=== PATIENT | female | born 1965 | race Caucasian/White ===

== ENCOUNTER 2020-03-04 07:40 | Outpatient (CLI) | payer OTHER, SELFPAY ==
--- NOTE | ~2020-03-04 | CT_ITS ---
EXAMINATION: CT abdomen pelvis wo/w con DATE: 03/04/2020 08:53 INDICATION: Microscopic hematuria TECHNIQUE: Computed tomography (CT) of the abdomen and pelvis was performed without and subsequently with 130 cc Omnipaque 350 intravenous contrast. Automated exposure control and iterative reconstructi on technique were employed. Exam dose: 1195.57 mGy-cm total exam DLP. COMPARISON: 06/04/2016 CT abdomen pelvis FINDINGS: The lung bases are clear. Normal heart size. No pericardial or pleural effusion. Bilateral breast implants are present. The liver, gallbladder, spleen, pancreas, and adrenal glands and kidneys are unremarkable. There is a 5 mm upper pole right renal cyst. No filling defect of the kidney collecting systems, ureters or uri nary bladder. Normal caliber of the abdominal aorta with mild atherosclerotic calcification. No intraperitoneal or retroperitoneal or pelvic mass lesion or adenopathy or ascites. Normal appendix. There is diverticulosis of the sigmoid colon; no CT evidence of diverticulitis. No bowel obstruction or intraperitoneal free air. The uterus, adnexal areas and urinary bladder are unremarkable. Small fat-containing umbilical hernia. Degenerative disc disease at L5-S1. Included skeletal structures are otherwise unremarkable. IMPRESSION: 5 mm upper pole right renal cyst No cause for microscopic hematuria is identified Mild sigmoid colon diverticulosis Degenerative disc disease at L5-S1 Reviewed, dictated and finalized at Location A. Reviewed, dictated and finalized at location A.
--- NOTE | ~2020-03-04 | XR_ITS ---
XR abdomen/kub 1V DATE: 03/04/2020 08:16 INDICATION: Microscopic hematuria TECHNIQUE: AP projection, 2 views COMPARISON: 03/04/2020 CT abdomen pelvis without and subsequently with IV contrast material FINDINGS: There is a prominent of fecal material within the colon. No bowel obstruction is detected. The psoas shadows are intact. No visceromegaly is detected. Included skeletal structures are unremarkable. IMPRESSION: Nonspecific abdomen Reviewed, dictated and finalized at Location A. Reviewed, dictated and finalized at location A. IMPRESSION: Nonspecific abdomen
== END 2020-03-04 07:41 | disposition home or self-care (01) ==
PROVIDERS: PCP Internal Medicine; Visit Provider Urology
DX: R31.29 Other microscopic hematuria (principal); N28.1 Cyst of kidney, acquired; K57.90 Diverticulosis of intestine, part unspecified, without perforation or abscess without bleeding; M51.37 Other intervertebral disc degeneration, lumbosacral region
CPT/HCPCS: 74018; 74178; Q9967

== ENCOUNTER 2021-08-19 08:47 | Emergency (ER) | payer OTHER, SELFPAY ==
--- NOTE | ~2021-08-19 | CT_ITS ---
EXAMINATION: CT brain wo con INDICATION: Headache COMPARISON: None TECHNIQUE: Standard unenhanced head CT. The dose-length product (DLP) was 605.33 mGy-cm. The mA was a djusted according to patient size. Iterative reconstruction technique was employed. FINDINGS: There is no intracranial hemorrhage, acute infarction, or abnormal mass lesion. The ventric les are normal. There is no abnormal mass effect or midline shift. The styles-white matter differentiat ion is normal. The basal cisterns are patent. The orbits are normal. The paranasal sinuses, mastoids and calvarium are normal. IMPRESSION: 1. No acute intracranial abnormality. Reviewed, dictated and finalized at location A.
--- NOTE | ~2021-08-19 | CT_ITS ---
EXAMINATION: CT cervical spine wo con EXAM DATE: 08/19/2021 09:51 INDICATION: Fell down 8 steps 4 days ago. TECHNIQUE: Spiral CT of the cervical spine was performed without contrast. Axial images were reviewe d. Coronal and sagittal reformatted images cervical spine were also reviewed. The dose-length produc t (DLP) for this examination was 322.55 mGy-cm. The exposure was tailored according to patient size (auto mA exposure control), and iterative reconstruction (ASIR) was used as additional dose reduction technique. There is no prior study for comparison. FINDINGS: There is mild reversal of the normal cervical lordosis which may be positional or spasm. Th ere is no evidence of acute cervical fracture. The odontoid process is intact. Pre-dens space is no rmal. Prevertebral soft tissue is normal. There are no soft tissue abnormalities identified. There is no disc space widening or traumatic vertebral body subluxation suspected. There is moderate disc disease at C5-6, mild to moderate at C6-7. Fused right C2-3 facet joints. Mild to moderate cervical arthropathy. A detailed level by level evaluation of spondylosis can be added as addendum if requeste d. IMPRESSION: 1. No acute cervical fracture. 2. Reversal normal cervical lordosis. 3. Mild to moderate cervical spondylosis. Reviewed, dictated and finalized at location B.
[2021-08-19 09:02] VITALS: BP 146/85; PULSE 85; RESP 18; TEMP 36.4; O2SAT 99
--- NOTE | 2021-08-19 10:50 | ED.GENADULT ---
HPI - General Adult General Chief complaint: Head Injury Stated complaint: FELL 8 STEPS 08/15 HEAD INJ Time Seen by Provider: 08/19/21 09:11 Source: patient Mode of arrival: ambulatory Limitations: no limitations History of Present Illness HPI narrative: Patient presents for evaluation of head injury that occurred 4 days ago after she fell down 8 steps in her home. Patient reports that EMS was called and she was evaluated but refused transport. Patient reports that she believes she may have lost consciousness for a few moments but if so it was brief because she was then able to get up and let her son a.m. Patient reports impact to the coil in the right side of her head. She reports that she has had some headache and nausea that concerned her so she called her primary care who referred her to the emergency room for CT and evaluation. Patient reports she has not had issues with her vision, speech, unilateral weakness, drainage from her orifices. Patient reports pain and stiffness to her neck. Patient also has a bruise to her right buttock but denies any back pain or pain to her sacrum or coccyx. Related Data Home Medications Medication Instructions Recorded Confirmed cholecalciferol (vitamin D3) 100 mcg PO DAILY 08/19/21 [Vitamin D3] escitalopram oxalate mg 08/19/21 estradiol mcg VAGINAL 08/19/21 Allergies Allergy/AdvReac Type Severity Reaction Status Date / Time No Known Allergies Allergy Unknown Verified 08/19/21 09:05 Review of Systems Review of Systems: CONSTITUTIONAL: Denies fever, chills, or sweats. EYES: Denies visual changes, redness, or discharge. ENT: Denies rhinorrhea, congestion, sore throat, or otalgia. CARDIOVASCULAR: Denies chest pain, palpitations, or edema. RESPIRATORY: Denies cough or dyspnea. GASTROINTESTINAL: Reports nausea denies abdominal pain, vomiting, or diarrhea. GENITOURINARY: Denies dysuria or hematuria. SKIN: Reports contusion denies rash or itching. MUSCULOSKELETAL: Reports neck pain denies back pain, joint pain, or myalgia. NEUROLOGIC: Reports headache denies numbness, dizziness, or weakness. PSYCHIATRIC: Denies anxiety or depression. [facility] Family History Family History (Updated 01/09/12 @ 09:39 by DOCTOR UNKNOWN) Other Family history of malignant neoplasm of cervix Family history of malignant neoplasm of male breast Social History Social History Smoking status: Never smoker Alcohol intake: never Exam Narrative: GENERAL: Well-appearing, well-nourished, and in no acute distress. HEAD: Normocephalic, atraumatic. No hematomas or skull deviations palpated. Face symmetrical. EYES: PERRLA and EOMI. ENT: Nares clear, no rhinorrhea or epistaxis. Mucous membranes moist. Oropharynx without tonsillar hypertrophy exudate or other lesions. Bilateral TMs pearly styles nonbulging. No hemotympanum. NECK: Supple. No adenopathy or masses. Range of motion intact. Spasming of paracervical muscles noted. CHEST: Clear to auscultation. No respiratory distress. No wheezes rales or rhonchi HEART: Regular rate and rhythm. No murmur heard. Normal peripheral pulses. ABDOMEN: Soft, nontender, nondistended, normal active bowel sounds. BACK: No vertebral point tenderness. No loss of range of motion. EXTREMITIES: Normal range of motion. No edema. SKIN: Contusion to right buttock. Warm, dry, no rash. NEURO: No focal deficits. Alert and oriented x3. No unilateral weakness. PSYCH: Normal mood and affect. Course Vital Signs Vital signs: Vital Signs Temperature 97.6 F 08/19/21 09:02 Pulse Rate 85 08/19/21 09:02 Respiratory Rate 18 08/19/21 09:02 Blood Pressure 146/85 H 08/19/21 09:02 Pulse Oximetry 99 08/19/21 09:02 Temperature 97.6 F 08/19/21 09:02 Pulse Rate 85 08/19/21 09:02 Respiratory Rate 18 08/19/21 09:02 Blood Pressure 146/85 H 08/19/21 09:02 Pulse Oximetry 99 08/19/21 09:02 Medical Decision Making MICHAEL Narrative Medical decision joy
[2021-08-19] MEDS: IBUPROFEN 600 MG TABLET PO (11:00)
[2021-08-19] MEDS: ONDANSETRON HCL ODT 4 MG TABLET PO (11:00)
== END 2021-08-19 11:49 | disposition home or self-care (01) ==
PROVIDERS: Emergency Provider Emergency Medicine; PCP Internal Medicine
DX: S06.0X9A Concussion with loss of consciousness of unspecified duration, initial encounter (principal); M47.812 Spondylosis without myelopathy or radiculopathy, cervical region; W10.9XXA Fall (on) (from) unspecified stairs and steps, initial encounter
CPT/HCPCS: 70450; 72125; 99284; A9270

== ENCOUNTER → 2022-07-14 16:03 | Outpatient (CLI) | payer OTHER, SELFPAY ==
--- NOTE | ~2022-07-14 | DEXA_ITS ---
Bone Density Report Name: JACY SCOTT Age: 56 Sex: Female Ethnicity: White Date of : 1965 Indication: postmenopausal; screening for osteoporosis; parental hip fracture; Referring Provider: DAKSHA, EARL Jean Study: Bone densitometry was performed. Exam Date: July 14, 2022 Accession number: [id number] Bone Density: Region BMD T-score Z-score Classification AP Spine (L1-L4) 0.839 -1.9 -0.7 Osteopenia Femoral Neck (Left) 0.704 -1.3 -0.2 Osteopenia Total Hip (Left) 0.864 -0.6 0.1 Normal Femoral Neck (Right) 0.638 -1.9 -0.8 Osteopenia Total Hip (Right) 0.817 -1.0 -0.2 Normal Total Hip Mean 0.841 -0.8 -0.1 Normal World Health Organization criteria for BMD impression classify patients as: Normal (T-score at or above -1.0), Osteopenia (T-score between -1.0 and -2.5), or Osteoporosis (T-score at or below -2.5). 10-year Fracture Risk(1): Major Osteoporotic Fracture 16% Hip Fracture 0.9% Reported Risk Factors: [place] (), Neck BMD=0.638, BMI=25.6, parental fracture (1) FRAX(R) Version 3.08. Fracture probability calculated for an untreated patient. Fracture probability may be lower if the patient has received treatment. Clinical Information Provided by Patient: Parent has had a hip fracture Has used the following medications: Vitamin D Patient maximum height was 65.5 Menopause Age: 41 No regular weight bearing exercise Drinks caffeinated beverages Onset of menses at age 13 Number of children 1 Impression: The patient has low bone mass, based on the Total Spine T-score. The patient has an estimated ten-year risk of hip fracture of 0.9% and an estimated ten-year risk of major fracture of 16%, based on the WHO FRAX algorithm. The patient has risk factors, including: parental hip fracture. Discussion: BONE DENSITY IS LOW AT ONE OR MORE SKELETAL SITES. This patient's lowest T-score is low at one or more skeletal sites. It meets the World Health Organization's (WHO) criteria for ?low bone mass? (T-score between -1.0 and -2.5). The patient's 10-year risk of fracture as calculated by FRAX is less than the threshold where pharmacological therapy is recommended by the National Osteoporosis Foundation (NOF). However, all treatment decisions require clinical judgment and consideration of individual patient factors, including patient preferences, comorbidities, previous drug use, risk factors not captured in the FRAX model (e.g., frailty, falls, vitamin D deficiency, increased bone turnover, interval significant decline in bone density) and possible under or overestimation of fracture risk by FRAX. The patient should follow a healthful lifestyle (good nutrition with adequate calcium and vitamin D, and appropriate weight-bearing exercise). Follow-Up: Consider repeating this study in 2 to 3 years
== END ==
PROVIDERS: PCP Internal Medicine; Visit Provider Internal Medicine Medical Oncology
DX: C50.012 Malignant neoplasm of nipple and areola, left female breast (principal); Z17.0 Estrogen receptor positive status [ER+]; Z78.0 Asymptomatic menopausal state; M85.88 Other specified disorders of bone density and structure, other site; M85.852 Other specified disorders of bone density and structure, left thigh; M85.851 Other specified disorders of bone density and structure, right thigh
CPT/HCPCS: 77080

== ENCOUNTER 2024-12-13 08:40 | Outpatient (CLI) | payer OTHER, SELFPAY ==
--- NOTE | ~2024-12-13 | DEXA_ITS ---
Bone Density Report Name: JACY SCOTT Age: 59 Sex: Female Ethnicity: White Date of : 1965 Indication: osteopenia; monitoring treatment; parental hip fracture; cancer; Referring Provider: YAN, BENITO Study: Bone densitometry was performed. Exam Date: December 13, 2024 Accession number: [id number] Bone Density: Region BMD T-score Z-score Classification AP Spine(L1-L4) 0.871 -1.6 -0.2 Osteopenia Femoral Neck (Left) 0.678 -1.5 -0.3 Osteopenia Total Hip (Left) 0.834 -0.9 0.0 Normal Femoral Neck (Right) 0.653 -1.8 -0.5 Osteopenia Total Hip (Right) 0.851 -0.7 0.2 Normal Total Hip Mean 0.842 -0.8 0.1 Normal World Health Organization criteria for BMD impression classify patients as: Normal (T-score at or above -1.0), Osteopenia (T-score between -1.0 and -2.5), or Osteoporosis (T-score at or below -2.5). 10-year Fracture Risk: FRAX not reported because: Treated for osteoporosis Previous Exams: Region Exam Age BMD T-score BMD Change BMD Change Date g/cm2 vs Baseline vs Previous AP Spine (L1-L4) 12/13/2024 59 0.871 -1.6 -0.062 (-6.6%) 0.021 (2.4%)# 09/14/2018 53 0.851 -1.8 -0.082 (-8.8%) -0.082 (-8.8%) 03/18/2015 49 0.933 -1.0 Total Hip(Left) 12/13/2024 59 0.834 -0.9 -0.072 (-8.0%) -0.052 (-5.8%) 09/14/2018 53 0.886 -0.5 -0.021 (-2.3%) -0.021 (-2.3%) 03/18/2015 49 0.907 -0.3 Total Hip(Right) 12/13/2024 59 0.851 -0.7 -0.025 (-2.8%) 0.011 (1.3%)# 09/14/2018 53 0.840 -0.8 -0.036 (-4.1%) -0.036 (-4.1%) 03/18/2015 49 0.875 -0.5 *Denotes significance at 95% confidence level, LSC for AP Spine = 0.022 g/cm2, LSC for Total Hip = 0.027 g/cm2 # Denotes dissimilar scan types or analysis methods Clinical Information Provided by Patient: Parent has had a hip fracture Is being treated for osteoporosis Has used the following medications: Fosamax (i.e. alendronate), Prolia (i.e. denosumab) Has the following medical conditions: Cancer Patient maximum height was 65 Menopause Age: 45 Drinks caffeinated beverages Onset of menses at age 12 Number of children 1 Impression: The patient has low bone mass, based on the Right Femoral Neck T-score. The patient has risk factors, including: parental hip fracture. No significant bone loss was observed. Discussion: PATIENT UNDER TREATMENT WITH NO SIGNIFICANT BMD LOSS SINCE LAST EXAM. In an untreated patient, BMD typically declines with age. A lack of decline or gain is usually a sign that treatment is efficacious and fracture risk is reduced. It is important to ask patients whether they are taking their medications and to encourage continued and appropriate compliance with their osteoporosis therapies to reduce fracture risk. It is also important to review their risk factors and encourage appropriate calcium and vitamin D intakes, exercise, fall prevention and other lifestyle measures. Follow-Up: Consider a repeat BMD and Vertebral Fracture Assessment (VFA) exam in 2 years or sooner if medically necessary, to reassess this patient's status. Reported by: AUDREY on 12/13/2024 9:12:00 AM. Reviewed, dictated and finalized at location [facility]
--- OUTSIDE RECORDS SUMMARY | 2024-12-13 09:11 | XMS_ITS | Encounter Summary ---
Author Organization [facility] Address [address] [place] [address] Care Team Providers Care Pipe Testing Technician Name Role Phone Bret Fraser MD Primary Care Provider [phone] Encounter Details Date Type Department Care Team (Latest Contact Info) Description 02/20/2003 Outpatient Historical [facility] PATIENT IN A BED Naida Wall MD [address] [place] [address] Palmer Argueta MD [address] [place] [address] PREG COMPL NEC-ANTEPART (Primary Dx) Social History Tobacco Use Types Packs/Day Years Used Date Smoking Tobacco: Never Assessed Comments Unknown Sex and Gender Information Value Date Recorded Sex Assigned at Not on file Legal Sex 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 Gender Identity Not on file Sexual Orientation Not on file documented as of this encounter Plan of Treatment Upcoming Encounters Date Type Department Care Team (Late st Contact Info) Description 06/04/2025 1:30 PM CDT Office Visit [facility] ONCOLOGY AND HEMATOLOGY-[facility] [address] [place] [address] Monica Albert MD [address] [place] [address] documented as of this encounter Visit Diagnoses Diagnosis Other specified complication, antepartum(646.83)- Primary Other specified complication, antepartum documented in this encounter Care Teams Pipe Testing Technician Relationship Specialty Start Date End Date Bret Fraser MD [address] [place] [address] PCP - General Internal Medicine 05/28/24 documented as of this encounter
--- OUTSIDE RECORDS SUMMARY | 2024-12-13 09:11 | XMS_ITS | Encounter Summary ---
Author Organization [facility] Address [address] [place] [address] Care Team Providers Care Internet Architect Name Role Phone Bret Fraser MD Primary Care Provider [phone] Encounter Details Date Type Department Care Team (Latest Contact Info) Description 09/03/2024 [facility] [address] Bret Fraser MD [address] [place] [address] DIANELYS KILPATRICKKIARABASSAM PHYSICAL FORM Social History Tobacco Use Types Packs/Day Years Used Date Smoking Tobacco: Never Smokeless Tobacco: Never Comments:counseled by Dr Shari shoemaker Alcohol Use Standard Drinks/Week Comments Never 0 (1 standard drink = 0.6 oz pur e alcohol) PHQ-2 Answer Date Recorded Patient Health Questionnaire-2 Score 0 05/31/2024 Comments No Sex and Gender Information Value Date Recorded Sex Assigned at Not on file Legal Sex Female 7:36 PM CDT Gender Identity Not on file Sexual Orientation Not on file documented as of this encounter Plan of Treatment Upcoming Encounters Date Type Department Care Team (Late st Contact Info) Description 05/30/2025 8:20 AM CDT Office Visit [facility] [address] [place] [address] Bret Fraser MD [facility] [address] documented as of this encounter Visit Diagnoses Not on filedocumented in this encounter Additional Health Concerns Assessment Noted Time PHQ-9 Depression Total Score: 0 05/31/20 24 8:30 AM CDT documented as of this encounter Care Teams Internet Architect Relationship Specialty Start Date End Date Bret Fraser MD [address] [place] [address] PCP - General INTERNAL MEDICINE 05/31/22 documented as of this encounter
--- OUTSIDE RECORDS SUMMARY | 2024-12-13 09:11 | XMS_ITS | Encounter Summary ---
Author Organization [facility] Address [address] [place] [address] Care Team Providers Care Post Closing Specialist Name Role Phone Bret Fraser MD Primary Care Provider [phone] Encounter Details Date Type Department Care Team (Late st Contact Info) Description 02/20/2003 Outpatient Historical [facility] Maternal and Ground Floor S [facility] [address] [place] [address] Naida Wall MD [address] [place] [address] Social History Tobacco Use Types Packs/Day Years Used Date Smoking Tobacco: Never Assessed Comments Unknown Sex and Gender Information Value Date Recorded Sex Assigned at Not on file 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 Gender Identity Not on file Sexual Orientation Not on file documented as of this encounter Plan of Treatment Upcoming Encounters Date Type Department Care Team (Late st Contact Info) Description 06/04/2025 1:30 PM CDT Office Visit [facility] ONCOL[facility]Y AND H[facility]ATOLOGY-[facility] [address] [place] [address] Monica Albert MD [address] [place] [address] documented as of this encounter Visit Diagnoses Not on filedocumented in this encounter Care Teams Post Closing Specialist Relationship Specialty Start Date End Date Bret Fraser MD [address] [place] [address] PCP - General Internal Medicine 05/28/24 documented as of this encounter
--- OUTSIDE RECORDS SUMMARY | 2024-12-13 09:11 | XMS_ITS | Encounter Summary ---
Author Organization [facility] Address [address] [place] [address] Care Team Providers Care Capacitor Inspector Name Role Phone Bret Fraser MD Primary Care Provider [phone] Encounter Details Date Type Department Care Team (Latest Contact Info) Description 05/08/2009 Outpatient Historical [facility] Dflt Department Kady Jones MD [address] [place] [address] [place] [address] Encounter for Antineoplastic Chemotherapy Social History Tobacco Use Types Packs/Day Years Used Date Smoking Tobacco: Never Assessed Comments No Sex and Gender Information Value Date Recorded Sex Assigned at Not on file Legal Sex Female 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 Gender Identity Not on file Sexual Orientation Not on file documented as of this encounter Plan of Treatment Upcoming Encounters Date Type Department Care Team (Late st Contact Info) Description 06/04/2025 1:30 PM CDT Office Visit [facility]ATOLOGY-[facility] [address] [place] [address] Monica Albert MD [address] [place] [address] documented as of this encounter Visit Diagnoses Diagnosis Encounter for antineoplastic chemotherapy documented in this encounter Care Teams Capacitor Inspector Relationship Specialty Start Date End Date Bret Fraser MD [address] [place] [address] PCP - General Internal Medicine 05/28/24 documented as of this encounter
--- OUTSIDE RECORDS SUMMARY | 2024-12-13 09:11 | XMS_ITS | Encounter Summary ---
Author Organization [facility] Address [address] [place] [address] Care Team Providers Care Facilities Administrator Name Role Phone Bret Fraser MD Primary Care Provider [phone] Encounter Details Date Type Department Care Team (Late st Contact Info) Description 01/09/2003 Outpatient Historical [facility] Maternal and Ground Floor S [facility] [address] [place] [address] Palmer Argueta MD [address] [place] [address] Social History Tobacco Use Types Packs/Day Years Used Date Smoking Tobacco: Never Assessed Comments Unknown Sex and Gender Information Value Date Recorded Sex Assigned at Not on file Legal Sex Female 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 [address] [place] [address] Monica Albert MD [address] [place] [address] documented as of this encounter Visit Diagnoses Not on filedocumented in this encounter Care Teams Facilities Administrator Relationship Specialty Start Date End Date rBet Fraser MD [address] [place] [address] PCP - General Internal Medicine 05/28/24 documented as of this encounter
--- OUTSIDE RECORDS SUMMARY | 2024-12-13 09:11 | XMS_ITS | Encounter Summary ---
Author Organization [facility] Address 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 ONCOLOGY AND HEMATOLOGY-[address] [address] Monica Albert MD [address] [place] [address] documented as of this encounter Visit Diagnoses Diagnosis Elderly primigravida, antepartum- Primary documented in this encounter Care Teams Elevator Troubleshooter Relationship Specialty Start Date End Date Bret Fraser MD [address] [place] [address] PCP - General Internal Medicine 05/28/24 documented as of this encounter
--- OUTSIDE RECORDS SUMMARY | 2024-12-13 09:11 | XMS_ITS | Encounter Summary ---
Author Organization [facility] Address [address] [place] [address] Care Team Providers Care Oracle Hrms Developer Name Role Phone Bret Fraser MD Primary Care Provider [phone] Encounter Details Date Type Department Care Team (Late st Contact Info) Description 03/28/2003 Outpatient Historical [facility] Maternal and Ground Floor [facility] [address] [place] [address] Naida Wall MD [address] [place] [address] Social History Tobacco Use Types Packs/Day Years Used Date Smoking Tobacco: Never Assessed Comments Unknown Sex and Gender Information Value Date Recorded Sex Assigned at Not on file 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 Gender Identity Not on file Sexual Orientation Not on file documented as of this encounter Plan of Treatment Upcoming Encounters Date Type Department Care Team (Late st Contact Info) Description 06/04/2025 1:30 PM CDT Office Visit [facility] ONCOLOG[facility]ATOLOGY-[facility] [address] [place] [address] Monica Albert MD [address] [place] [address] documented as of this encounter Visit Diagnoses Not on filedocumented in this encounter Care Teams Oracle Hrms Developer Relationship Specialty Start Date End Date Bret Fraser MD [address] [place] [address] PCP - General Internal Medicine 05/28/24 documented as of this encounter
--- OUTSIDE RECORDS SUMMARY | 2024-12-13 09:11 | XMS_ITS | Encounter Summary ---
Author Organization [facility] Address 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 Gender Identity Not on file Sexual Orientation Not on file documented as of this encounter Plan of Treatment Upcoming Encounters Date Type Department Care Team (Late st Contact Info) Description 06/04/2025 1:30 PM CDT Office Visit [facility] ONCOLOGY AND HEMATOLOGY-[address] [address] Monica Albert MD [address] [place] [address] documented as of this encounter Visit Diagnoses Not on filedocumented in this encounter Care Teams Movie Actor Relationship Specialty Start Date End Date Bret Fraser MD [address] [place] [address] PCP - General Internal Medicine 05/28/24 documented as of this encounter
--- OUTSIDE RECORDS SUMMARY | 2024-12-13 09:11 | XMS_ITS | Encounter Summary ---
Author Organization [facility] Address [address] [place] [address] Care Team Providers Care Padded Products Inspector Trimmer Name Role Phone Bret Fraser MD Primary Care Provider [phone] Encounter Details Date Type Department Care Team (Latest Contact Info) Description 02/17/2009 Outpatient Historical [facility] [address] Rachel Calix MD [address] [address] Malignant Neoplasm of Breast (Female), Unspecified Site (CMS/HCC) Social History Tobacco Use Types Packs/Day Years Used Date Smoking Tobacco: Never Assessed Comments Unknown Sex and Gender Information Value Date Recorded Sex Assigned at Not on file 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 Gender Identity Not on file Sexual Orientation Not on file documented as of this encounter Plan of Treatment Upcoming Encounters Date Type Department Care Team (Late st Contact Info) Description 06/04/2025 1:30 PM CDT Office Visit [facility] ONCOLOGY AND HEMATOLOGY-[address] [address] Monica Albert MD [address] [place] [address] documented as of this encounter Procedures Procedure Name Priority Date/Time Associated Diagnosis Comments CBC WITH DIFFERENTIAL Routine 02/17/2009 9:21 PM CDT COMPREHENSIVE METABOLIC PANEL Routine 02/17/2009 9:21 PM CDT documented in this encounter Results * (ABNORMAL) COMPREHENSIVE METABOLIC PANEL (02/17/2009 9:21 PM CDT) CALCIUM 9.6 8.6 - 10.2 mg/dL [facility] CHLORIDE 100 96 - 108 mmol/L [facility] ALBUMIN 4.4 3.4 - 4.8 g/dL [facility] CREATININE 0.79 0.51 - 0.95 mg/dL [facility] SODIUM 136 135 - 145 mmol/L [facility] ALT 59(H) 0 - 31 U/L [facility] ALKALINE PHOSPHATASE 55 35 - 104 U/L [facility] BILIRUBIN TOTAL 0.3 0.2 - 1.0 mg/dL [facility] CO2 28 22 - 30 mmol/L [facility] TOTAL PROTEIN 7.1 6.3 - 8.6 g/dL [facility] POTASSIUM 4.1 3.5 - 4.9 mmol/L [facility] GLUCOSE 95 65 - 99 mg/dL [facility] AST 41(H) 12 - 32 U/L [facility] BUN 17 6 - 20 mg/dL [facility] GFR, >60 >=60 mL/min/1.7 sq meter [facility] GFR >60 >=60 mL/min/1.7 sq meter [facility] Comment: Modification of Diet in Renal Disease (MDRD) study formula. Estimated GFR rate interpretative information for both Americans and non- Americans is available on the [facility] Intranet at: [email or web address] Select: Lab Policies and Procedures Select: Reference Ranges - GFR Blood specimen (specimen) 02/17/2009 9:21 PM CDT 02/17/2009 9:21 PM CDT us Rachel Calix MD CHEMISTRY ORDERABLES Edited INTERFACE SYSTEM Refer to clinic/hospital department [facility] CLIA# [id number] [address] [place] [address] * (ABNORMAL) CBC WITH DIFFERENTIAL (02/17/2009 9:21 PM CDT) MCV 93.2 82.0 - 99.0 fL [facility] PLATELETS 201 140 - 350 K/uL [facility] HEMOGLOBIN 12.9 11.8 - 14.8 g/dL [facility] RDW 12.5 11.5 - 14.5 % [facility] WBC 3.0(L) 4.0 - 9.8 K/uL [facility] MCH 31.4 27.2 - 32.6 pg [facility] MPV 11.5 9.3 - 12.4 fL [facility] HEMATOCRIT 38.3 35.5 - 44.0 % [facility] RDW-STDEV 42.0 37.1 - 48.7 fL [facility] RBC 4.11 3.90 - 4.90 M/uL [facility] MCHC 33.7 31.5 - 35.5 % [facility] EOSINOPHILS 3 0 - 7 % [facility] EOSINOPHIL ABSOLUTE 0.09 0.00 - 0.70 K/uL [facility] LYMPHOCYTES 25 16 - 45 % [facility] LYMPHOCYTE ABSOLUTE 0.75 0.70 - 4.50 K/uL [facility] BASOPHILS 1 0 - 2 % [facility] BASOPHILS ABSOLUTE 0.03 0.00 - 0.20 K/uL [facility] MONOCYTES 15(H) 3 - 13 % [facility] MONOCYTE ABSOLUTE 0.43 0.10 - 1.30 K/uL [facility] NEUTROPHILS 56 45 - 70 % [facility] NEUTROPHIL ABSOLUTE 1.65(L) 1.90 - 7.00 K/uL [facility] Blood specimen (specimen) 02/17/2009 9:21 PM CDT 02/17/2009 9:21 PM CDT Narrative INTERFACE SYSTEM - 02/19/2009 2:06 PM CDT faxed to [phone] 02/19/09 14:06 ve us Rachel aClix MD HEMATOLOGY ORDERABLES Edited INTERFACE SYSTEM Refer to clinic/hospital department [facility] CLIA# [id number] [address] [place] [address] documented in this encounter Visit Diagnoses Diagnosis Malignant neoplasm of breast (female), unspecified site (CMS/HCC) Malignant neoplasm of breast (female), unspecified site documented in this encounter Care Teams Padded Products Inspector Trimmer Relationship Specialty Start Date End Date Bret Fraser MD [address] [place] [address] PCP - General Internal Medicine 05/28/24 documented as of this encounter
--- OUTSIDE RECORDS SUMMARY | 2024-12-13 09:11 | XMS_ITS | Encounter Summary ---
Author Organization [facility] Address [address] [place] [address] Care Team Providers Care Family Protection Specialist Name Role Phone Bret Fraser MD Primary Care Provider [phone] Encounter Details Date Type Department Care Team (Late st Contact Info) Description 03/27/2009 Outpatient Historical [facility], [address] Kady Jones MD [address] [place] [address] [place] [address] Malignant Neoplasm of Breast (Female), Unspecified Site (CMS/HCC) Social History Tobacco Use Types Packs/Day Years Used Date Smoking Tobacco: Never Assessed Comments Unknown Sex and Gender Information Value Date Recorded Sex Assigned at Not on file 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 Gender Identity Not on file Sexual Orientation Not on file documented as of this encounter Plan of Treatment Upcoming Encounters Date Type Department Care Team (Late st Contact Info) Description 06/04/2025 1:30 PM CDT Office Visit [facility] ONCOLOGY AND HEMATOLOGY[address] [address] Monica Albert MD [address] [place] [address] documented as of this encounter Procedures Procedure Name Priority Date/Time Associated Diagnosis Comments CANCER ANTIGEN 27-29 Routine 03/27/2009 8:57 PM CDT COMPREHENSIVE METABOLIC PANEL Routine 03/27/2009 8:57 PM CDT documented in this encounter Results * CANCER ANTIGEN 27-29 (03/27/2009 8:57 PM CDT) CA 27-29 15 <38 U/mL [facility] Comment: THIS TEST WAS PERFORMED USING THE SIEMENS (Yulex) CHEMILUMINESCENT METHOD. VALUES OBTAINED FROM DIFFERENT ASSAY METHODS CANNOT BE USED INTERCHANGEABLY. CA27.29 LEVELS, REGARDLESS OF VALUE, SHOULD NOT BE INTERPRETED ABSOLUTE EVIDENCE OF THE PRESENCE OR ABSENCE OF DISEASE. Lab test performed by: [facility] [address] [place] [address] JOSEPH CH MDThibecky test was performed using the Elias Borges Urzeda/Damaso CA 27.29 Assay. 03/27/2009 8:57 PM CDT 03/27/2009 8:59 PM CDT us Kady Jones MD CHEMISTRY ORDERABLES COM Fi nal Result INTERFACE SYSTEM Refer to clinic/hospital department [facility] CLIA# [id number] [address] [facility] [place] [place] [address] * (ABNORMAL) COMPREHENSIVE METABOLIC PANEL (03/27/2009 8:57 PM CDT) CO2 27 22 - 30 mmol/L [facility] BILIRUBIN TOTAL 0.3 0.2 - 1.0 mg/dL [facility] POTASSIUM 4.2 3.5 - 4.9 mmol/L [facility] TOTAL PROTEIN 7.0 6.3 - 8.6 g/dL [facility] GLUCOSE 81 65 - 99 mg/dL [facility] AST 38(H) 12 - 32 U/L [facility] BUN 13 6 - 20 mg/dL [facility] CALCIUM 10.0 8.6 - 10.2 mg/dL [facility] ALBUMIN 4.4 3.4 - 4.8 g/dL [facility] CHLORIDE 103 96 - 108 mmol/L [facility] CREATININE 0.80 0.51 - 0.95 mg/dL [facility] ALT 38(H) 0 - 31 U/L [facility] SODIUM 138 135 - 145 mmol/L [facility] ALKALINE PHOSPHATASE 69 35 - 104 U/L [facility] GFR, >60 >=60 mL/min/1.7 sq meter [facility] GFR >60 >=60 mL/min/1.7 sq meter [facility] Comment: Modification of Diet in Renal Disease (MDRD) study formula. Estimated GFR rate interpretative information for both Americans and non- Americans is available on the [facility] Intranet at: [email or web address] Select: Lab Policies and Procedures Select: Reference Ranges - GFR 03/27/2009 8:57 PM CDT 03/27/2009 8:57 PM CDT Kady Jones MD CHEMISTRY ORDERABLES Edited INTERFACE SYSTEM Refer to clinic/hospital department [facility] CLIA# [id number] [address] [place] [address] documented in this encounter Visit Diagnoses Diagnosis Malignant neoplasm of breast (female), unspecified site (CMS/HCC) Malignant neoplasm of breast (female), unspecified site documented in this encounter Care Teams Family Protection Specialist Relationship Specialty Start Date End Date Bret Fraser MD [address] [place] [address] (work) PCP - General Internal Medicine 05/28/24 documented as of this encounter
--- OUTSIDE RECORDS SUMMARY | 2024-12-13 09:11 | XMS_ITS | Encounter Summary ---
Author Organization [facility] Address 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 Gender Identity Not on file Sexual Orientation Not on file documented as of this encounter Plan of Treatment Upcoming Encounters Date Type Department Care Team (Late st Contact Info) Description 06/04/2025 1:30 PM CDT Office Visit [facility] ONCOLOGY AND HEMATOLOGY-[address] [address] Monica Albert MD [address] [place] [address] documented as of this encounter Visit Diagnoses Diagnosis Elderly primigravida, antepartum- Primary documented in this encounter Care Teams Credit Collections Manager Relationship Specialty Start Date End Date Bret Fraser MD [address] [place] [address] PCP - General Internal Medicine 05/28/24 documented as of this encounter
--- OUTSIDE RECORDS SUMMARY | 2024-12-13 09:11 | XMS_ITS | Encounter Summary ---
Author Organization [facility] Address [address] [place] [address] Care Team Providers Care Captain Waiter/Waitress Name Role Phone Bret Fraser MD Primary Care Provider Encounter Details Date Type Department Care Team (Latest Contact Info) Description 06/09/2009 Outpatient Historical [facility] Dflt Department Kady Jones MD [address] [place] [address] [place] [address] Encounter for Antineoplastic Chemotherapy Social History Tobacco Use Types Packs/Day Years Used Date Smoking Tobacco: Never Alcohol Use Standard Drinks/Week Comments Yes 0 (1 standard drink = 0.6 oz pur e alcohol) rare Comments No Sex and Gender Information Value Date Recorded Sex Assigned at Not on file 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 Gender Identity Not on file Sexual Orientation Not on file documented as of this encounter Plan of Treatment Upcoming Encounters Date Type Department Care Team (Late st Contact Info) Description 06/04/2025 1:30 PM CDT Office Visit [facility] ONCOLOGY AND HEMATOLOGY-[address] [address] Monica Albert MD [address] [place] [address] documented as of this encounter Visit Diagnoses Diagnosis Encounter for antineoplastic chemotherapy documented in this encounter Care Teams Captain Waiter/Waitress Relationship Specialty Start Date End Date Bret Fraser MD [address] [place] [address] PCP - General Internal Medicine 05/28/24 documented as of this encounter
--- OUTSIDE RECORDS SUMMARY | 2024-12-13 09:11 | XMS_ITS | Clinical Summary ---
Author Organization [facility] Address [address] [place] [address] Care Team Providers Care Pathology Lab Technician Name Role Phone Bret Fraser MD Primary Care Provider [phone] Allergies Active Allergy Reactions Criticality Noted Date Comments Alendronate Other (see comment) 11/29/2023 Tail bone and hip pain Medications Cholecalciferol 50 MCG (1999 UT) Cap Take 4,000 Int'l Units by mouth. Active Estradiol 10 MCG vaginal tablet 03/30/20 22 Active amphetamine-dextr oamphetamine (ADDERALL) 10 MG tabletIndications :Attention deficit hyperactivity disorder (ADHD), predominantly inattentive type Take 1 tablet (10 mg total) by mouth daily. 30 tablet 05/31/20 24 Active escitalopram (LEXAPRO) 10 MG tabletIndications :HANS (generalized anxiety disorder) Take 1 tablet (10 mg total) by mouth every morning. 90 tablet 1 05/31/20 24 Active oxybutynin XL (DITROPAN-XL) 5 MG 24 hr tabletIndications :Mixed stress and urge urinary incontinence Take 1 tablet (5 mg total) by mouth daily. 90 tablet 1 05/31/20 24 Active denosumab (PROLIA) 60 MG/ML injectionIndicati ons:Osteoporosis, unspecified osteoporosis type, unspecified pathological fracture presence Inject 1 mL (60 mg total) into the skin every 6 (six) months. Mail to: [place], [facility] [address]. 1 mL 1 08/30/20 24 Active Active Problems Problem Noted Date Diagnosed Date HANS (generalized anxiety disorder) 06/28/2022 ADD (attention deficit disorder) 06/28/2022 Hematuria 05/31/2022 Malignant neoplasm of breast ([facility]/HCC [facility]/HCC) 0 04/17/2009 Overview (05/31/2022): 08/13/08 LEFT breast cancer IDC T1c Ni+ M0 ER 21% MA- HER2 4.4 BRCA 1/2 negative 08/27/08 LEFT LUMP and slnd 09/26/08-11/27/08 AC x 4 and Taxotere and Herceptin until November 2009 02/26/09 b/l mastectomy 04/03/09 TMX Last Assessment & Plan: 5 years out On TMX 4 years Taking vit D monthly - due now Green smoothies now. 08/13/08 LEFT breast cancer IDC T1c Ni+ M0 ER 21% MA- HER2 4.4 BRCA 1/2 negative 08/27/08 LEFT LUMP and slnd 09/26/08-11/27/08 AC x 4 and Taxotere and Herceptin until November 2009 02/26/09 b/l mastectomy 04/03/09 TMX Last Assessment & Plan: 5 years out On TMX 4 years Taking vit D monthly - due now Green smoothies now. Immunizations Name Administration Dates Next Due Fluzone (IIV3, Trivalent, 0. 5 ML Prefilled Syringe) 08/30/2024 Influenza (Generic) 10/06/2021,08/27/2014 Influenza Adult (Generic) 08/10/2022,09/02/2015 MODERNA COVID-19 (12+) MRNA, LNP-S, PF, 100 MCG/ 0.5 ML DOSE 01/30/2021,01/02/2021,12/05/2020 PFIZER COVID-19 (NEAL CAP), MRNA, LNP-S, PF, 30 MCG/0.3 ML FAWN-SUCROSE, IM 03/15/2022 PFIZER COVID-19 (ORIGINAL FO RMULATION, PURPLE CAP) mRNA, LNP-S, PF, 30 MCG/0.3 ML DOSE 08/27/2021 Shingrix 04/22/2022,02/07/2022 Td, Adsorbed, Preservative F ree, Adult Use, Lf Unspecified 02/01/2016 Tdap (Adacel) 10/31/2022 Family History Medical History Relation Comments Diabetes Father Heart Attack Father Heart Disease Father Arthritis Mother Cancer Mother Hyperlipidemia Sister Relation Status Comments Father Alive Mother Alive Sister Alive Social History Tobacco Use Types Packs/Day Years Used Date Smoking Tobacco: Never Smokeless Tobacco: Never Tobacco Cessation:Counseling Given: Yes Comments:counseled by Dr Fraser Alcohol Use Standard Drinks/Week Comments Never 0 (1 standard drink = 0.6 oz pur e alcohol) PHQ-2 Answer Date Recorded Patient Health Questionnaire-2 Score 0 05/31/2024 Comments No Sex and Gender Information Value Date Recorded Sex Assigned at Not on file Legal Sex Female 7:36 PM CDT Gender Identity Not on file Sexual Orientation Not on file Last Filed Vital Signs Vital Sign Reading Time Taken Comments Blood Pressure 135/87 08/30/2024 9:34 AM MANAGER UTILITY Pulse 77 08/30/2024 9:34 AM MANAGER UTILITY Temperature 36.3 C (97.3 F) 08/30/2024 9:34 AM MANAGER UTILITY Respiratory Rate 18 08/30/2024 9:34 AM MANAGER UTILITY Oxygen Saturation 98% 08/30/2024 9:34 AM MANAGER UTILITY Inhaled Oxygen Concentration - - Weight 70.5 kg (155 lb 6.4 oz) 08/30/2024 9:34 A M MANAGER UTILITY Height 167.6 cm (5' 6 ) 08/30/2024 9:34 AM MANAGER UTILITY Body Mass Index 25.08 08/30/2024 9:34 AM MANAGER UTILITY Plan of Treatment Upcoming Encounters Date Type Department Care Team (Late st Contact Info) Description 05/30/2025 8:20 AM CDT Office Visit [facility] - [place] [address] [address] [place], [place] [id number] Bret Fraser MD [address] [place] [address] [address] [place], [place] [id number] Health Maintenance Due Date Last Done Comments Cervical Cancer Screening Pap Smear (Age 30 to 64) Every 3 Years 1965 COVID-19 Vaccine ( season) 2024 03/15/2022, 08/27/2021, 01/30/2021, Additional history exists PHQ-2 (Physician Riva) 10/23/2024 05/31/2024 Cervical Cancer Screening Pap with HPV Testing (Age 30 to 64) Every 5 Years 02/10/2025 02/11/2020 Cervical Cancer Screening with HPV 02/10/2025 Annual Physical 05/31/2025 05/31/2024, 04/2023, 05/31/2022 Colorectal Cancer Screening Colonoscopy (10 Years) 05/18/2031 05/18/2021 DTaP, Tdap and Td Vaccines (2 - Td or Tdap) 10/31/2032 10/31/2022, 02/01/2016 Zoster Vaccines Completed 04/22/2022, 02/07/2022 Hepatitis C Completed 05/31/2022 Influenza Adult Completed 08/30/2024, 07/23, 10/06/2021, Additional history exists Meningococcal B Vaccine Aged Out No l onger eligible based on patient's age to complete this topic Meningococcal Vaccine Aged Out No marty trisha eligible based on patient's age to complete this topic Pneumococcal Vaccine: Pediatrics (0 to 5 Years) and At-Risk Patients (6 to 64 Years) Aged Out No longer eligible based on patient's age to complete this topic RSV Immunizations Under 20 Months Aged Out No longer eligible based on patient's age to complete this topic Procedures Procedure Name Priority Date/Time Associated Diagnosis Comments HEPATITIS C ANTIBODY Routine 05/31/2022 11:01 AM CDT Annual physical exam Encounter for medical examination to establish care General medical exam Encounter for hepatitis C screening test for low risk patient COLONOSCOPY GENERIC (SCAN ORDER) 05/18/2021 OUTSIDE CYTOPATH CERV/VAG INTERPRET (PAP) 02/11/2020 from Last 3 Months or Most Recently Relevant to Health Maintenance Results * HEPATITIS C ANTIBODY (05/31/2022 11:01 AM CDT) HEPATITIS C AB NON-REACTI VE NON-REACT LARISSA 05/31/2022 8:16 PM CDT [facility] Comment: ANTIBODIES TO HCV NOT DETECTED. DOES NOT EXCLUDE THE POSSIBILITY OF EXPOSURE TO HCV. 05/31/2022 11:0 1 AM CDT us Bret Fraser MD LABORATORY Final Result [facility] [address] [place] [address], [place] [phone] [id number] * COLONOSCOPY GENERIC (05/18/2021) 05/18/2021 Narrative 05/18/2021 Ordered by an unspecified provider. us Documents Scanned SCANNING Final Result * PAP SMEAR WITH HPV (02/11/2020) 02/11/2020 Narrative 02/11/2020 Ordered by an unspecified provider. us Documents Scanned SCANNING Final Result from Last 3 Months or Most Recently Relevant to Health Maintenance Insurance [facility] Care Teams Pathology Lab Technician Relationship Specialty Start Date End Date Naate, Nueki, MD [address] [address] PCP - General INTERNAL MEDICINE 05/31/22
--- OUTSIDE RECORDS SUMMARY | 2024-12-13 09:11 | XMS_ITS | Encounter Summary ---
Author Organization [facility] Address [address] [place] [address] Care Team Providers Care Market Asset Protection Manager Name Role Phone Bret Fraser MD Primary Care Provider [phone] Encounter Details Date Type Department Care Team (Late st Contact Info) Description 03/31/2003 Outpatient Historical [facility] Maternal and Ground Floor S [facility] [address] [place] [address] Asad Vega MD NO ADDRESS ON FILE Social History Tobacco Use Types Packs/Day Years Used Date Smoking Tobacco: Never Assessed Comments Unknown Sex and Gender Information Value Date Recorded Sex Assigned at Not on file 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 Gender Identity Not on file Sexual Orientation Not on file documented as of this encounter Plan of Treatment Upcoming Encounters Date Type Department Care Team (Late st Contact Info) Description 06/04/2025 1:30 PM CDT Office Visit [facility] ONCOLOGY AND HEMATOLOGY-[place] [id number] [place] [address] Monica Albert MD [address] [place] [address] documented as of this encounter Visit Diagnoses Not on filedocumented in this encounter Care Teams Market Asset Protection Manager Relationship Specialty Start Date End Date Bret Fraser MD [address] [place] [address] PCP - General Internal Medicine 05/28/24 documented as of this encounter
--- OUTSIDE RECORDS SUMMARY | 2024-12-13 09:11 | XMS_ITS | Encounter Summary ---
Author Organization [facility] Address [address] [place] [address] Care Team Providers Care Hop Farmer Name Role Phone Bret Fraser MD Primary Care Provider [phone] Encounter Details Date Type Department Care Team (Late st Contact Info) Description 02/12/2009 Outpatient Historical [facility], [address] Kady Jones MD [address] [place] [address] [place] [address] Malignant Neoplasm of Breast (Female), Unspecified Site (CMS/HCC) Social History Tobacco Use Types Packs/Day Years Used Date Smoking Tobacco: Never Assessed Comments Unknown Sex and Gender Information Value Date Recorded Sex Assigned at Not on file Legal Sex Female 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 Gender Identity Not on file Sexual Orientation Not on file documented as of this encounter Plan of Treatment Upcoming Encounters Date Type Department Care Team (Late st Contact Info) Description 06/04/2025 1:30 PM CDT Office Visit [facility] ONCOLOGY AND HEMATOLOGY[address] [address] Monica Albert MD [address] [place] [address] documented as of this encounter Procedures Procedure Name Priority Date/Time Associated Diagnosis Comments CANCER ANTIGEN 27-29 Routine 02/12/2009 8:37 PM CDT COMPREHENSIVE METABOLIC PANEL Routine 02/12/2009 8:37 PM CDT documented in this encounter Results * CANCER ANTIGEN 27-29 (02/12/2009 8:37 PM CDT) Pathologist [facility] CA 27-29 16 <38 U/mL [facility] Comment: THIS TEST WAS PERFORMED USING THE SIEMENS (XipLink) CHEMILUMINESCENT METHOD. VALUES OBTAINED FROM DIFFERENT ASSAY METHODS CANNOT BE USED INTERCHANGEABLY. CA27.29 LEVELS, REGARDLESS OF VALUE, SHOULD NOT BE INTERPRETED ABSOLUTE EVIDENCE OF THE PRESENCE OR ABSENCE OF DISEASE. Lab test performed by: [employer] [address] [place] [address] JOSEPH CH MDThibecky test was performed using the NERITES/Damaso CA 27.29 Assay. Blood specimen (specimen) 02/12/2009 8:37 PM CDT 02/12/2009 8:47 PM CDT us Kady Jones MD CHEMISTRY ORDERABLES COM Fi nal Result INTERFACE SYSTEM Refer to clinic/hospital department [facility] CLIA# [id number] [address] [facility] [place] [address] * (ABNORMAL) COMPREHENSIVE METABOLIC PANEL (02/12/2009 8:37 PM CDT) Pathologist [facility] BUN 17 6 - 20 mg/dL [facility] CALCIUM 9.5 8.6 - 10.2 mg/dL [facility] CHLORIDE 103 96 - 108 mmol/L [facility] ALBUMIN 4.4 3.4 - 4.8 g/dL [facility] CREATININE 0.75 0.51 - 0.95 mg/dL [facility] SODIUM 138 135 - 145 mmol/L [facility] ALT 84(H) 0 - 31 U/L [facility] ALKALINE PHOSPHATASE 56 35 - 104 U/L [facility] BILIRUBIN TOTAL 0.2 0.2 - 1.0 mg/dL [facility] CO2 27 22 - 30 mmol/L [facility] TOTAL PROTEIN 7.0 6.3 - 8.6 g/dL [facility] POTASSIUM 4.5 3.5 - 4.9 mmol/L [facility] GLUCOSE 88 65 - 99 mg/dL [facility] AST 50(H) 12 - 32 U/L [facility] GFR, >60 >=60 mL/min/1.7 sq meter [facility] GFR >60 >=60 mL/min/1.7 sq meter [facility] Comment: Modification of Diet in Renal Disease (MDRD) study formula. Estimated GFR rate interpretative information for both Americans and non- Americans is available on the [facility] Intranet at: [email or web address] Select: Lab Policies and Procedures Select: Reference Ranges - GFR Blood specimen (specimen) 02/12/2009 8:37 PM CDT 02/12/2009 8:37 PM CDT Kady Jones MD CHEMISTRY ORDERABLES Edited INTERFACE SYSTEM Refer to clinic/hospital department [facility] CLIA# [id number] [address] [place] [address] documented in this encounter Visit Diagnoses Diagnosis Malignant neoplasm of breast (female), unspecified site (CMS/HCC) Malignant neoplasm of breast (female), unspecified site documented in this encounter Care Teams Hop Farmer Relationship Specialty Start Date End Date Bret Fraser MD [address] [place] [address] PCP - General Internal Medicine 05/28/24 documented as of this encounter
--- OUTSIDE RECORDS SUMMARY | 2024-12-13 09:11 | XMS_ITS | Encounter Summary ---
Author Organization [facility] Address [address] [place] [address] Care Team Providers Care Parimutuel Ticket Cashier Name Role Phone Bret Fraser MD Primary Care Provider [phone] Encounter Details Date Type Department Care Team (Late st Contact Info) Description 05/29/2009 Outpatient Historical [facility], [address] Kady Jones MD [address] [place] [address] [place] [address] Malignant Neoplasm of Breast (Female), Unspecified Site (CMS/HCC) Social History Tobacco Use Types Packs/Day Years Used Date Smoking Tobacco: Never Alcohol Use Standard Drinks/Week Comments Yes 0 (1 standard drink = 0.6 oz pur e alcohol) rare Comments No Sex and Gender Information Value Date Recorded Sex Assigned at Not on file Legal Sex Female 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 Gender Identity Not on file Sexual Orientation Not on file documented as of this encounter Plan of Treatment Upcoming Encounters Date Type Department Care Team (Late st Contact Info) Description 06/04/2025 1:30 PM CDT Office Visit [facility] ON[facility] [address] [place] [address] Monica Albert MD [address] [place] [address] documented as of this encounter Visit Diagnoses Diagnosis Malignant neoplasm of breast (female), unspecified site (CMS/HCC) Malignant neoplasm of breast (female), unspecified site documented in this encounter Care Teams Parimutuel Ticket Cashier Relationship Specialty Start Date End Date Bret Fraser MD [address] [place] [address] PCP - General Internal Medicine 05/28/24 documented as of this encounter
--- OUTSIDE RECORDS SUMMARY | 2024-12-13 09:11 | XMS_ITS | Encounter Summary ---
Author Organization [facility] Address [address] [place] [address] Care Team Providers Care Ferryboat Pilot Name Role Phone Bret Fraser MD Primary Care Provider [phone] Encounter Details Date Type Department Care Team (Late st Contact Info) Description 04/17/2009 Outpatient Historical [facility], [address] Kady Jones MD [address] [place] [address] [place] [address] Malignant Neoplasm of Breast (Female), Unspecified Site (CMS/HCC) Social History Tobacco Use Types Packs/Day Years Used Date Smoking Tobacco: Never Assessed Comments No Sex and Gender Information Value Date Recorded Sex Assigned at Not on file 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 Gender Identity Not on file Sexual Orientation Not on file documented as of this encounter Plan of Treatment Upcoming Encounters Date Type Department Care Team (Late st Contact Info) Description 06/04/2025 1:30 PM CDT Office Visit [facility] ONCOLOGY AND HEMATOLOGY[address] [address] Monica Albert MD [address] [place] [address] documented as of this encounter Visit Diagnoses Diagnosis Malignant neoplasm of breast (female), unspecified site (CMS/HCC) Malignant neoplasm of breast (female), unspecified site documented in this encounter Care Teams Ferryboat Pilot Relationship Specialty Start Date End Date Bret Fraser MD [address] [place] [address] PCP - General Internal Medicine 05/28/24 documented as of this encounter
--- OUTSIDE RECORDS SUMMARY | 2024-12-13 09:11 | XMS_ITS | Continuity of Care Document ---
Author Organization [facility] Address [address] [place] [address] [place] [address] Phone Care Team Providers Care Distillery Supervisor Name Role Phone Sabino Barba Unavailable Unavailable Procedures Procedure Date Eye Exam, New Patient Advance Directives Directive Yes / No Effective Date File Name No Information Encounters Encounter Description Practice Location Reason(s) For Visit Diagnoses Date Provider Providers Copied on Encounter [facility], [address] [place] [address] [address], [place], [place], [id number], [place] tel:[phone] [facility] No Information Jameson Gallo. [address] [place], [place], [place], [place]. tel:[phone] Referring Provider: Tacos Ochoa MD, [address], [place]. tel:[phone] Family History Family Member Type Diagnosis Age At Onset No Information Payers Payer name Insurance type Covered libertarian ID Gisel vazquez(s) [facility] CI [id number] Social History Type Description Quantity Date Captured [...]
--- OUTSIDE RECORDS SUMMARY | 2024-12-13 09:12 | XMS_ITS | Referral Summary ---
Author Organization [facility] Address [address] [place] [address] Care Team Providers Care School Of Nursing Director Name Role Phone Tacos Ochoa MD Primary Care Provider [phone] Source Comments [facility],non[facility] Affiliates and Associated Physician Practices is amultiple site organization consisting of ambulatory clinics and hospital sitesin [place], [place], [place] and [place]. This disclosure is being madepursuant to the Care Everywhere program and may not contain all information available regarding this patient. Last updated 18.[facility] Social History Tobacco Use Types Packs/Day Years Used Date Smoking Tobacco: Never Assessed Sex and Gender Information Value Date Recorded Sex Assigned at Not on file Gender Identity Not on file Sexual Orientation Not on file Plan of Treatment Not on file Care Teams School Of Nursing Director Relationship Specialty Start Date End Date Tacos Ochoa MD [address] [address] PCP - General 01/03/22
--- OUTSIDE RECORDS SUMMARY | 2024-12-13 09:12 | XMS_ITS | Clinical Summary ---
Author Organization [facility] Address [address] [place] [address] Care Team Providers Care Office Services Associate Name Role Phone Unavailable Primary Care Provider Unavailabl e Social History Tobacco Use Types Packs/Day Years Used Date Smoking Tobacco: Never Assessed Comments Unknown Sex and Gender Information Value Date Recorded Sex Assigned at Not on file Legal Sex Female 12:48 PM PORTRAIT ARTIST Gender Identity Not on file Sexual Orientation Not on file Plan of Treatment Health Maintenance Due Date Last Done Comments Hepatitis C Virus (HCV) Screening 1965 TdaP Immunization 1965 Hepatitis B Immunization (1 of 3 - 19+ 3-dose series) 1984 Pap Smear 1986 Cervical Cancer Screening (CCS) 1995 HPV/Cotest 1995 Colonoscopy 2010 Colorectal Cancer Screening 2010 Cologuard 2015 Immunochemical Fecal Occult Blood 2015 Mammogram 2015 Pneumococcal Immunization (5 0+ years) (1 of 1 - PCV) 2015 Zoster Immunization (1 of 2) 2015 Influenza Immunization (#1) 2024 09/02/2015 SARS-COV-2 Immunization ( season) 2024 Respiratory Syncytial Virus (RSV) Immunization (Adult) (1 - 1-dose 75+ series) 2040 DTaP/Tdap/Td Immunization Discontinued 02/01/2016 Meningococcal Immunization (ACWY) Aged Out No longer eligible based on patient's age to complete this topic Pneumococcal Immunization Combined Aged Out No longer eligible based on patient's age to complete this topic Rotavirus Immunization Aged Out No lo nger eligible based on patient's age to complete this topic
--- OUTSIDE RECORDS SUMMARY | 2024-12-13 09:12 | XMS_ITS | Encounter Summary ---
Author Organization [facility] Address [address] [place] [address] Care Team Providers Care Meat Apprentice Name Role Phone Bret Fraser MD Primary Care Provider [phone] Encounter Details Date Type Department Care Team (Late st Contact Info) Description 02/27/2003 Outpatient Historical [facility] Maternal and Ground Floor S [facility] [address] [place] [address] Naida Wall MD [address] [place] [address] Social History Tobacco Use Types Packs/Day Years Used Date Smoking Tobacco: Never Assessed Comments Unknown Sex and Gender Information Value Date Recorded Sex Assigned at Not on file 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 [address] [place] [address] Monica Albert MD [address] [place] [address] documented as of this encounter Visit Diagnoses Not on filedocumented in this encounter Care Teams Meat Apprentice Relationship Specialty Start Date End Date Bret Fraser MD [address] [place] [address] PCP - General Internal Medicine 05/28/24 documented as of this encounter
--- OUTSIDE RECORDS SUMMARY | 2024-12-13 09:12 | XMS_ITS | Patient Health Summary ---
Author Organization [facility] Address [address] [facility] [place] [address] Care Team Providers Care Motion Designer Name Role Phone Tacos Ochoa MD Primary Care Provider Note from [facility],non-owned Affiliates and Associated Physician Practices is amultiple site organization consisting of ambulatory clinics and hospital sitesin [place], [place]. This disclosure is being madepursuant to the Care Everywhere program and may not contain all information available regarding this patient. Last updated 18.[facility] Social History Tobacco Use Types Packs/Day Years Used Date Smoking Tobacco: Never Assessed Sex and Gender Information Value Date Recorded Sex Assigned at Not on file Gender Identity Not on file Sexual Orientation Not on file Care Teams Motion Designer Relationship Specialty Start Date End Date Tacos Ochoa MD [address] [facility] [address] [place] [address] PCP - General 01/03/22
--- OUTSIDE RECORDS SUMMARY | 2024-12-13 09:12 | XMS_ITS | Clinical Summary ---
Author Organization [facility] al Address [address] [place] [address] Care Team Providers Care Shook Splicer Name Role Phone Tacos Ochoa MD Primary Care Provider [phone] Allergies Active Allergy Reactions Criticality Noted Date Comments Adhesive Tape-Silicones Rash Medium Pt states she no longer has this reaction to adhesive tape. Medications cholecalcifero l (VITAMIN D-3) 2000 unit capsule Take 4,000 Int'l Units by mouth Active estradioL (VAGIFEM) 10 mcg tablet 1 Active metroNIDAZOLE (METROGEL) 0.75 % vaginal gel metronidazole 0.75 % vaginal gel INSERT 1 APPLICATORFUL VAGINALLY AT BEDTIME FOR 5 NIGHTS Active ALPRAZolam (XANAX) 0.25 mg tablet Take 1 tablet (0.25 mg total) by mouth nightly as needed for anxiety 30 tablet 2 Active escitalopram (LEXAPRO) 10 mg tablet TAKE 1 TABLET DAILY (NEED TO SCHEDULE AN APPOINTMENT) 30 tablet 3 Active Active Problems Problem Noted Date Diagnosed Date Duodenitis 08/20/2021 Acute urinary tract infection 08/20/2021 Cat bite 08/20/2021 Cough 08/20/2021 Cyst of ovary 08/20/2021 Postmenopausal bleeding 08/20/2021 Upper abdominal pain 08/20/2021 Vaginal discharge 08/20/2021 History of colon polyps 03/04/2021 Overview (03/04/2021): Added automatically from request for surgery [id number] Breast cancer 04/17/2009 Overview (08/20/2021): 08/13/08 LEFT breast cancer IDC T1c Ni+ M0 ER 21% WI- HER2 4.4 BRCA 1/2 negative 08/27/08 LEFT LUMP and slnd 09/26/08-11/27/08 AC x 4 and Taxotere and Herceptin until November 2009 02/26/09 b/l mastectomy 04/03/09 TMX Last Assessment & Plan: 5 years out On TMX 4 years Taking vit D monthly - due now Green smoothies now. FH: migraines 04/17/2009 Immunizations Immunization Administration Dates Next Due Influenza, Quadrivalent, Spl it, Preservative Free, Intramuscular 09/02/2015 Influenza, Trivalent, IM (MDV) 08/27/2014 Moderna SARS-CoV-2 Monovalent Vaccination (12+ Y RS) 01/30/2021,01/02/2021 TD Preservative Free 02/01/2016 Surgical History Surgery Date Site/Laterality Comments MASTECTOMY 10/23/2008 - 10/22/2009 Bilateral COLONOSCOPY CYST REMOVAL BREAST RECONSTRUCTION 02/20/2009 - 03/22/2009 dr[facility] Medical History Medical History Date Comments Anxiety PONV (postoperative nausea and vomiting) Colon polyp Breast cancer (HCC) Hypercholesteremia Urinary tract infection Family History Medical History Relation Name Comments Diabetes Father Heart disease Father Hypertension Father Prostate cancer Father Cervical cancer Mother Hypertension Mother Scoliosis Sister Relation Name Status Comments Father Mother Sister Social History Tobacco Use Types Packs/Day Years Used Date Smoking Tobacco: Never Smokeless Tobacco: Never AUDIT-C Answer Date Recorded Q1: How often do you have a drink containing alc ohol? Monthly or less 08/20/2021 Average Number of Drinks Not on file 021 Frequency of Binge Drinking Not on file 07/24 Personal Safety Answer Date Recorded Getting School Help Needed Not on file 01/06 Comments No Sex and Gender Information Value Date Recorded Sex Assigned at Not on file Legal Sex Female 2:51 AM DRAWING BOX TENDER Gender Identity Not on file Sexual Orientation Not on file Obstetrics History Last Filed Vital Signs Vital Sign Reading Time Taken Comments Blood Pressure 134/75 09/28/2021 12:32 PM DRAWING BOX TENDER Pulse 82 09/28/2021 12:32 PM DRAWING BOX TENDER Temperature 36.9 C (98.4 F) 08/16/2021 9:32 AM CDT Respiratory Rate 16 08/16/2021 9:32 AM CDT Oxygen Saturation 98% 08/16/2021 9:32 AM CDT Inhaled Oxygen Concentration - - Weight 72.6 kg (160 lb) 09/28/2021 12:32 PM DRAWING BOX TENDER Height 167.6 cm (5' 6 ) 09/28/2021 12:32 PM DRAWING BOX TENDER Body Mass Index 25.82 09/28/2021 12:32 PM DRAWING BOX TENDER Plan of Treatment Scheduled Procedures Name Priority Associated Diagnoses Date/Ti me COLONOSCOPY Encounter for screening colonoscopy Health Maintenance Due Date Last Done Comments Cervical Cancer Screening 1965 Depression Screening 1965 Hepatitis C Screening 1965 Hepatitis B Screening 1983 Zoster Vaccine (1 of 2) 2015 DTaP/Tdap/Td Vaccine (1 - Tdap) 02/02/2016 02/01/2016 Regular Well Visit/Exam 18-64 09/28/2022 09/28/2021 Covid-19 Vaccine (3 - season) 2024 01/30/2021, 01/02/2021 Influenza Vaccine (#1) 2024 5, 08/27/2014 Colon Cancer Screening-Colonoscopy 05/18/2031 05/18/2021 Colon Cancer Screening-CT Colonography Discontinued 05/18/2021 Colon Cancer Screening-DNA Stool Discontinued 05/18/2021 Colon Cancer Screening-FIT Discontinued 05/18/2021 Colon Cancer Screening-Sigmoidoscopy Discontinued 05/18/2021 Breast Cancer Screening-Mammogram Discontinued Pneumococcal vaccine <65 Aged Out No longer eligible based on patient's age to complete this topic Procedures Procedure Name Priority Date/Time Associated Diagnosis Comments COLONOSCOPY 05/18/2021 3:05 PM CDT from Last 3 Months or Most Recently Relevant to Health Maintenance Results * COLONOSCOPY (05/18/2021 3:05 PM CDT) Anatomical Region Laterality Modality Other Narrative Procedure Note Pietro Peguero MD - 05/18/2021 3:05 PM CDT [facility] Patient Name: Tiffany Pike Procedure Date: 05/18/2021 3:05 PM Date of : 1965 Admit Type: Outpatient Age: 55 Gender: Female Attending MD: Pietro Peguero M.D. Room: [facility] 8 Note Status: Finalized Procedure: Colonoscopy Indications: High risk colon cancer surveillance: Personalhistory of colonic polyps, Last colonoscopy 5 years ago Referring MD: Tacos Ochoa M.D. Providers: Pietro Peguero M.D. Medicines: Monitored Anesthesia Care Complications: No immediate complications. Estimated Blood Loss: Estimated blood loss was minimal. Procedure: Pre-Anesthesia Assessment: - Prior to the procedure, a History and Physicalwas performed, and patient medications, allergies and sensitivities were reviewed. The patient'stolerance of previous anesthesia was reviewed. - The risks and benefits of the procedure and the sedation options and risks were discussed with the patient. All questions were answered and informed consent was obtained. - Immediately prior to administration ofmedications, the patient was re-assessed for adequacy to receive sedatives. The benefits, risks and alternatives of theprocedure and sedation were discussed and informed consentwas obtained. All questions were answered. Please referto the signed informed consent document in the medical record. The scope was passed under direct vision.The CF HQ [id number] endoscope was introducedthrough the anus and advanced to the terminal ileum. The colonoscopy was performed without difficulty. The patient tolerated the procedure well. The qualityof the bowel preparation was evaluated using the BBPS (Henrietta Bowel Preparation Scale) with scores of:Right Colon = 3, Transverse Colon = 3 and Left Colon = 3 (entire mucosa seen well with no residual staining, small fragments of stool or opaque liquid). Thetotal BBPS score equals 9. The bowel preparation used was Miralax and Magnesium Citrate. The quality of the bowel preparation was good. Findings: The terminal ileum appeared normal. Two sessile polyps were found in the sigmoid colon and descendingcolon. The polyps were 3 mm in size. These polyps were removed with a cold biopsy forceps. Resection and retrieval were complete. A few small-mouthed diverticula were found in the sigmoid colon. Internal hemorrhoids were found. The hemorrhoids were small and GradeI (internal hemorrhoids that do not prolapse). Impression: - The examined portion of the ileum was normal. - Two 3 mm polyps in the sigmoid colon and in the descending colon, removed with a cold biopsyforceps. Resected and retrieved. - Diverticulosis. - Internal hemorrhoids. Recommendation: - Await pathology results. - Repeat colonoscopy in 5 years for surveillance. - Contact Information: During normal business hours - [facility] [place] [facility]: [phone] After hours, evening, nights, weekends and holidays- Please call the hospital felting machine operator at and ask for the GI fellow phone counselor. Attending Participation: I personally performed the entire procedure. Electronically signed by Pietro Peguero MD Pietro Peguero M.D. 05/18/2021 3:47:59 PM . Number of Addenda: 0 Note Initiated On: 05/18/2021 3:05 PM Recognized by the [employer] for promoting quality in endoscopy Pietro Peguero MD ENDOSCOPY PROCEDURES Final Result from Last 3 Months or Most Recently Relevant to Health Maintenance Insurance [facility] PLUS [facility] PLUS [facility] PLUS [place] [id number] [facility] PLUS [place] [id number] Care Teams Shook Splicer Relationship Specialty Start Date End Date Tacos Ochoa MD [address] [facility] [address] [place] [address] PCP - General 06/24/20
--- OUTSIDE RECORDS SUMMARY | 2024-12-13 09:12 | XMS_ITS | Encounter Summary ---
Author Organization [facility] Address [address] [place] [id number] Care Team Providers Care Birthing Nurse Name Role Phone Bret Fraser MD Primary Care Provider [phone] Encounter Details Date Type Department Care Team (Late st Contact Info) Description 10/11/2023 MyChart Message Enc [address] [address] Bret Fraser MD [address] [place] [address] Cruise Social History Tobacco Use Types Packs/Day Years Used Date Smoking Tobacco: Never Smokeless Tobacco: Never Comments:counseled by Dr Shari shoemaker Alcohol Use Standard Drinks/Week Comments Not Currently 0 (1 standard drink = 0.6 oz pur e alcohol) PHQ-2 Answer Date Recorded Patient Health Questionnaire-2 Score 0 05/29/2023 Comments No Sex and Gender Information Value Date Recorded Sex Assigned at Not on file Legal Sex Female 7:36 PM CDT Gender Identity Not on file Sexual Orientation Not on file documented as of this encounter Plan of Treatment Upcoming Encounters Date Type Department Care Team (Late st Contact Info) Description 05/30/2025 8:20 AM CDT Office Visit [facility] [address] [place] [address] Bret Fraser MD [address] [address] documented as of this encounter Visit Diagnoses Not on filedocumented in this encounter Care Teams Birthing Nurse Relationship Specialty Start Date End Date Bret Fraser MD [address] [address] PCP - General INTERNAL MEDICINE 05/31/22 documented as of this encounter
--- OUTSIDE RECORDS SUMMARY | 2024-12-13 09:12 | XMS_ITS | Encounter Summary ---
Author Organization [facility] Address [address] [place] [address] Care Team Providers Care Auto Haulaway Driver Name Role Phone Bret Fraser MD Primary Care Provider [phone] Encounter Details Date Type Department Care Team (Late st Contact Info) Description 12/12/2002 Outpatient Historical [facility] Maternal and Ground Floor S [facility] [address] [place] [address] Palmer Argueta MD [id number] [place] [address] Social History Tobacco Use Types Packs/Day Years Used Date Smoking Tobacco: Never Assessed Comments Unknown Sex and Gender Information Value Date Recorded Sex Assigned at Not on file 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 Gender Identity Not on file Sexual Orientation Not on file documented as of this encounter Plan of Treatment Upcoming Encounters Date Type Department Care Team (Late st Contact Info) Description 06/04/2025 1:30 PM CDT Office Visit [facility] [address] [place] [address] Monica Albert MD [address] [place] [address] documented as of this encounter Visit Diagnoses Not on filedocumented in this encounter Care Teams Auto Haulaway Driver Relationship Specialty Start Date End Date Bret Fraser MD [address] [place] [address] PCP - General Internal Medicine 05/28/24 documented as of this encounter
--- OUTSIDE RECORDS SUMMARY | 2024-12-13 09:12 | XMS_ITS | Encounter Summary ---
Author Organization [facility] Address [address] [place] [address] Care Team Providers Care Weigher And Crusher Name Role Phone Bret Fraser MD Primary Care Provider Encounter Details Date Type Department Care Team (Latest Contact Info) Description 12/12/2002 Outpatient Historical [facility] Sandeep Woo MD [address] [place] [address] ELDER PRIMIGRAVID-ANTEPART UM (Primary Dx) Social History Tobacco Use Types Packs/Day Years Used Date Smoking Tobacco: Never Assessed Comments Unknown Sex and Gender Information Value Date Recorded Sex Assigned at Not on file Legal Sex Female 5:01 AM CASE ADVOCATE Gender Identity Not on file Sexual Orientation Not on file documented as of this encounter Plan of Treatment Upcoming Encounters Date Type Department Care Team (Late st Contact Info) Description 06/04/2025 1:30 PM CDT Office Visit [facility] ON[facility] AND [facility]ATOLOGY-[address] [address] Monica Albert MD [address] [place] [address] documented as of this encounter Procedures Procedure Name Priority Date/Time Associated Diagnosis Comments POC GLUCOSE Routine 12/13/2005 7:05 AM CASE ADVOCATE documented in this encounter Results * POC GLUCOSE (12/13/2005 7:05 AM CASE ADVOCATE) GLUCOSE POC Invalid Result 19 - 109 INTERFACE SYSTEM Comment:incorrect fin#, pt c redited 12/13/2005 7:05 AM CASE ADVOCATE us Sandeep Woo MD POINT OF CARE TESTING Final Re sult INTERFACE SYSTEM Refer to clinic/hospital department documented in this encounter Visit Diagnoses Diagnosis Elderly primigravida, antepartum- Primary documented in this encounter Care Teams Weigher And Crusher Relationship Specialty Start Date End Date Bret Fraser MD [address] [place] [address] PCP - General Internal Medicine 05/28/24 documented as of this encounter
--- OUTSIDE RECORDS SUMMARY | 2024-12-13 09:12 | XMS_ITS | Clinical Summary ---
Author Organization [facility] Address [address] [place] [address] Care Team Providers Care Blueprint Trimmer Name Role Phone Bret Fraser MD Primary Care Provider [phone] Allergies Active Allergy Reactions Criticality Noted Date Comments Adhesive Tape Unknown 04/17/2009 Medications estradioL (VAGIFEM) 10 mcg tablet Insert 10 mcg vaginally. Active escitalopram oxalate (LEXAPRO) 10 mg tablet TK 1 T PO D 3 9 Active ALPRAZolam (XANAX) 0.25 mg tabletIndicatio ns:Malignant neoplasm of nipple of left breast in female, estrogen receptor positive (CMS/HCC) Take 1 Tablet (0.25 mg) by mouth nightly as needed for Anxiety. 30 Tablet 3 Active oxyBUTYnin (DITROPAN XL) 5 mg Extended Release 24 hour tablet Take 5 mg by mouth daily. 3 Active denosumab (PROLIA) 60 mg/mL Syringe Inject 60 mg by subcutaneous injection one time only. Active Active Problems Patient Care Coordination No te Formatting of this note migh t be different from the original. Primary Care: No primary provider on file. Referring Provider: Sandeep Woo [address] [place] [address] Other: VENECIA Andrew Problem Noted Date Diagnosed Date Breast cancer 04/17/2009 Overview (06/11/2014): 08/13/08 LEFT breast cancer IDC T1c Ni+ M0 ER 21% [place]- HER2 4.4 BRCA 1/2 negative 08/27/08 LEFT LUMP and slnd 09/26/08-11/27/08 AC x 4 and Taxotere and Herceptin until November 2009 02/26/09 b/l mastectomy 04/03/09 TMX Assessment & Plan (05/28/2013 11:40 AM CDT): 5 years out On TMX 4 years Taking vit D monthly - due now Green smoothies now. 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 - wanted xanax - gave 60 Saturday June 18, 2011 On AI until 2013 ROV 6 months Assessment & Plan (03/14/2011 4:07 PM CDT): 2 1/2 yr out Ovarian cyst - u/s next week 2 weeks ago abd pain; on Nexium, crampy after meals b/l abd U/s RUQ today in [place] On TMX - will stop now and give AI LMP February 2010; hot flashes VIt D 44 in December - recheck Didn't get brain MRI Discussed AI - FEMARA script B/l solitary inguinal LNs; less then 1cm - await pelivc u/s PET if anything is abnormal ROV 3 momths Assessment & Plan (09/09/2010 4:22 PM DIGESTER OPERATOR HELPER): 2 yrs out On TMX Port out [place] LMP spotting in February; ultrasound negative Sep 2008 otherwise TMX until March then FEMARA if no periods 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 On herceptin until Nov. Tmx ok. ECHo 55% in April - needs repeat PLAN: ECHO in 4 weeks (she needs thrid week off) ROV in 7 weeks Assessment & Plan (05/29/2009 1:12 PM CDT): Doing well with Herceptin and TMX Uses Xanax at night to sleep. PLAN: Herceptin unti lFeb 2009 TMX until definitely postmenopausal. ROV 6 weeks. Assessment & Plan (04/17/2009 9:45 AM CDT): Tiffany comes in today for f/u of her T1cN0(40cells) Left sided breast cancer. She has been on HERCEPTIN since Nov 2008, and started TMX in March. She has no complaints except for some mild hot flashes. We plan to continue Herceptin until NOV 2009, and TMX for at least 2 years and then change her over to an AI. She needs an ECHO in 3 weeks and I will see her in 6 weeks. FH: migraines 04/17/2009 Encounters Date Type Department Care Team Description 12/11/2024 External Device Data STL ABSTRACTION Provider, Abstract 12/10/2024 External Device Data STL ABSTRACTION Provider, Abstract 11/26/2024 External Device Data STL ABSTRACTION Provider, Abstract 11/14/2024 External Device Data STL ABSTRACTION Provider, Abstract 11/13/2024 External Device Data STL ABSTRACTION Provider, Abstract 11/12/2024 External Device Data STL ABSTRACTION Provider, Abstract 11/05/2024 External Device Data STL ABSTRACTION Provider, Abstract 10/29/2024 External Device Data STL ABSTRACTION Provider, Abstract from Last 3 Months Family History Medical History Relation Name Comments Heart Disease Father Cancer Maternal Grandmother cervica l Cancer Mother cervical Pancreatic Cancer Paternal Cousin father' s first cousin;age 60s Healthy Son Relation Name Status Comments Father Alive Maternal Grandmother Mother Alive Paternal Cousin Son Alive Social History Tobacco Use Types Packs/Day Years Used Date Smoking Tobacco: Never Smokeless Tobacco: Never Tobacco Cessation:Counseling Given: Not Answered Alcohol Use Standard Drinks/Week Comments Yes 0 (1 standard drink = 0.6 oz pur e alcohol) rare Comments No Sex and Gender Information Value Date Recorded Sex Assigned at Not on file Legal Sex Female 5:01 AM DIGESTER OPERATOR HELPER Gender Identity Not on file Sexual Orientation Not on file Occupation Industry Job Start Date Job End Date Not on file Not on file Not on file Not on file Last Filed Vital Signs Vital Sign Reading Time Taken Comments Blood Pressure 130/76 05/28/2024 1:22 PM CDT Pulse 75 05/28/2024 1:22 PM CDT Temperature 36.7 C (98.1 F) 05/28/2024 1:22 PM CDT Respiratory Rate 16 05/28/2024 1:22 PM CDT Oxygen Saturation 97% 05/28/2024 1:22 PM CDT Inhaled Oxygen Concentration - - Weight 70.9 kg (156 lb 4 oz) 05/28/2024 1:22 PM CDT Height 167.6 cm (5' 6 ) 05/28/2024 1:22 PM CDT Body Mass Index 25.22 05/28/2024 1:22 PM CDT Plan of Treatment Upcoming Encounters Date Type Department Care Team (Late st Contact Info) Description 06/04/2025 1:30 PM CDT Office Visit [facility] ON[facility] HEMATOLOGY-[address] [address] Monica Albert MD [address] [place] [address] Health Maintenance Due Date Last Done Comments Pre-Diabetes and Diabetes Screening 1965 HEPATITIS B VACCINES (1 of 3 - 19+ 3-dose series) 1984 CERVICAL CANCER SCREENING 1995 BREAST CANCER SCREENING 2005 FIT-DNA Q 3 years 2010 FIT/FOBT Q 1 year 2010 Flex Sig/CT Colonography Q 5 years 2010 INFLUENZA VACCINE (#1) 2024 09/02/2015, 2013 COVID-19 Vaccine (2023-2 5 season) 2024 03/15/2022, 08/27/2021, 01/30/2021, Additional history exists COLORECTAL SCREENING 05/18/2031 05/18/2021, 05/18/2021, 05/18/2021 Colorectal Cancer Screening 05/18/2031 DTAP/TDAP/TD VACCINES (2 - T d or Tdap) 10/31/2032 10/31/2022, 02/01/2016 ZOSTER VACCINE Completed 04/22/2022, 02/07/2022 Insurance [facility] [employer] [id number] Care Teams Blueprint Trimmer Relationship Specialty Start Date End Date Bret Fraser MD [address] [place], [place] [id number] PCP - General Internal Medicine 05/28/24
--- OUTSIDE RECORDS SUMMARY | 2024-12-13 09:12 | XMS_ITS | Referral Summary ---
Author Organization [facility] Address [address] [place] [address] Care Team Providers Care Biomedical Equipment Tech Name Role Phone Tacos Ochoa MD Primary Care Provider [phone] Allergies Active Allergy Reactions Criticality Noted Date [...] (03/04/2021): Added automatically from request for surgery [id number] Breast cancer 04/17/2009 Overview (08/20/2021): 08/13/08 LEFT breast cancer IDC T1c Ni+ M0 ER 21% CT- HER2 4.4 BRCA 1/2 negative 08/27/08 LEFT [...] Y RS) 01/30/2021,01/02/2021 TD Preservative Free 02/01/2016 Social History Tobacco Use Types Packs/Day Years [...] on file Legal Sex Female 2:51 AM SEISMOLOGY TECHNICAL OFFICER Gender Identity Not on file Sexual Orientation Not on file Last Filed Vital Signs Vital Sign Reading Time Taken Comments Blood Pressure 134/75 09/28/2021 12:32 PM SEISMOLOGY TECHNICAL OFFICER Pulse 82 09/28/2021 12:32 PM SEISMOLOGY TECHNICAL OFFICER Temperature 36.9 C (98.4 F) 08/16/2021 9:32 AM CDT Respiratory Rate 16 08/16/2021 9:32 AM CDT Oxygen Saturation 98% 08/16/2021 9:32 AM CDT Inhaled Oxygen Concentration - - Weight 72.6 kg (160 lb) 09/28/2021 12:32 PM SEISMOLOGY TECHNICAL OFFICER Height 167.6 cm (5' 6 ) 09/28/2021 12:32 PM SEISMOLOGY TECHNICAL OFFICER Body Mass Index 25.82 09/28/2021 12:32 PM SEISMOLOGY TECHNICAL OFFICER Plan of Treatment Scheduled Procedures Name Priority Associated Diagnoses Date/Ti me COLONOSCOPY Encounter for screening colonoscopy Procedures Procedure Name Priority Date/Time Associated Diagnosis [...] Female Attending MD: Pietro Peguero M.D. Room: [facility] ROOM 8 Note Status: Finalized Procedure: [...] passed under direct vision.The CF HQ [id number] endoscope was introducedthrough the anus and advanced to the terminal ileum. The colonoscopy was performed without difficulty. The patient tolerated the procedure well. The qualityof the bowel preparation was evaluated using the BBPS ([place] Bowel Preparation Scale) with scores of:Right Colon [...] During normal business hours - Please call theNurse Coordinator: [phone] After hours, evening, nights, weekends and holidays- Please call the hospital foam gun operator at and ask for the GI fellow reservations manager. Attending Participation: I personally performed the entire procedure. Electronically signed by Pietro Peguero MD Pietor Peguero M.D. 05/18/2021 3:47:59 PM . Number of Addenda: 0 Note Initiated On: 05/18/2021 3:05 PM Recognized by the [employer] for promoting quality in endoscopy Pietro Peguero MD ENDOSCOPY PROCEDURES Final Result from Last 3 Months or Most Recently Relevant to Health Maintenance Insurance [facility] PLUS [facility] PLUS [facility]ICE PLUS [facility] CHOICE PLUS Care Teams Biomedical Equipment Tech Relationship Specialty Start Date End Date Tacos Ochoa MD [address] [facility] [address] [place] [address] PCP - General 06/24/20
--- OUTSIDE RECORDS SUMMARY | 2024-12-13 09:12 | XMS_ITS | Encounter Summary ---
Author Organization [facility] Address [address] [place] [address] Care Team Providers Care Mobile Ui Designer Name Role Phone Bret Fraser MD Primary Care Provider [phone] Encounter Details Date Type Department Care Team (Late st Contact Info) Description 12/11/2023 MyChart Message Enc [address] [address] Bret Fraser MD [address] [place] [address] sinus infection Social History Tobacco Use Types Packs/Day Years Used Date Smoking Tobacco: Never Smokeless Tobacco: Never Comments:counseled by Dr Shari shoemaker Alcohol Use Standard Drinks/Week Comments Never 0 (1 standard drink = 0.6 oz pur e alcohol) PHQ-2 Answer Date Recorded Patient Health Questionnaire-2 Score 1 11/29/2023 Comments No Sex and Gender Information Value Date Recorded Sex Assigned at Not on file Legal Sex Female 7:36 PM CDT Gender Identity Not on file Sexual Orientation Not on file documented as of this encounter Plan of Treatment Upcoming Encounters Date Type Department Care Team (Late st Contact Info) Description 05/30/2025 8:20 AM CDT Office Visit [facility] Medical [facility] Multispecialty [address] [place] [address] Bret Fraser MD [address] [address] documented as of this encounter Visit Diagnoses Not on filedocumented in this encounter Additional Health Concerns Assessment Noted Time PHQ-9 Depression Total Score: 2 11/29/19 24 7:52 AM ACCOUNT ASSOCIATE documented as of this encounter Care Teams Mobile Ui Designer Relationship Specialty Start Date End Date Bret Fraser MD [address] [address] PCP - General INTERNAL MEDICINE 05/31/22 documented as of this encounter
--- OUTSIDE RECORDS SUMMARY | 2024-12-13 09:12 | XMS_ITS | Clinical Summary ---
Author Organization [facility] Address [address] [place] [address] Care Team Providers Care Power Shovel Operator Name Role Phone Tacos Ochoa MD Primary Care Provider [phone] Source Comments [facility],non-owned Affiliates and Associated Physician Practices is amultiple site organization consisting of ambulatory clinics and hospital sitesin [place], [place], [place] and [place]. This disclosure is being madepursuant to the Care Everywhere program and may not contain all information available regarding this patient. Last updated 18.[facility] Social History Tobacco Use Types Packs/Day Years Used Date Smoking Tobacco: Never Assessed Sex and Gender Information Value Date Recorded Sex Assigned at Not on file Gender Identity Not on file Sexual Orientation Not on file Plan of Treatment Health Maintenance Due Date Last Done Comments COLOGUARD (AGES 45-75) - COL ON CA SCREENING 1965 COLON MONITORING 1965 COLONOSCOPY - COLON CA SCREENING 1965 CT COLONOGRAPHY - COLON CA SCREENING 1965 Colorectal Cancer Screening 1965 FIT - COLON CA SCREENING 1965 FLEX SIG - COLON CA SCREENING 1965 LIPID TESTING 1965 MAMMOGRAM 1965 PAP SMEAR 1965 HIV SCREENING 1980 HEPATITIS C SCREENING 09/03/1983 DTAP/TDAP/TD VACCINES (1 - Tdap) 1984 HEPATITIS B VACCINE (1 of 3 - 19+ 3-dose series) 1984 PNEUMOCOCCAL VACCINE 50+ (1 of 1 - PCV) 2015 ZOSTER VACCINE (1 of 2) 2015 COVID-19 VACCINE (3 - 2023-2 5 season) 2024 01/30/2021, 01/02/2021 INFLUENZA VACCINE (#1) 2024 5, 08/27/2014 DEPRESSION SCREENING 10/23/2024 HIB VACCINE Aged Out No longer eligi ble based on patient's age to complete this topic HPV VACCINE Aged Out No longer eligi ble based on patient's age to complete this topic MENINGOCOCCAL (Group B) VACCINE Aged Out No longer eligible b ased on patient's age to complete this topic MENINGOCOCCAL VACCINE Aged Out No marty trisha eligible based on patient's age to complete this topic PNEUMOCOCCAL VACCINE Aged Out No long er eligible based on patient's age to complete this topic Care Teams Power Shovel Operator Relationship Specialty Start Date End Date Tacos Ochoa MD [address] [facility] [address] [place] [address] PCP - General 01/03/22
--- OUTSIDE RECORDS SUMMARY | 2024-12-13 09:12 | XMS_ITS ---
Author Organization [facility] Address [address] [place] [address] Care Team Providers Care Cook Starch Name Role Phone Bret Fraser MD Primary Care Provider [phone] Active Problems Patient Care Coordination No te Formatting of this note migh t be different from the original. Primary Care: No primary provider on file. Referring Provider: Sandeep Woo [address] [place] [address] Other: VENECIA Morales Problem Noted Date Diagnosed Date Breast cancer 04/17/2009 Overview (06/11/2014): 08/13/08 LEFT breast cancer IDC T1c Ni+ M0 ER 21% [place]- HER2 4.4 BRCA 1/2 negative 08/27/08 LEFT [...] On TMX 3 years No periods since chenar - will stay on TMX - estradiol PREmeno last year Estrace cream ROV 1 year Assessment & Plan (12/12/2011 2:13 PM QUARTER SECTION IRONER): 3 1/2 years out On TMX Left neck nodes - tiny - gone now HAs chronic - doesn't want scan ROV 6 months then yearly Assessment & Plan (06/13/2011 11:09 AM CDT): Will be 3 yrs out in Jul Has had spotting; still on TMX 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 - wanted xanax - gave 60 Saturday June 18, 2011 On AI until 2013 ROV 6 months Assessment & Plan (03/14/2011 4:07 PM CDT): 2 1/2 yr out Ovarian cyst - u/s next week 2 weeks ago abd pain; on Nexium, crampy after meals b/l abd U/s RUQ today in [place] On TMX - will stop now and give AI LMP February 2010; hot flashes VIt D 44 in December - recheck Didn't get brain MRI Discussed AI - FEMARA script B/l solitary inguinal LNs; less then 1cm - await pelivc u/s PET if anything is abnormal ROV 3 momths Assessment & Plan (09/09/2010 4:22 PM QUARTER SECTION IRONER): 2 yrs out On TMX Port out [...] removal Assessment & Plan (12/04/2009 9:43 AM QUARTER SECTION IRONER): Last Herceptin HAs - left sided; goes up skull; relieved with chiropractor; has gone on for a while On TMX for 7 months ROV 3 months Assessment & Plan (10/20/2009 10:54 AM QUARTER SECTION IRONER): On Herceptin until Nov - has 3 more treatments TMX going ok. 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 PLAN: Herceptin unti 2009 TMX until definitely postmenopausal. ROV 6 [...] her in 6 weeks. FH: migraines 04/17/2009 Current Treatment and Therapy Plans No current plan information found. Past Treatment and Therapy Plans No past plan information found. Lifetime Dose Tracking * Chemical Lifetime Dose Automatic Entry Manual Entr y trastuzumab 43.016 mg/kg (2,765 mg) 43.016 mg/kg (2,7 65 mg) 0 mg/kg (0 mg)
--- OUTSIDE RECORDS SUMMARY | 2024-12-13 09:12 | XMS_ITS | Encounter Summary ---
Author Organization [facility] Address [address] [place] [address] Care Team Providers Care Shrub Planter Name Role Phone Bret Fraser MD Primary Care Provider [phone] Encounter Details Date Type Department Care Team (Latest Contact Info) Description 01/01/2024 MobPartnert Message Enc [facility] Medical Group Multispecialty Care - [address] [address] [address] [place] [address] Bret Fraser MD [address] [facility] [address] [place], [place] [id number] me-right flank pain Social History Tobacco Use Types Packs/Day Years [...] on file documented as of this encounter Progress Notes * Quinn Law - 01/01/2024 9:42 AM CDT Pt is doing a Virtual visit today at 4:20. documented in this encounter Plan of Treatment Upcoming Encounters Date Type Department Care Team (Late st Contact Info) Description 05/30/2025 8:20 AM CDT Office Visit [facility] Medical Group Multispecialty Care - [address] [address] [address] [place] [address] Bret Fraser MD [address] [place] [address] documented as of this encounter Visit Diagnoses Not on filedocumented in this encounter Additional Health Concerns Assessment Noted Time PHQ-9 Depression Total Score: 2 11/29/19 24 7:52 AM RELAY CHECKER documented as of this encounter Care Teams Shrub Planter Relationship Specialty Start Date End Date Bret Fraser MD [address] [place] [address] PCP - General INTERNAL MEDICINE 05/31/22 documented as of this encounter
--- OUTSIDE RECORDS SUMMARY | 2024-12-13 09:12 | XMS_ITS | Encounter Summary ---
Author Organization [facility] Address 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 AM 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 ERECTOR Gender Identity Not on file Sexual Orientation Not on file documented as of this encounter Plan of Treatment Upcoming Encounters Date Type Department Care Team (Late st Contact Info) Description 06/04/2025 1:30 PM CDT Office Visit [facility]-[address] [address] Monica Albert MD [address] [place] [address] documented as of this encounter Visit Diagnoses Diagnosis Elderly primigravida, antepartum- Primary documented in this encounter Care Teams Customer Service Representative Teacher Relationship Specialty Start Date End Date Bret Fraser MD [address] [place] [address] PCP - General Internal Medicine 05/28/24 documented as of this encounter
== END 2024-12-13 08:41 | disposition home or self-care (01) ==
LOC: ANHIMG 08:45
PROVIDERS: PCP Internal Medicine; Visit Provider Internal Medicine
DX: M81.0 Age-related osteoporosis without current pathological fracture (principal); M85.88 Other specified disorders of bone density and structure, other site; M85.852 Other specified disorders of bone density and structure, left thigh; M85.851 Other specified disorders of bone density and structure, right thigh
CPT/HCPCS: 77080

== ENCOUNTER 2025-07-29 12:53 | Emergency (ER) | payer OTHER, SELFPAY ==
--- OUTSIDE RECORDS SUMMARY | 2007-08-20 08:45 | XMS_ITS | Continuity of Care Document ---
Author Organization [facility] Address [address] [place] [address] [place] [address] Phone Care Team Providers Care Asphalt Paving Machine Operator Name Role Phone Sabino Barba Unavailable Unavailable Procedures Procedure Date Eye Exam, New Patient Advance Directives Directive Yes / No Effective Date File Name No Information Encounters Encounter Description Practice Location Reason(s) For Visit Diagnoses Date Provider Providers Copied on Encounter [facility], [address] [place] [address] [address], [place], [place], [id number], [place] tel:[phone] [facility] No Information Jameson Gallo. [address] [place], [place], [facility], [place]. tel:[phone] Referring Provider: Tacos Ochoa MD, [address], [facility]. tel:[phone] Family History Family Member Type Diagnosis Age At Onset No Information Payers Payer name Insurance type Covered republican ID Gisel vazquez(s) [facility] CI [id number] Social History Type Description Quantity Date Captured [...]
--- NOTE | ~2025-07-29 | CT_ITS ---
Exam: CT abdomen and pelvis with contrast Clinical History: [Epigastric pain after eating. Elevated lipase. ] Comparison: [ 03/04/2020] Technique: Multiple axial CT images of the abdomen and pelvis were obtained with IV contrast. Sagittal and coronal reformatted images were obtained. FINDINGS: Lung bases: [Small opacities in the visualized lungs. ] Liver: [Fatty liver.No mass.] [ No intrahepatic biliary duct dilatation.] Gallbladder: [ No wall thickening or stones.] Small amount of pericholecystic fluid. Common bile duct: [ Normal caliber.] [ No stones.] Spleen: [ Within normal limits.] Pancreas: [ No mass. No pancreatic fluid collection.] Adrenals: [ No masses.] Kidneys: [ No masses. No hydronephrosis.][ ] Lymph nodes: [ No adenopathy in the abdomen or pelvis.] Stomach, small bowel and colon: Concentric thickening of the cuevas of the distal transverse and proximal descending colon. Differential includes incomplete bowel wall distention versus colitis. Peritoneum cavity: Small amount of fluid in the pelvis. Bladder: [ Unremarkable.] Osseous structures: [ No acute fracture or destructive lesion.] [ Multilevel degenerative change in the visualized spine.] Abdominal aorta: [ No aneurysm.] Additional findings: [ None of significance.] IMPRESSION: 1. Small amount pericholecystic fluid. Borderline gallbladder wall thickening. Consider acute cholecystitis. Consider a HIDA scan for further assessment. 2. Concentric thickening of the cuevas of the distal transverse and proximal descending colon. Differential includes incomplete bowel wall distention versus colitis. 3. Small amount of nonspecific fluid in the pelvis. 4. Fatty liver. Reviewed, dictated and finalized at location Q. IMPRESSION: 1. Small amount pericholecystic fluid. Borderline gallbladder wall thickening. Consider acute cholecystitis. Consider a HIDA scan for further assessment. 2. Concentric thickening of the cuevas of the distal transverse and proximal thierno cending colon. Differential includes incomplete bowel wall distention versus co litis. 3. Small amount of nonspecific fluid in the pelvis. 4. Fatty liver.
--- NOTE | ~2025-07-29 | US_ITS ---
US abdomen limited Indication: upper abd pain, gb thickening on ct Comparison: None Technique: Ochoa-scale and color Doppler images were obtained. Findings: LIVER: Unremarkable, liver contours intact, no lesions. Normal echogenicity. . GALLBLADDER/BILIARY: Unremarkable.No cholelithiais, wall thickening or pericholecystic fluid. No biliary dilatation. CBD 2 mm. Warren sign negative. PANCREAS: Unremarkable. Right Kidney: Right kidney was not imaged. Impression: No acute abnormality. Reviewed, dictated and finalized at location P. Impression: No acute abnormality.
[2025-07-29 12:59] VITALS: BP 123/84; PULSE 76; RESP 20; TEMP 36.6; O2SAT 99
[2025-07-29 13:06] VITALS: BP 123/84; PULSE 78; RESP 14; O2SAT 99
[2025-07-29 13:22] LABS: Hematocrit 42.6 % (37.0-47.0); Hemoglobin 14.1 g/dL (12.0-15.0); Immature Granulocyte Percent A 0.2 % (0-0.5); Lymphocytes Absolute Auto 1.67 K/mm3 (0.9-3.2); Mean Corpuscular HGB Conc 33.1 g/dl (32-36); Mean Corpuscular Hemoglobin 30.8 pg (26-34); Mean Corpuscular Volume 93.0 fl (80-100); Nucleated Red Blood Cells Absolute Auto 0.000 K/mm3 (0.0-0.012); Nucleated Red Blood Cells Perc 0.0 % (0.0-0.2); Platelet Count Result 249 k/mm3 (150-375); Red Blood Count 4.58 M/mm3 (4.2-5.4); White Blood Count 5.6 K/mm3 (4.5-10.0)
[2025-07-29 13:32] LABS: Alanine Aminotransferase 23 U/L (6-35); Albumin Level 4.7 g/dL (3.5-5.1); Alkaline Phosphatase 77 U/L (38-126); Anion Gap 9 mmol/L (4-12); Aspartate Amino Transferase 39 U/L (14-36); Bilirubin,Total 0.2 mg/dL (0.2-1.3); Blood Urea Nitrogen 18 mg/dL (7-17); Calcium 9.2 mg/dL (8.4-10.2); Carbon Dioxide 28 mmol/L (22-30); Chloride 100 mmol/L (98-107); Estimated CRCL calculation 46 ml/min; Estimated Glomerular Filt Rate 46; Glucose 111 mg/dL (65-110); Lipase 1177 U/L (23-300); Potassium 4.0 mmol/L (3.4-5.0); Sodium 137 mmol/L (137-145); Total Protein 8.1 g/dL (6.3-8.2)
--- NOTE | 2025-07-29 13:38 | ECG_ITS ---
Test Date: 2025-07-29 13:52:10 Measurements Intervals [place] Rate: 76 P: 12 DC: 147 QRS: 50 QRSD: 89 T: 48 QT: 381 QTc: 430 Interpretive Statements SINUS RHYTHM BASELINE ARTIFACT- I, II, AVR, AVL, AVF NORMAL ECG No previous ECG available for comparison Electronically Signed On 07-29-2025 13:56:22 CDT by Amaury Sanchez D.O.
--- OUTSIDE RECORDS SUMMARY | 2025-07-29 13:43 | XMS_ITS | Encounter Summary ---
Author Organization [facility] Address 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
--- OUTSIDE RECORDS SUMMARY | 2025-07-29 13:43 | XMS_ITS | Encounter Summary ---
Author Organization [facility] Address [address] [place] [address] Care Team Providers Care Senior Engineering Tech Name Role Phone Bret Fraser MD Primary Care Provider [phone] Encounter Details Date Type Department Care Team (Latest Contact Info) Description 01/01/2024 Noise Freakst Message Enc [facility] Medical Group Multispecialty Care - [address] [address] [address] [place] [address] Bret Fraser MD [address] [facility] [address] [place], [place] [id number] me-right flank pain Social History Tobacco Use [...] Care Team (Late st Contact Info) Description 12/01/2025 8:40 AM SLAT BASKET MAKER MACHINE Office Visit [facility] Multispecialty Care - [place] [address] [address] [address] [place] [address] Bret Fraser MD [address] [place] [address] documented as of this encounter Visit Diagnoses Not on filedocumented in this encounter Additional Health Concerns Assessment Noted Time PHQ-9 Depression Total Score: 2 11/29/19 24 7:52 AM SLAT BASKET MAKER MACHINE documented as of this encounter Care Teams Senior Engineering Tech Relationship Specialty Start Date End Date Bret Fraser MD [address] [place] [address] PCP - General INTERNAL MEDICINE 05/31/22 documented as of this encounter
--- OUTSIDE RECORDS SUMMARY | 2025-07-29 13:43 | XMS_ITS | Encounter Summary ---
Author Organization [facility] Address [address] [place] [address] Care Team Providers Care Kennel Keeper Name Role Phone Bret Fraser MD Primary Care Provider [phone] Encounter Details Date Type Department Care Team (Latest Contact Info) Description 12/12/2002 Outpatient Historical [facility] Sandeep Woo MD [address] [facility] [address] [place] [address] ELDER PRIMIGRAVID-ANTEPART UM (Primary Dx) Social History Tobacco Use Types Packs/Day Years Used Date Smoking Tobacco: Never Assessed Comments Unknown Sex and Gender Information Value Date Recorded Sex Assigned at Not on file Legal Sex Female 5:01 AM SAFETY REPRESENTATIVE Gender Identity Not on file Sexual Orientation Not on file documented as of this encounter Plan of Treatment Not on file documented as of this encounter Procedures Procedure Name Priority Date/Time Associated Diagnosis Comments POC GLUCOSE Routine 12/13/2005 7:05 AM SAFETY REPRESENTATIVE documented in this encounter Results * POC GLUCOSE (12/13/2005 7:05 AM SAFETY REPRESENTATIVE) GLUCOSE POC Invalid Result 65 - 109 INTERFACE SYSTEM Comment:incorrect fin#, pt c redited 12/13/2005 7:05 AM SAFETY REPRESENTATIVE us Sandeep Woo MD POINT OF CARE TESTING Final Re sult INTERFACE SYSTEM Refer to clinic/hospital department documented in this encounter Visit Diagnoses Diagnosis Elderly primigravida, antepartum- Primary documented in this encounter Care Teams Kennel Keeper Relationship Specialty Start Date End Date Bret Fraser MD [address] [place] [address] PCP - General Internal Medicine 05/28/24 documented as of this encounter
--- OUTSIDE RECORDS SUMMARY | 2025-07-29 13:43 | XMS_ITS | Encounter Summary ---
Author Organization [facility] Address [address] [place] [address] Care Team Providers Care Pediatric Licensed Practical Nurse Name Role Phone Bret Fraser MD Primary Care Provider [phone] Encounter Details Date Type Department Care Team (Late st Contact Info) Description 12/25/2024 MyChart Message Enc [address] [address] Bret Fraser MD [address] [place] [address] bone density Social History Tobacco Use Types Packs/Day Years [...] st Contact Info) Description 12/01/2025 8:40 AM PATIENT ACCESS [facility] [address] [place] [address] Bret Farser MD [address] [address] documented as of this encounter Visit Diagnoses Not on filedocumented in this encounter Additional Health Concerns Assessment Noted Time PHQ-9 Depression Total Score: 0 05/31/20 24 8:30 AM CDT documented as of this encounter Care Teams Pediatric Licensed Practical Nurse Relationship Specialty Start Date End Date Bret Fraser MD [address] [address] PCP - General INTERNAL MEDICINE 05/31/22 documented as of this encounter
--- OUTSIDE RECORDS SUMMARY | 2025-07-29 13:43 | XMS_ITS | Encounter Summary ---
Author Organization [facility] Address [address] [place] [address] Care Team Providers Care Wine Fermenter Name Role Phone Bret Fraser MD Primary Care Provider [phone] Encounter Details Date Type Department Care Team (Late st Contact Info) Description 04/17/2009 Outpatient Historical [facility], [address] Kady Jones MD [address] [place] [address] [place] [address] Malignant Neoplasm of Breast (Female), Unspecified Site (CMS/HCC) Social History Tobacco Use Types Packs/Day Years Used Date Smoking Tobacco: Never Assessed Comments No Sex and Gender Information Value Date Recorded Sex Assigned at Not on file 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
--- OUTSIDE RECORDS SUMMARY | 2025-07-29 13:43 | XMS_ITS | Encounter Summary ---
Author Organization [facility] Address [facility] [place] [address] Care Team Providers Care Manager Package Name Role Phone Bret Fraser MD Primary Care Provider [phone] Encounter Details Date Type Department Care Team (Latest Contact Info) Description 06/02/2025 Results Follow-Up [facility] Multispecialty Care - [address] [address] [address] [place] [address] [place] [address] [place] [address] [id number] LIPID PANEL, COMPREHENSIVE METABOLIC PANEL, CBC W/DIFF AUTOMATED, Additional followed-up results: 3 Social History Tobacco Use Types Packs/Day Years Used Date Smoking Tobacco: Never Smokeless Tobacco: Never Comments:counseled by Dr Shari shoemaker Alcohol Use Standard Drinks/Week Comments Never 0 (1 standard drink = 0.6 oz pur e alcohol) B1300 Health Literacy Answer Date Recor ded How often do you need to hav e someone help you when you read instructions, pamphlets, or other written material from your doctor or pharmacy? Never 05/30/2025 Humiliation, Afraid, Rape, and Kick questionnair e Answer Date Recorded Within the last year, have y ou been afraid of your partner or ex-partner? No 05/30/2025 Within the last year, have y ou been humiliated or emotionally abused in other ways by your partner or ex-partner? No Within the last year, have y ou been kicked, hit, slapped, or otherwise physically hurt by your partner or ex-partner? No 05/30/2025 Within the last year, have y ou been raped or forced to have any kind of sexual activity by your partner or ex-partner? No 05/30/2025 Social Connection and Isolat ion Panel [NHANES] Answer Date Recorded In a typical week, how many times do you talk on the phone with family, friends, or neighbors? More than three times a week 05/30/2025 How often do you get togethe r with friends or relatives? More than three times a week 05/30/2025 Attends Restoration Services Not on file 05/30 Active Member of Clubs or Organizations Not on f ile 05/30/2025 Attends Club or Organization Meetings Not on sven e 05/30/2025 Marital Status Not on file 05/30/2025 AUDIT-C Answer Date Recorded Q1: How often do you have a drink containing alc ohol? Monthly or less 05/30/2025 Q2: How many drinks containi ng alcohol do you have on a typical day when you are drinking? 1 or 2 05/30/2025 Q3: How often do you have si x or more drinks on one occasion? Never 05/30/2025 Overall Financial Resource Strain (CARDIA) Answe r Date Recorded How hard is it for you to pa y for the very basics like food, housing, medical care, and heating? Not very hard 05/30/2025 PHQ-2 Answer Date Recorded Patient Health Questionnaire-2 Score 0 05/30/2025 Exercise Vital Sign Answer Date Recorde d On average, how many days pe r week do you engage in moderate to strenuous exercise (like a brisk walk)? 7 days 05/30/2025 On average, how many minutes do you engage in exercise at this level? 60 min 05/30/2025 Hunger Vital Sign Answer Date Recorded Within the past 12 months, y ou worried that your food would run out before you got the money to buy more. Patient unable to answer 05/30/2025 Within the past 12 months, t he food you bought just didn't last and you didn't have money to get more. Patient unable to answer 05/30/2025 Housing Stability Vital Sign Answer Shayan e Recorded Unable to Pay for Housing in the Last Year Not o n file 05/30/2025 Number of Times Moved in the Last Year Not on fi le 05/30/2025 At any time in the past 12 m [facility], were you homeless or living in a custodial (including now)? No 05/30/2025 Comments No Sex and Gender Information Value Date Recorded Sex Assigned at Not on file Legal Sex Female 7:36 PM CDT Gender Identity Not on file Sexual Orientation Not on file documented as of this encounter Plan of Treatment Upcoming Encounters Date Type Department Care Team (Late st Contact Info) Description 12/01/2025 8:40 AM CLINICAL DENTAL TECHNICIAN Office Visit [facility] Multispecialty Care [address] [address] [address] [place] [address] Bret Fraser MD [address] [place] [address] documented as of this encounter Visit Diagnoses Not on filedocumented in this encounter Additional Health Concerns Assessment Noted Time PHQ-9 Depression Total Score: 0 05/30/20 25 9:38 AM CDT documented as of this encounter Care Teams Manager Package Relationship Specialty Start Date End Date Bret Fraser MD [address] [place] [address] PCP - General INTERNAL MEDICINE 05/31/22 documented as of this encounter
--- OUTSIDE RECORDS SUMMARY | 2025-07-29 13:43 | XMS_ITS | Encounter Summary ---
Author Organization [facility] Address [address] [place] [address] Care Team Providers Care Wheel Press Clerk Name Role Phone Bret Fraser MD Primary Care Provider [phone] Encounter Details Date Type Department Care Team (Late st Contact Info) Description 05/29/2009 Outpatient Historical [facility], [address] Kady Jones MD [address] [place] [address] [place] [address] Malignant Neoplasm of Breast (Female), Unspecified Site (CMS/HCC) Social History Tobacco Use Types Packs/Day Years Used Date Smoking Tobacco: Never Alcohol Use Standard Drinks/Week Comments Yes 0 (1 standard drink = 0.6 oz pur e alcohol) rare Comments No Sex and Gender Information Value Date Recorded Sex Assigned at Not on file Legal Sex Female 5:01 AM ADZING AND BORING MACHINE OPERATOR Gender Identity Not on file Sexual Orientation Not on file documented as of this encounter Plan of Treatment Not on file documented as of this encounter Visit Diagnoses Diagnosis Malignant neoplasm of breast (female), unspecified site documented in this encounter Care Teams Wheel Press Clerk Relationship Specialty Start Date End Date Bret Fraser MD [address] [place] [address] PCP - General Internal Medicine 05/28/24 documented as of this encounter
--- OUTSIDE RECORDS SUMMARY | 2025-07-29 13:43 | XMS_ITS | Encounter Summary ---
Author Organization [facility] Address [address] [place] [address] Care Team Providers Care Engineering Associate Name Role Phone Bret Fraser MD Primary Care Provider [phone] Encounter Details Date Type Department Care Team (Late st Contact Info) Description 10/11/2023 MyChart Message Enc [address] [address] Bret Fraser MD [address] [place] [address] Cruise Social History Tobacco Use Types Packs/Day [...] st Contact Info) Description 12/01/2025 8:40 AM CHEMISTRY TUTOR Office Visit [facility] Medical [facility] Multispecialty [address] [place] [address] Bret Fraser MD [address] [address] documented as of this encounter Visit Diagnoses Not on filedocumented in this encounter Care Teams Engineering Associate Relationship Specialty Start Date End Date Bret Fraser MD [address] [address] PCP - General INTERNAL MEDICINE 05/31/22 documented as of this encounter
--- OUTSIDE RECORDS SUMMARY | 2025-07-29 13:43 | XMS_ITS | Encounter Summary ---
Author Organization [facility] Address [address] [place] [address] Care Team Providers Care Cell Coverer Name Role Phone Bret Fraser MD Primary Care Provider [phone] Encounter Details Date Type Department Care Team (Late st Contact Info) Description 01/09/2003 Outpatient Historical [facility] Maternal and Ground Floor S [facility] [address] [place] [address] Palmer Argueta MD [address] [facility] [address] [place] [address] Social History Tobacco Use Types Packs/Day Years Used Date Smoking Tobacco: Never Assessed Comments Unknown Sex and Gender Information Value Date Recorded Sex Assigned at Not on file Legal Sex Female 5:01 AM AIRCRAFT NAVIGATOR Gender Identity Not on file Sexual Orientation Not on file documented as of this encounter Plan of Treatment Not on file documented as of this encounter Visit Diagnoses Not on filedocumented in this encounter Care Teams Cell Coverer Relationship Specialty Start Date End Date Bret Fraser MD [address] [place] [address] PCP - General Internal Medicine 05/28/24 documented as of this encounter
--- OUTSIDE RECORDS SUMMARY | 2025-07-29 13:43 | XMS_ITS | Encounter Summary ---
Author Organization [facility] Address [address] [place] [address] Care Team Providers Care Remedial Teacher Name Role Phone Bret Fraser MD Primary Care Provider [phone] Encounter Details Date Type Department Care Team (Late st Contact Info) Description 01/13/2003 Outpatient Historical [facility] Sandeep Woo MD [address] [place] [address] Social History Tobacco Use Types Packs/Day Years Used Date Smoking Tobacco: Never Assessed Comments Unknown Sex and Gender Information Value Date Recorded Sex Assigned at Not on file Legal Sex Female 5:01 AM MECHANICAL PRESS OPERATOR Gender Identity Not on file Sexual Orientation Not on file documented as of this encounter Plan of Treatment Not on file documented as of this encounter Visit Diagnoses Not on filedocumented in this encounter Care Teams Remedial Teacher Relationship Specialty Start Date End Date Bret Fraser MD [address] [place] [address] PCP - General Internal Medicine 05/28/24 documented as of this encounter
--- OUTSIDE RECORDS SUMMARY | 2025-07-29 13:43 | XMS_ITS | Clinical Summary ---
Author Organization [facility] Address [address] [place] [address] Care Team Providers Care Dry Plasterer Helper Name Role Phone Tacos Ochoa MD Primary Care Provider [phone] Source Comments [facility],non-[facility] Affiliates and Associated Physician Practices is amultiple site organization consisting of ambulatory clinics and hospital sitesin [place], [place], [place] and [place]. This disclosure is being madepursuant to the Care Everywhere program and may not contain all information available regarding this patient. Last updated 18.[facility] Social History Tobacco Use Types Packs/Day Years Used Date Smoking Tobacco: Never Assessed Comments Unknown Sex and Gender Information Value Date Recorded Sex Assigned at Not on file Legal Sex Female 12:00 PM MICROGRINDER OPERATOR Gender Identity Not on file Sexual Orientation Not on file Plan of Treatment Health Maintenance Due Date Last Done Comments COLOGUARD (AGES 45-75) - COL ON CA SCREENING 1965 COLON MONITORING 1965 COLONOSCOPY - COLON CA SCREENING 1965 CT COLONOGRAPHY - COLON CA SCREENING 1965 Colorectal Cancer Screening 1965 FIT - COLON CA SCREENING 1965 FLEX SIG - COLON CA SCREENING 1965 MAMMOGRAM 1965 HIV SCREENING 1980 HEPATITIS C SCREENING 09/03/1983 DTAP/TDAP/TD VACCINES (1 - Tdap) 1984 HEPATITIS B VACCINE (1 of 3 - 19+ 3-dose series) 1984 PNEUMOCOCCAL VACCINE 50+ (1 of 1 - PCV) 2015 ZOSTER VACCINE (1 of 2) 2015 DEPRESSION SCREENING 10/23/2024 COVID-19 VACCINE (3 - 2024-2 6 season) 2025 01/30/2021, 01/02/2021 INFLUENZA VACCINE (#1) 2025 5, 08/27/2014 LIPID TESTING 09/28/2026 09/28/2021, 09/28/2021 HIB VACCINE Aged Out No longer eligi ble based on patient's age to complete this topic HPV VACCINE Aged Out No longer eligi ble based on patient's age to complete this topic MENINGOCOCCAL (Group B) VACCINE SHARED DECISION-MAKING Aged Out No longer eligible based on patient's age to complete this topic MENINGOCOCCAL GROUPS A/C/Y/W VACCINE Aged Out No longer eligible b ased on patient's age to complete this topic [place] [address] [address] Care Teams Dry Plasterer Helper Relationship Specialty Start Date End Date Tacos Ochoa MD [address] [facility] [address] [place] [address] PCP - General 01/03/22
--- OUTSIDE RECORDS SUMMARY | 2025-07-29 13:43 | XMS_ITS | Encounter Summary ---
Author Organization [facility] Address [address] [place] [address] Care Team Providers Care Photovoltaic Testing Technician Name Role Phone Bret Fraser MD Primary Care Provider [phone] Encounter Details Date Type Department Care Team (Late st Contact Info) Description 02/20/2003 Outpatient Historical [facility] Maternal and Ground Floor S [facility] [address] [place] [address] Naida Wall MD [address] [place] [address] Social History Tobacco Use Types Packs/Day Years Used Date Smoking Tobacco: Never Assessed Comments Unknown Sex and Gender Information Value Date Recorded Sex Assigned at Not on file Legal Sex Female 5:01 AM SALON RECEPTIONIST Gender Identity Not on file Sexual Orientation Not on file documented as of this encounter Plan of Treatment Not on file documented as of this encounter Visit Diagnoses Not on filedocumented in this encounter Care Teams Photovoltaic Testing Technician Relationship Specialty Start Date End Date Bret Fraser MD [address] [place] [address] PCP - General Internal Medicine 05/28/24 documented as of this encounter
--- OUTSIDE RECORDS SUMMARY | 2025-07-29 13:43 | XMS_ITS | Encounter Summary ---
Author Organization [facility] Address [address] [place] [address] Care Team Providers Care Automation Machine Builder Name Role Phone Bret Fraser MD Primary Care Provider [phone] Encounter Details Date Type Department Care Team (Latest Contact Info) Description 02/17/2009 Outpatient Historical [facility], [address] [place] Rachel Calix MD [address] [address] [place] [address] Malignant Neoplasm of Breast (Female), Unspecified Site (CMS/HCC) Social History Tobacco Use Types Packs/Day Years Used Date Smoking Tobacco: Never Assessed Comments Unknown Sex and Gender Information Value Date Recorded Sex Assigned at Not on file 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 Gender Identity Not on file Sexual [...] CDT) CALCIUM 9.6 8.6 - 10.2 mg/dL [facility] CHLORIDE 100 96 - 108 mmol/L [facility] ALBUMIN 4.4 3.4 - 4.8 g/dL [facility] CREATININE 0.79 0.51 - 0.95 mg/dL [facility] SODIUM 136 135 - 145 mmol/L [facility] ALT 59(H) 0 - 31 U/L [facility] ALKALINE PHOSPHATASE 55 35 - 104 U/L [facility] BILIRUBIN TOTAL 0.3 0.2 - 1.0 mg/dL [facility] CO2 28 22 - 30 mmol/L [facility] TOTAL PROTEIN 7.1 6.3 - 8.6 g/dL [facility] POTASSIUM 4.1 3.5 - 4.9 mmol/L [facility] GLUCOSE 95 65 - 99 mg/dL [facility] AST 41(H) 12 - 32 U/L [facility] BUN 17 6 - 20 mg/dL [facility] GFR, >60 >=60 mL/min/1.7 sq meter [facility] GFR >60 >=60 mL/min/1.7 sq meter [facility] Comment: Modification of Diet in Renal Disease (MDRD) study formula. Estimated GFR rate interpretative information for both Americans and non- Americans is available on the [facility] Intranet at: [email or web address] Select: Lab Policies and Procedures Select: Reference Ranges - GFR Blood specimen (specimen) 02/17/2009 9:21 PM CDT 02/17/2009 9:21 PM CDT us Rachel Calix MD CHEMISTRY ORDERABLES Edited INTERFACE SYSTEM Refer to clinic/hospital department [facility] CLIA# [id number] [address] [place] [address] * (ABNORMAL) CBC WITH DIFFERENTIAL (02/17/2009 9:21 PM CDT) MCV 93.2 82.0 - 99.0 fL [facility] PLATELETS 201 140 - 350 K/uL [facility] HEMOGLOBIN 12.9 11.8 - 14.8 g/dL [facility] RDW 12.5 11.5 - 14.5 % [facility] WBC 3.0(L) 4.0 - 9.8 K/uL [facility] MCH 31.4 27.2 - 32.6 pg [facility] MPV 11.5 9.3 - 12.4 fL [facility] HEMATOCRIT 38.3 35.5 - 44.0 % [facility] RDW-STDEV 42.0 37.1 - 48.7 fL [facility] RBC 4.11 3.90 - 4.90 M/uL [facility] MCHC 33.7 31.5 - 35.5 % [facility] EOSINOPHILS 3 0 - 7 % [facility] EOSINOPHIL ABSOLUTE 0.09 0.00 - 0.70 K/uL [facility] LYMPHOCYTES 25 16 - 45 % [facility] LYMPHOCYTE ABSOLUTE 0.75 0.70 - 4.50 K/uL [facility] BASOPHILS 1 0 - 2 % [facility] BASOPHILS ABSOLUTE 0.03 0.00 - 0.20 K/uL [facility] MONOCYTES 15(H) 3 - 13 % [facility] MONOCYTE ABSOLUTE 0.43 0.10 - 1.30 K/uL [facility] NEUTROPHILS 56 45 - 70 % [facility] NEUTROPHIL ABSOLUTE 1.65(L) 1.90 - 7.00 K/uL [facility] Blood specimen (specimen) 02/17/2009 9:21 PM CDT 02/17/2009 9:21 PM CDT Narrative INTERFACE SYSTEM - 02/19/2009 2:06 PM CDT faxed to [phone] 02/19/09 14:06 ve us Rachel Calix MD HEMATOLOGY ORDERABLES Edited INTERFACE SYSTEM Refer to clinic/hospital department [facility] CLIA# [id number] [address] [place] [address] documented in this encounter Visit Diagnoses Diagnosis Malignant neoplasm of breast (female), unspecified site documented in this encounter Care Teams Automation Machine Builder Relationship Specialty Start Date End Date Bret Fraser MD [address] [place] [address] PCP - General Internal Medicine 05/28/24 documented as of this encounter
--- OUTSIDE RECORDS SUMMARY | 2025-07-29 13:43 | XMS_ITS | Encounter Summary ---
Author Organization [facility] Address [facility] [place] [address] Care Team Providers Care Manager Diesel Name Role Phone Bret Fraser MD Primary Care Provider [phone] Encounter Details Date Type Department Care Team (Latest Contact Info) Description 06/03/2025 Results Follow-Up [facility] Multispecialty Care - [address] [address] [address] [place] [address] Bret Fraser MD [address] [place] [address] [phone] URINALYSIS AUTO DIP Social History Tobacco Use Types Packs/Day Years [...] than three times a week 05/30/2025 Attends [employer] Services Not on file 05/30 Active Member [...] any time in the past 12 m [facility], were you homeless or living in a skilled nursing (including now)? No 05/30/2025 Comments No Sex and Gender Information Value Date Recorded Sex Assigned at Not on file Legal Sex Female 7:36 PM CDT Gender Identity Not on file Sexual Orientation Not on file documented as of this encounter Plan of Treatment Upcoming Encounters Date Type Department Care Team (Late st Contact Info) Description 12/01/2025 8:40 AM VP FOUNDATION Office Visit [facility] Multispecialty Care - [address] [address] [address] [place] [address] Bret Fraser MD [address] [place] [address] documented as of this encounter Visit Diagnoses Not on filedocumented in this encounter Additional Health Concerns Assessment Noted Time PHQ-9 Depression Total Score: 0 05/30/20 25 9:38 AM CDT documented as of this encounter Care Teams Manager Diesel Relationship Specialty Start Date End Date Bret Fraser MD [address] [place] [address] PCP - General INTERNAL MEDICINE 05/31/22 documented as of this encounter
--- OUTSIDE RECORDS SUMMARY | 2025-07-29 13:43 | XMS_ITS | Encounter Summary ---
Author Organization [facility] Address [address] [place] [address] Care Team Providers Care Vice President For Philanthropy Name Role Phone Bret Fraser MD Primary Care Provider [phone] Encounter Details Date Type Department Care Team (Latest Contact Info) Description 05/08/2009 Outpatient Historical [facility] Dflt Department Kady Jones MD [address] [place] [address] [place] [address] Encounter for Antineoplastic Chemotherapy Social History Tobacco Use Types Packs/Day Years Used Date Smoking Tobacco: Never Assessed Comments No Sex and Gender Information Value Date Recorded Sex Assigned at Not on file Legal Sex Female 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
--- OUTSIDE RECORDS SUMMARY | 2025-07-29 13:43 | XMS_ITS | Encounter Summary ---
Author Organization [facility] Address [address] [place] [address] Care Team Providers Care Loss Prevention Auditor Name Role Phone Bret Fraser MD Primary Care Provider [phone] Encounter Details Date Type Department Care Team (Late st Contact Info) Description 03/31/2003 Outpatient Historical [facility] Maternal and Ground Floor S [facility] [address] [facility] [place] [address] Asad Vega MD NO ADDRESS ON FILE Social History Tobacco Use Types Packs/Day Years Used Date Smoking Tobacco: Never Assessed Comments Unknown Sex and Gender Information Value Date Recorded Sex Assigned at Not on file 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
--- OUTSIDE RECORDS SUMMARY | 2025-07-29 13:43 | XMS_ITS | Encounter Summary ---
Author Organization [facility] Address [address] [place] [address] Care Team Providers Care Documentum Consultant Name Role Phone Bret Fraser MD Primary Care Provider [phone] Encounter Details Date Type Department Care Team (Latest Contact Info) Description 09/03/2024 [employer] Message Enc [address] [address] Bret Fraser MD [address] [place] [address] [phone] DIANELYS KILPATRICKKIARABASSAM PHYSICAL FORM Social History Tobacco [...] st Contact Info) Description 12/01/2025 8:40 AM PROJECTION WELDING MACHINE OPERATOR Office Visit [facility] Medical [facility] Multispecialty [address] [place] [address] [place] [address] [place] [address] documented as of this encounter Visit Diagnoses Not on filedocumented in this encounter Additional Health Concerns Assessment Noted Time PHQ-9 Depression Total Score: 0 05/31/20 24 8:30 AM CDT documented as of this encounter Care Teams Documentum Consultant Relationship Specialty Start Date End Date Bret Fraser MD [address] [place] [address] PCP - General INTERNAL MEDICINE 05/31/22 documented as of this encounter
--- OUTSIDE RECORDS SUMMARY | 2025-07-29 13:43 | XMS_ITS | Encounter Summary ---
Author Organization [facility] Address [address] [place] [address] Care Team Providers Care Edge Gluer Name Role Phone Bret Fraser MD Primary Care Provider [phone] Encounter Details Date Type Department Care Team (Late st Contact Info) Description 02/27/2003 Outpatient Historical [facility] Maternal and Ground Floor S [facility] [address] [place] [address] Naida Wall MD [address] [place] [address] Social History Tobacco Use Types Packs/Day Years Used Date Smoking Tobacco: Never Assessed Comments Unknown Sex and Gender Information Value Date Recorded Sex Assigned at Not on file 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
--- OUTSIDE RECORDS SUMMARY | 2025-07-29 13:43 | XMS_ITS | Encounter Summary ---
Author Organization [facility] Address [address] [place] [address] Care Team Providers Care Brake Lining Finisher Asbestos Name Role Phone Bret Fraser MD Primary Care Provider [phone] Encounter Details Date Type Department Care Team (Late st Contact Info) Description 03/28/2003 Outpatient Historical [facility] Maternal and Ground Floor S [facility] [address] [place] [address] Naida Wall MD [address] [place] [address] Social History Tobacco Use Types Packs/Day Years Used Date Smoking Tobacco: Never Assessed Comments Unknown Sex and Gender Information Value Date Recorded Sex Assigned at Not on file Legal Sex Female 5:01 AM ORDER PLANNER Gender Identity Not on file Sexual Orientation Not on file documented as of this encounter Plan of Treatment Not on file documented as of this encounter Visit Diagnoses Not on filedocumented in this encounter Care Teams Brake Lining Finisher Asbestos Relationship Specialty Start Date End Date Bret Fraser MD [address] [place] [address] PCP - General Internal Medicine 05/28/24 documented as of this encounter
--- OUTSIDE RECORDS SUMMARY | 2025-07-29 13:43 | XMS_ITS | Clinical Summary ---
Author Organization [facility] Address [address] [place] [address] Care Team Providers Care Playback Operator Name Role Phone Bret Fraser MD Primary Care Provider [phone] Allergies Active Allergy Reactions Criticality Noted Date Comments Alendronate Other (see comment) 11/29/2023 Tail bone and hip pain Medications Cholecalciferol 50 MCG (1999 UT) Cap Take 4,000 Int'l Units by mouth. Active Estradiol 10 MCG vaginal tablet 2 Active oxybutynin XL (DITROPAN-XL) 5 MG 24 hr tabletIndication s:Mixed stress and urge urinary incontinence Take 1 tablet (5 mg total) by mouth daily. 90 tablet 1 5 Active omeprazole (PRILOSEC) 20 MG capsuleIndicatio ns:Gastroesophag eal reflux disease without esophagitis Take 1 capsule (20 mg total) by mouth daily. 90 capsule 1 5 Active escitalopram (LEXAPRO) 10 MG tabletIndication s:HANS (generalized anxiety disorder) Take 1 tablet (10 mg total) by mouth every morning. 90 tablet 1 5 Active denosumab (PROLIA) 60 MG/ML injectionIndicat ions:Osteoporosi s, unspecified osteoporosis type, unspecified pathological fracture presence Inject 1 mL (60 mg total) into the skin every 6 (six) months. Mail to: [facility], [facility] [address]. 1 mL 1 Active Active Problems Problem Noted Date Diagnosed Date HANS (generalized anxiety disorder) 06/28/2022 ADD (attention deficit disorder) 06/28/2022 Hematuria 05/31/2022 Malignant neoplasm of breast ([facility]/HCC [facility]/HCC) 0 04/17/2009 Overview (05/31/2022): 08/13/08 LEFT breast cancer IDC T1c Ni+ M0 ER 21% AR- HER2 4.4 BRCA 1/2 negative 08/27/08 LEFT LUMP and slnd 09/26/08-11/27/08 AC x 4 and Taxotere and Herceptin until November 2009 02/26/09 b/l mastectomy 04/03/09 TMX Last Assessment & Plan: 5 years out On TMX 4 years Taking vit D monthly - due now Green smoothies now. 08/13/08 LEFT breast cancer IDC T1c Ni+ M0 ER 21% AR- HER2 4.4 BRCA 1/2 negative 08/27/08 LEFT LUMP and slnd 09/26/08-11/27/08 AC x 4 and Taxotere and Herceptin until November 2009 02/26/09 b/l mastectomy 04/03/09 TMX Last Assessment & Plan: 5 years out On TMX 4 years Taking vit D monthly - due now Green smoothies now. Encounters Date Type Department Care Team Description 06/09/2025 MyChart Message Enc [facility] [place] [address] [place], [place] [id number] Bret Fraser MD Physician form to fill out 06/04/2025 Scan [facility] INFO SRVCS Scanned, [facility] 06/03/2025 Results Follow-Up [facility] [place] [address] [place], [place] [id number] Bret Fraser MD URINALYSIS AUTO DIP 06/02/2025 Telephone [facility] [place] [address] [facility] [address] [place] [address] Bret Fraser MD Record Request 06/02/2025 Results Follow-Up [place] [address] [address] [facility] [address] [place] [address] Bret Fraser MD LIPID PANEL, COMPREHENSIVE METABOLIC PANEL, CBC W/DIFF AUTOMATED, Additional followed-up results: 3 05/30/2025 8:20 AM CDT Office Visit [place] [address] [address] [facility] [address] [place] [address] Bret Fraser MD Physical 05/30/2025 Orders Only [place] [address] [address] [facility] [address] [place] [address] Bret Fraser MD 05/30/2025 Travel from Last 3 Months Immunizations Immunization Administration Dates Next Due Fluzone (IIV3, Trivalent, 0. 5 ML Prefilled Syringe) 08/30/2024 Influenza (Generic) 10/06/2021,08/27/2014 Influenza Adult (Generic) 08/10/2022,09/02/2015 MODERNA COVID-19 (12+) MRNA, LNP-S, PF, 100 MCG/ 0.5 ML DOSE 01/30/2021,01/02/2021,12/05/2020 PFIZER COVID-19 (NEAL CAP), MRNA, LNP-S, PF, 30 MCG/0.3 ML FAWN-SUCROSE, IM 03/15/2022 PFIZER COVID-19 (ORIGINAL FO RMULATION, PURPLE CAP) mRNA, LNP-S, PF, 30 MCG/0.3 ML DOSE 08/27/2021 Pneumococcal (Prevnar 20) 05/30/2025 Shingrix 04/22/2022,02/07/2022 Td, Adsorbed, Preservative F ree, [...] than three times a week 05/30/2025 Attends Worship Services Not on file 05/30 Active Member [...] any time in the past 12 m [facility], were you homeless or living in a senior care (including now)? No 05/30/2025 Comments No Sex and Gender Information Value Date Recorded Sex Assigned at Not on file Legal Sex Female 7:36 PM CDT Gender Identity Not on file Sexual Orientation Not on file Last Filed Vital Signs Vital Sign Reading Time Taken Comments Blood Pressure 127/86 05/30/2025 8:28 AM CDT Pulse 67 05/30/2025 8:28 AM CDT Temperature 36.2 C (97.2 F) 05/30/2025 8:28 AM CDT Respiratory Rate 16 05/30/2025 8:28 AM CDT Oxygen Saturation 98% 05/30/2025 8:28 AM CDT Inhaled Oxygen Concentration - - Weight 73 kg (161 lb) 05/30/2025 8:28 AM CDT Height 167.6 cm (5' 6) 05/30/2025 8:28 AM CDT Body Mass Index 25.99 05/30/2025 8:28 AM CDT Plan of Treatment Upcoming Encounters Date Type Department Care Team (Late st Contact Info) Description 12/01/2025 8:40 AM ON SITE MANAGER Office Visit [facility] [place] [address] [address] [address] [place] [address] Bret Fraser MD [address] [facility] [address] [place] [address] Health Maintenance Due Date Last Done Comments Cervical Cancer Screening Pap Smear (Age 30 to 64) Every 3 Years 1965 COVID-19 Vaccine ( season) 2025 03/15/2022, 08/27/2021, 01/30/2021, Additional history exists Influenza Adult (#1) 2025 08/30/2024, 08/10/2022, 10/06/2021, Additional history exists Annual Physical 05/30/2026 05/30/2025, 0806/2024, 05/29/2023, Additional history exists Cervical Cancer Screening Pap with HPV Testing (Age 30 to 64) Every 5 Years 08/26/2029 08/26/2024, 02/11/2020 Cervical Cancer Screening with HPV 08/26/2029 Colorectal Cancer Screening Colonoscopy (10 Years) 05/18/2031 05/18/2021 DTaP, Tdap and Td Vaccines (2 - Td or Tdap) 10/31/2032 10/31/2022, 02/01/2016 Zoster Vaccines Completed 04/22/2022, 02/07/2022 Hepatitis C Completed 05/31/2022 PHQ-2 (Physician Ellerbe) Completed 05/30/2025 Pneumococcal Vaccine: 50+ Years Completed 05/30/2025 Meningococcal B Vaccine Aged Out No l onger eligible based on patient's age to complete this topic Meningococcal Vaccine Aged Out No marty trisha eligible based on patient's age to complete this topic RSV Immunizations Under 20 Months Aged Out No longer eligible based on patient's age to complete this topic Procedures Procedure Name Priority Date/Time Associated Diagnosis Comments HEMOGLOBIN, GLYCOSYLATED Routine 05/30/2025 10:02 AM CDT TSH W/REFLEX Routine 05/30/2025 10:02 AM CDT CA 15 3, SERUM Routine 05/30/2025 10:02 AM CDT CBC W/DIFF AUTOMATED Routine 05/30/2025 10:02 AM CDT COMPREHENSIVE METABOLIC PANEL Routine 05/30/2025 10:02 AM CDT LIPID PANEL Routine 05/30/2025 10:02 AM CDT COLLECTION VENOUS BLOOD VENIPUNCTURE Routine 05/30/2025 8:44 AM CDT Annual physical exam General medical exam Drug therapy URINALYSIS AUTO DIP Routine 05/30/2025 Annual physical exam General medical exam Drug therapy OUTSIDE CYTOPATH CERV/VAG INTERPRET (PAP) 08/26/2024 HEPATITIS C ANTIBODY Routine 05/31/2022 11:01 AM CDT Annual physical exam Encounter for medical examination to establish care General medical exam Encounter for hepatitis C screening test for low risk patient COLONOSCOPY GENERIC (SCAN ORDER) 05/18/2021 from Last 3 Months or Most Recently Relevant to Health Maintenance Results * CA 15 3, SERUM (05/30/2025 10:02 AM CDT) CA 15 3 S/P/B 10 <32 U/mL [facility] Comment: This test was performed using the Siemens ([employer]) chemiluminescent method. Values obtained from different assay methods cannot be used interchangeably. CA 15-3 levels, regardless of value, should not be interpreted as absolute evidence of the presence or absence of disease. 05/30/2025 10:0 2 AM CDT 05/30/2025 10:04 AM CDT Narrative [facility] [facility] - 05/31/2025 4:17 AM CDT FASTING:NO FASTING: NO Resulting Agency Comment Performing Organization Information: Site ID: [place] Name: [facility] Address: [address] [place] [address] [place] [address] Director: Rizwan Michelle MD Bret Fraser MD LABORATORY Final Result [facility] [address] [address], [place] * TSH W/REFLEX (05/30/2025 10:02 AM CDT) TSH 2.15 0.40 - 4.50 mIU/L [facility] 05/30/2025 10:0 2 AM CDT 05/30/2025 10:04 AM CDT Narrative [facility] [facility] - 05/31/2025 4:17 AM CDT FASTING:NO FASTING: NO Resulting Agency Comment Performing Organization Information: Site ID: [id number] Name: [facility] Address: [address] [place] [id number] Director: Rizwan Michelle Bret Fraser MD LABORATORY Final Result Performing Organization Address City/[facility] Co de Phone Number [facility] [place] [facility] [place], [place] [id number] [place] [phone], [place] * HEMOGLOBIN, GLYCOSYLATED (05/30/2025 10:02 AM CDT) Pathologist [facility] HGB A1C 5.5 <5.7 % of total Hgb [facility] [place] Comment: For the purpose of screening for the presence of diabetes: <5.7% Consistent with the absence of diabetes 5.7-6.4% Consistent with increased risk for diabetes (prediabetes) > or =6.5% Consistent with diabetes This assay result is consistent with a decreased risk of diabetes. Currently, no consensus exists regarding use of hemoglobin A1c for diagnosis of diabetes in children. According to [place] Diabetes Association (ADA) guidelines, hemoglobin A1c <7.0% represents optimal control in non- diabetic patients. Different metrics may apply to specific patient populations. Standards of Medical Care in Diabetes(ADA). 05/30/2025 10:0 2 AM CDT 05/30/2025 10:04 AM CDT Narrative [facility] [facility] - 05/31/2025 4:17 AM CDT FASTING:NO FASTING: NO Resulting Agency Comment Performing Organization Information: Site ID: [id number] Name: [facility] Address: [address] [place] [address] Director: Rizwan Michelle Bret Fraser MD LABORATORY Final Result [facility] [place] [address] [place] [address], * COMPREHENSIVE METABOLIC PANEL (05/30/2025 10:02 AM CDT) GLUCOSE 88 65 - 139 mg/dL [place] Comment: Non-fasting reference interval BUN 16 7 - 25 mg/dL [place] CREATININE S/P/B 0.96 0.50 - 1.03 mg/dL [place] GFR ESTIMATE 68 > OR = 60 mL/min/1. 73m2 [place] BUN CREATININE RATIO SEE NOTE: 6 - 22 (calc) [place] Comment: Not Reported: BUN and Creatinine are within reference range. SODIUM S/P/B 137 135 - 146 mmol/L [place] POTASSIUM S/P/B 4.3 3.5 - 5.3 mmol/L [place] CHLORIDE S/P/B 100 98 - 110 mmol/L [place] CO2 30 20 - 32 mmol/L [place] CALCIUM S/P/B 10.0 8.6 - 10.4 mg/dL [place] TOTAL PROTEIN S/P/B 8.0 6.1 - 8.1 g/dL [place] ALBUMIN S/P/B 4.9 3.6 - 5.1 g/dL [place] GLOBULIN 3.1 1.9 - 3.7 g/dL (calc) [place] ALBUMIN/GLOBULIN RATIO 1.6 1.0 - 2.5 (calc) [place] BILIRUBIN TOTAL S/P/B 0.6 0.2 - 1.2 mg/dL [facility] LedgerX[place], [place] ALKALINE PHOSPHATASE S/P/B 53 37 - 153 U/L [place] AST 26 10 - 35 U/L [place] ALT 15 6 - 29 U/L [place] 05/30/2025 10:0 2 AM CDT 05/30/2025 10:04 AM CDT Narrative [facility] [place] [facility] - 05/31/2025 4:17 AM CDT FASTING:NO FASTING: NO Resulting Agency Comment Performing Organization Information: Site ID: [id number] Name: [facility] Address: [facility] [place] [address] Director: Rizwan Michelle Bret Fraser MD LABORATORY Final Result [facility] [place] [facility] [address] [address] * (ABNORMAL) LIPID PANEL (05/30/2025 10:02 AM CDT) CHOLESTEROL 236(H) <200 mg/dL [place] HDL 68 > OR = 50 mg/dL [place] TRIGLYCERIDES 86 <150 mg/dL [place] LDL (CALCULATED) 149(H) mg/dL (calc) [place] Comment: Reference range: <100 Desirable range <100 mg/dL for primary prevention; <70 mg/dL for patients with CHD or diabetic patients with > or = 2 CHD risk factors. LDL-C is now calculated using the Gaston calculation, which is a validated novel method providing better accuracy than the Friedewald equation in the estimation of LDL-C. Messi SS et al. KIA. 2013;310(19): 2968-3663 (http://education.[employer]/faq/MKG064) CHOL/HDL RATIO 3.5 <5.0 (calc) [place] NON HDL CHOLESTEROL 168(H) <130 mg/dL (calc) [place] Comment: For patients with diabetes plus 1 major ASCVD risk factor, treating to a non-HDL-C goal of <100 mg/dL (LDL-C of <70 mg/dL) is considered a therapeutic option. 05/30/2025 10:0 2 AM CDT 05/30/2025 10:04 AM CDT Narrative [facility] [facility] - 05/31/2025 4:17 AM CDT FASTING:NO FASTING: NO Resulting Agency Comment Performing Organization Information: Site ID: [id number] Name: [facility] Address: [facility] [place] [address] Director: Rizwan Michelle Bret Fraser MD LABORATORY Final Result [facility] [place] [address] [place] [phone], * CBC W/DIFF AUTOMATED (05/30/2025 10:02 AM CDT) WBC 4.1 3.8 - 10.8 Thousand/u L [place] RBC 4.53 3.80 - 5.10 Million/uL [place] HGB 14.2 11.7 - 15.5 g/dL [place] HCT 43.4 35.0 - 45.0 % [place] MCV 95.8 80.0 - 100.0 fL [place] MCH 31.3 27.0 - 33.0 pg [place] MCHC 32.7 32.0 - 36.0 g/dL [place] Comment: For adults, a slight decrease in the calculated MCHC value (in the range of 30 to 32 g/dL) is most likely not clinically significant; however, it should be interpreted with caution in correlation with other red cell parameters and the patient's clinical condition. RDW 12.2 11.0 - 15.0 % [place] PLT 264 140 - 400 Thousand/u L [place] MPV 10.6 7.5 - 12.5 fL [place] ABS. NEUTROPHILS 2,198 1,500 - 7,800 cells/uL [facility] DIAGNOST[place]LA[place] ABS. LYMPHOCYTES 1,447 850 - 3,900 cells/uL [facility] DIAGNOSTICSLAWR[place], [place] ABS. MONOCYTES 316 200 - 950 cells/uL [facility] DIAGNOSTICSLAWR[place], [place] ABS. EOSINOPHILS 90 15 - 500 cells/uL [place] ABS. BASOPHILS 49 0 - 200 cells/uL [facility] Led[place]LA[place], [place] SEG NEUTROPHILS 53.6 % [facility]AGNOSTICSLAWR[facility], [place] LYMPHOCYTES 35.3 % [facility] [place] MONOCYTES 7.7 % [place] EOSINOPHILS 2.2 % [facility] [place] BASOPHILS 1.2 % [facility] 05/30/2025 10:0 2 AM CDT 05/30/2025 10:04 AM CDT Narrative [facility] [facility] - 05/31/2025 4:17 AM CDT FASTING:NO FASTING: NO Resulting Agency Comment Performing Organization Information: Site ID: Name: [facility] Address: [address] [place] [id number] Director: Rizwan Michelle Bret Fraser MD LABORATORY Final Result [facility] [place] [facility] [address] [address], * (ABNORMAL) URINALYSIS AUTO DIP (05/30/2025) COLOR (U) YELLOW YELLOW [address], [place] TRANSPARENCY CLEAR CLEAR MG-[address], [place] GLUCOSE (U) NEGATIVE NEGATIVE MG/DL MG-[address], [place] BILIRUBIN (U) NEGATIVE NEGATIVE MG-[address], [place] KETONES MG/DL (U) NEGATIVE NEGATIVE MG/DL MG-[address], [place] SPECIFIC GRAVITY (U) 1.005 1.001 - 1.035 MG[address], [place] BLOOD (U) TRACE (Non Hemolyzed, Intact)(A) NEGATIVE MG-[address], [place] U PH 6.0 5.0 - 9.0 MG-[address], [place] PROTEIN (U) NEGATIVE NEGATIVE mg/dL MG-[address], [place] UROBILINOGEN 0.2 0.2 - 1.0 EU/dL = mg/dL MG-[address], [facility] NITRITES NEGATIVE NEGATIVE MG/DL MG-[address], [facility] LEUKOCYTES (U) TRACE(A) NEGATIVE MG-[address], [facility] URINE SPECIMEN OBTAINED BY CLEAN CATCH PROCEDURE / Unknown 05/30/2025 Bret Fraser MD URINE ORDERABLES Final Result Performing Organization Address City/[facility] Co de Phone Number MG-[address], [facility] [address] [place] [address], [place] [phone] * PAP SMEAR WITH HPV (08/26/2024) 08/26/2024 [facility] Scanned SCANNING Final Resu lt * HEPATITIS C ANTIBODY (05/31/2022 11:01 AM CDT) HEPATITIS C AB NON-REACTI VE NON-REACT LARISSA 05/31/2022 8:16 PM CDT [facility] Comment: ANTIBODIES TO HCV NOT DETECTED. DOES NOT EXCLUDE THE POSSIBILITY OF EXPOSURE TO HCV. 05/31/2022 11:0 1 AM CDT Bret Fraser MD LABORATORY Final Result [facility] [address] [place] [address], [place] [phone] * COLONOSCOPY GENERIC (05/18/2021) 05/18/2021 Narrative 05/18/2021 Ordered by an unspecified provider. us Documents Scanned SCANNING Final Result from Last 3 Months or Most Recently Relevant to Health Maintenance Insurance [facility] Care Teams Playback Operator Relationship Specialty Start Date End Date Bret Fraser MD [address] [facility] [address] [place] [address] PCP - General INTERNAL MEDICINE 05/31/22
--- OUTSIDE RECORDS SUMMARY | 2025-07-29 13:43 | XMS_ITS | Encounter Summary ---
Author Organization [place] [facility] Address [address] [place] [address] Care Team Providers Care Plumbing Hardware Assembler Name Role Phone Bret Fraser MD Primary Care Provider Encounter Details Date Type Department Care Team (Latest Contact Info) Description 06/09/2009 Outpatient Historical [facility] Dflt Department Kady Jones MD [address] [place] [address] [place] [address] Encounter for Antineoplastic Chemotherapy Social History Tobacco Use Types Packs/Day Years Used Date Smoking Tobacco: Never Alcohol Use Standard Drinks/Week Comments Yes 0 (1 standard drink = 0.6 oz pur e alcohol) rare Comments No Sex and Gender Information Value Date Recorded Sex Assigned at Not on file Legal Sex Female 5:01 AM TECHNICAL SUPPORT INTERNSHIP Gender Identity Not on file Sexual Orientation Not on file documented as of this encounter Plan of Treatment Not on file documented as of this encounter Visit Diagnoses Diagnosis Encounter for antineoplastic chemotherapy documented in this encounter Care Teams Plumbing Hardware Assembler Relationship Specialty Start Date End Date Bret Fraser MD [address] [place] [address] PCP - General Internal Medicine 05/28/24 documented as of this encounter
--- OUTSIDE RECORDS SUMMARY | 2025-07-29 13:43 | XMS_ITS | Encounter Summary ---
Author Organization [facility] Address [address] [place] [address] Care Team Providers Care Advertising Account Manager Name Role Phone Bret Fraser MD Primary Care Provider [phone] Encounter Details Date Type Department Care Team (Latest Contact Info) Description 02/20/2003 Outpatient Historical HIS PATIENT IN A BED Naida Wall MD [address] [place] [address] Palmer Argueta MD [address] [facility] [address] [place] [address] PREG COMPL NEC-ANTEPART (Primary Dx) Social History Tobacco Use Types Packs/Day Years Used Date Smoking Tobacco: Never Assessed Comments Unknown Sex and Gender Information Value Date Recorded Sex Assigned at Not on file Legal Sex Female 5:01 AM SCREW MACHINE HAND Gender Identity Not on file Sexual Orientation Not on file documented as of this encounter Plan of Treatment Not on file documented as of this encounter Visit Diagnoses Diagnosis Other specified complication, antepartum(646.83)- Primary Other specified complication, antepartum documented in this encounter Care Teams Advertising Account Manager Relationship Specialty Start Date End Date Bret Fraser MD [address] [place] [address] PCP - General Internal Medicine 05/28/24 documented as of this encounter
--- OUTSIDE RECORDS SUMMARY | 2025-07-29 13:43 | XMS_ITS | Encounter Summary ---
Author Organization [employer] Address [address] [place] [address] Care Team Providers Care Mems Process Engineer Name Role Phone Bret Fraser MD Primary Care Provider [phone] Encounter Details Date Type Department Care Team (Late st Contact Info) Description 02/12/2009 Outpatient Historical [facility], [address] Kady Jones MD [address] [place] [address] [place] [address] Malignant Neoplasm of Breast (Female), Unspecified Site (CMS/HCC) Social History Tobacco Use Types Packs/Day Years Used Date Smoking Tobacco: Never Assessed Comments Unknown Sex and Gender Information Value Date Recorded Sex Assigned at Not on file Legal Sex Female 5:01 AM ELECTRICIAN ELEVATOR MAINTENANCE Gender Identity Not on file Sexual Orientation Not on file documented as of this encounter Plan of Treatment Not on file documented as of this encounter Procedures Procedure Name Priority Date/Time Associated Diagnosis Comments CANCER ANTIGEN 27-29 Routine 02/12/2009 8:37 PM CDT COMPREHENSIVE METABOLIC PANEL Routine 02/12/2009 8:37 PM CDT documented in this encounter Results * CANCER ANTIGEN 27-29 (02/12/2009 8:37 PM CDT) CA 27-29 16 <38 U/mL [facility] Comment: THIS TEST WAS PERFORMED USING THE SIEMENS (PERI) CHEMILUMINESCENT METHOD. VALUES OBTAINED FROM DIFFERENT ASSAY METHODS CANNOT BE USED INTERCHANGEABLY. CA27.29 LEVELS, REGARDLESS OF VALUE, SHOULD NOT BE INTERPRETED ABSOLUTE EVIDENCE OF THE PRESENCE OR ABSENCE OF DISEASE. Lab test performed by: [employer] [address] [place] [address] JOSEPH CH MDThis test was performed using the Row44/Peri CA 27.29 Assay. Blood specimen (specimen) 02/12/2009 8:37 PM CDT 02/12/2009 8:47 PM CDT Kady Jones MD CHEMISTRY ORDERABLES COM Fi nal Result INTERFACE SYSTEM Refer to clinic/hospital department [facility] CLIA# [id number] [address] [place] [address] * (ABNORMAL) COMPREHENSIVE METABOLIC PANEL (02/12/2009 8:37 PM CDT) BUN 17 6 - 20 mg/dL [facility] CALCIUM 9.5 8.6 - 10.2 mg/dL [facility] CHLORIDE 103 96 - 108 mmol/L [facility] ALBUMIN 4.4 3.4 - 4.8 g/dL [facility] CREATININE 0.75 0.51 - 0.95 mg/dL [facility] SODIUM 138 135 - 145 mmol/L [facility] ALT 84(H) 0 - 31 U/L [facility] ALKALINE PHOSPHATASE 56 35 - 104 U/L [facility] BILIRUBIN TOTAL 0.2 0.2 - 1.0 mg/dL [facility] CO2 27 22 - 30 mmol/L [facility] TOTAL PROTEIN 7.0 6.3 - 8.6 g/dL [facility] POTASSIUM 4.5 3.5 - 4.9 mmol/L [facility] GLUCOSE 88 65 - 99 mg/dL [facility] AST 50(H) 12 - 32 U/L [facility] GFR, >60 >=60 mL/min/1.7 sq meter [facility] GFR >60 >=60 mL/min/1.7 sq meter [facility] Comment: Modification of Diet in Renal Disease (MDRD) study formula. Estimated GFR rate interpretative information for both Americans and non- Americans is available on the [facility] Intranet at: [email or web address] Select: Lab Policies and Procedures Select: Reference Ranges - GFR Blood specimen (specimen) 02/12/2009 8:37 PM CDT 02/12/2009 8:37 PM CDT Kday Jones MD CHEMISTRY ORDERABLES Edited INTERFACE SYSTEM Refer to clinic/hospital department [facility] CLIA# [id number] [address] [place] [address] documented in this encounter Visit Diagnoses Diagnosis Malignant neoplasm of breast (female), unspecified site documented in this encounter Care Teams Mems Process Engineer Relationship Specialty Start Date End Date Bret Fraser MD [address] [place] [address] PCP - General Internal Medicine 05/28/24 documented as of this encounter
--- OUTSIDE RECORDS SUMMARY | 2025-07-29 13:43 | XMS_ITS | Encounter Summary ---
Author Organization [facility] Address [address] [place] [address] Care Team Providers Care Sole Skiver Name Role Phone Bret Fraser MD Primary Care Provider [phone] Encounter Details Date Type Department Care Team (Late st Contact Info) Description 12/11/2023 MyChart Message Enc [address] [address] Bret Fraser MD [address] [place] [address] sinus infection Social History Tobacco Use Types [...] st Contact Info) Description 12/01/2025 8:40 AM LOADING DOCK HELPER Office Visit [facility] [address] [place] [address] Bret Fraser MD [address] [address] documented as of this encounter Visit Diagnoses Not on filedocumented in this encounter Additional Health Concerns Assessment Noted Time PHQ-9 Depression Total Score: 2 11/29/19 24 7:52 AM LOADING DOCK HELPER documented as of this encounter Care Teams Sole Skiver Relationship Specialty Start Date End Date Bret Fraser MD [address] [address] PCP - General INTERNAL MEDICINE 05/31/22 documented as of this encounter
--- OUTSIDE RECORDS SUMMARY | 2025-07-29 13:43 | XMS_ITS | Clinical Summary ---
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 Gender Identity Not on file Sexual Orientation Not on file Plan of Treatment Health Maintenance Due Date Last Done Comments Hepatitis C Virus (HCV) Screening 1965 TdaP Immunization 1965 Hepatitis B Immunization (1 of 3 - 19+ 3-dose series) 1984 Pap Smear 1986 Cervical Cancer Screening (CCS) 1995 HPV/Cotest 1995 Cologuard 2010 Colonoscopy 2010 Colorectal Cancer Screening 2010 Immunochemical Fecal Occult Blood 2010 Pneumococcal Immunization (5 0+ years) (1 of 1 - PCV) 2015 Zoster Immunization (1 of 2) 2015 Influenza Immunization (#1) 06/23/202508/23, 08/27/2014 SARS-COV-2 Immunization ( season) 2025 Respiratory Syncytial Virus (RSV) Immunization (Adult) (1 - 1-dose 75+ series) 2040 DTaP/Tdap/Td Immunization Discontinued 02/01/2016 Human Papillomavirus (HPV) Immunization Aged Out No longer eligible based on patient's age to complete this topic Meningococcal Immunization (ACWY) Aged Out No longer eligible based on patient's age to complete this topic Rotavirus Immunization Aged Out No lo nger eligible based on patient's age to complete this topic
--- OUTSIDE RECORDS SUMMARY | 2025-07-29 13:43 | XMS_ITS | Encounter Summary ---
Author Organization [facility] Address 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
--- OUTSIDE RECORDS SUMMARY | 2025-07-29 13:43 | XMS_ITS | Encounter Summary ---
Author Organization [employer] Address [address] [place] [address] Care Team Providers Care Mechanical Equipment Test Engineer Name Role Phone Bret Fraser MD Primary Care Provider [phone] Encounter Details Date Type Department Care Team (Late st Contact Info) Description 03/27/2009 Outpatient Historical [facility], [address] Kady Jones MD [address] [place] [address] [place] [address] Malignant Neoplasm of Breast (Female), Unspecified Site (CMS/HCC) Social History Tobacco Use Types Packs/Day Years Used Date Smoking Tobacco: Never Assessed Comments Unknown Sex and Gender Information Value Date Recorded Sex Assigned at Not on file 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 VALUES OBTAINED FROM DIFFERENT ASSAY METHODS CANNOT BE USED INTERCHANGEABLY. CA27.29 LEVELS, REGARDLESS OF VALUE, SHOULD NOT BE INTERPRETED ABSOLUTE EVIDENCE OF THE PRESENCE OR ABSENCE OF DISEASE. Lab test performed by: [email or web address] [id number] [facility] [place] [address] JOSEPH CH MDThis test was performed using the [employer].fr/Peri CA 27.29 Assay. 03/27/2009 8:57 PM CDT 03/27/2009 8:59 PM CDT Kady Jones MD CHEMISTRY ORDERABLES COM Fi nal Result INTERFACE SYSTEM Refer to clinic/hospital department [facility] CLIA# [id number] [address] [facility] [place] [address] * (ABNORMAL) COMPREHENSIVE METABOLIC PANEL (03/27/2009 8:57 PM CDT) CO2 27 22 - 30 mmol/L [facility] BILIRUBIN TOTAL 0.3 0.2 - 1.0 mg/dL [facility] POTASSIUM 4.2 3.5 - 4.9 mmol/L [facility] TOTAL PROTEIN 7.0 6.3 - 8.6 g/dL [facility] GLUCOSE 81 65 - 99 mg/dL [facility] AST 38(H) 12 - 32 U/L [facility] BUN 13 6 - 20 mg/dL [facility] CALCIUM 10.0 8.6 - 10.2 mg/dL [facility] ALBUMIN 4.4 3.4 - 4.8 g/dL [facility] CHLORIDE 103 96 - 108 mmol/L [facility] CREATININE 0.80 0.51 - 0.95 mg/dL [facility] ALT 38(H) 0 - 31 U/L [facility] SODIUM 138 135 - 145 mmol/L [facility] ALKALINE PHOSPHATASE 69 35 - 104 U/L [facility] GFR, >60 >=60 mL/min/1.7 sq meter [facility] GFR >60 >=60 mL/min/1.7 sq meter [facility] Comment: Modification of Diet in Renal Disease (MDRD) study formula. Estimated GFR rate interpretative information for both Americans and non- Americans is available on the [facility] Intranet at: [email or web address] Select: Lab Policies and Procedures Select: Reference Ranges - GFR 03/27/2009 8:57 PM CDT 03/27/2009 8:57 PM CDT Kady Jones MD CHEMISTRY ORDERABLES Edited INTERFACE SYSTEM Refer to clinic/hospital department [facility] CLIA# [id number] [address] [place] [address] documented in this encounter Visit Diagnoses Diagnosis Malignant neoplasm of breast (female), unspecified site documented in this encounter Care Teams Mechanical Equipment Test Engineer Relationship Specialty Start Date End Date Bret Fraser MD [address] [place] [address] PCP - General Internal Medicine 05/28/24 documented as of this encounter
--- OUTSIDE RECORDS SUMMARY | 2025-07-29 13:43 | XMS_ITS | Clinical Summary ---
Author Organization [facility] Administrative Offices Address [address] [place] [address] Care Team Providers Care Seasoner Hand Name Role Phone Bret Fraser MD Primary Care Provider [phone] Allergies Active Allergy Reactions Criticality Noted Date [...] [address] [place] [address] Other: VENECIA Morales Problem Noted Date Diagnosed Date History of left breast cancer 04/17/2009 Overview (06/04/2025): 08/13/08 LEFT breast cancer IDC T1c Ni+ M0 ER 21% [place]- HER2 4.4 BRCA 1/2 negative 08/27/08 LEFT LUMP and slnd 09/26/08-11/27/08 AC x 4 and Taxotere and Herceptin until November 2009 02/26/09 b/l mastectomy 04/03/09 TMX for 5 years. Assessment & Plan (06/04/2025 10:22 AM CDT): She remained stable clinically with no evidence of disease recurrence. I reviewed her note normal tumor marker from few weeks ago, performed by her PCP. Since her diagnosis was in 2007 and she completed 5 years of tamoxifen in 2013, she may follow-up with her primary care physician moving forward. Advised her to contact us in the interim for suspicious skin lesions on the breast implants or nipple discharge, bone pains, persistent cough, unexplained weight loss. She verbalized understanding of today's discussion, was satisfied with the office visit, and had no further questions. I did not give her a follow-up appointment in 1 year and she is okay with it. Assessment & Plan (05/28/2013 11:40 AM CDT): 5 years out On TMX 4 years Taking vit D monthly - due now Green smoothies now. Assessment & Plan (05/30/2012 10:52 AM CDT): 4 years out On TMX 3 years No periods since chenmo - will stay on TMX - estradiol PREmeno last year Estrace cream ROV 1 year Assessment & Plan (12/12/2011 2:13 PM TEXT TRANSCRIBER): 3 1/2 years out On TMX Left neck nodes - tiny - gone now HAs chronic - doesn't want scan ROV 6 months then yearly Assessment & Plan (06/13/2011 11:09 AM CDT): Will be 3 yrs out in Jul Has had spotting; still on TMX [place] [facility] 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 - wanted xanax - gave 60 Saturday June 18, 2011 On AI until 2013 ROV 6 months Assessment & Plan (03/14/2011 4:07 PM CDT): 2 1/2 yr out Ovarian cyst - u/s next week 2 weeks ago abd pain; on Nexium, crampy after meals b/l abd U/s RUQ today in [place] On TMX - will stop now and give AI LMP February 2010; hot flashes VIt D 44 in December - recheck Didn't get brain MRI Discussed AI - FEMARA script B/l solitary inguinal LNs; less then 1cm - await pelivc u/s PET if anything is abnormal ROV 3 momths Assessment & Plan (09/09/2010 4:22 PM TEXT TRANSCRIBER): 2 yrs out On TMX Port out [place] LMP spotting in February; ultrasound negative Sep 2008 otherwise TMX until March then FEMARA if no periods Seborrheic 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 under LEFT materials supervisor; no nodules or abnormalities ROV 3 weeks herceptin; 6 weeks MD Assessment & Plan (09/30/2009 2:11 PM TEXT TRANSCRIBER): 8-9 days of pain under arms; has been carrying son who is in cast Nothing on exam Keep regular appt Assessment & Plan (09/04/2009 2:32 PM TEXT TRANSCRIBER): Chest cold; on Abx TMX with hot [...] Encounters Date Type Department Care Team Description 06/11/2025 External Device Data STL ABSTRACTION Provider, Abstract 06/10/2025 External Device Data STL ABSTRACTION Provider, Abstract 06/10/2025 External Device Data STL ABSTRACTION Provider, Abstract 06/04/2025 10:00 AM CDT Initial consult [facility] Oncology and Hematology [facility] [address] [place] [address] Latanya Hoskins MD Naate, Nueki, MD History of left breast cancer (Primary Dx) 05/28/2025 External Device Data STL ABSTRACTION Provider, Abstract 05/07/2025 External Device Data STL ABSTRACTION Provider, Abstract 05/06/2025 External Device Data STL ABSTRACTION Provider, Abstract [...] on file Legal Sex Female 5:01 AM TEXT TRANSCRIBER Gender Identity Not on file Sexual Orientation Not on file Occupation Industry Job Start Date Job End Date Not on file Not on file Not on file Not on file Last Filed Vital Signs Vital Sign Reading Time Taken Comments Blood Pressure 115/67 06/04/2025 9:48 AM CDT Pulse 76 06/04/2025 9:48 AM CDT Temperature 36.7 C (98 F) 06/04/2025 9:48 AM CDT Respiratory Rate 18 06/04/2025 9:48 AM CDT Oxygen Saturation 97% 06/04/2025 9:48 AM CDT Inhaled Oxygen Concentration - - Weight 73.3 kg (161 lb 11.2 oz) 06/04/2025 9:48 AM CDT Height 165.1 cm (5' 5) 06/04/2025 9:48 AM CDT Body Mass Index 26.91 06/04/2025 9:48 AM CDT Plan of Treatment Health Maintenance Due Date Last Done Comments Pre-Diabetes and Diabetes Screening 1965 HEPATITIS B VACCINES (1 of 3 - 19+ 3-dose series) 1984 HPV/Cotest (21-29) 1986 CERVICAL CANCER SCREENING 1995 HPV/Cotest (30-65) 1995 PAP SMEAR 1995 BREAST CANCER SCREENING 2005 FIT-DNA Q 3 years 2010 FIT/FOBT Q 1 year 2010 Flex Sig/CT Colonography Q 5 years 2010 INFLUENZA VACCINE (#1) 2025 08/30/2024, 2013 COVID-19 Vaccine (2024-2 6 season) 2025 03/15/2022, 08/27/2021, 01/30/2021, Additional history exists COLORECTAL SCREENING 05/18/2031 05/18/2021, 05/18/2021, 05/18/2021 Colorectal Cancer Screening 05/18/2031 DTAP/TDAP/TD VACCINES (2 - T d or Tdap) 10/31/2032 10/31/2022, 02/01/2016 ZOSTER VACCINE Completed 04/22/2022, 02/07/2022 Insurance [facility] [employer] [place] [id number] Care Teams Seasoner Hand Relationship Specialty Start Date End Date Bret Fraser MD [address] [place] [address] PCP - General Internal Medicine 05/28/24
--- OUTSIDE RECORDS SUMMARY | 2025-07-29 13:43 | XMS_ITS | Clinical Summary ---
Author Organization [facility] Address [address] [place] [address] Care Team Providers Care Headstart Teacher Name Role Phone Tacos Ochoa MD Primary Care Provider [phone] Allergies Active Allergy Reactions Criticality Noted Date [...] (03/04/2021): Added automatically from request for surgery [id number] Breast cancer 04/17/2009 Overview (08/20/2021): 08/13/08 LEFT breast cancer IDC T1c Ni+ M0 ER 21% [place]- HER2 4.4 BRCA 1/2 negative 08/27/08 LEFT [...] BREAST RECONSTRUCTION 02/20/2009 - 03/22/2009 [facility] Medical History Medical History Date Comments [...] on file Legal Sex Female 2:51 AM SENIOR CORPORATE STRATEGY MANAGER Gender Identity Not on file Sexual Orientation Not on file Obstetrics History Last Filed Vital Signs Vital Sign Reading Time Taken Comments Blood Pressure 134/75 09/28/2021 12:32 PM SENIOR CORPORATE STRATEGY MANAGER Pulse 82 09/28/2021 12:32 PM SENIOR CORPORATE STRATEGY MANAGER Temperature 36.9 C (98.4 F) 08/16/2021 9:32 AM CDT Respiratory Rate 16 08/16/2021 9:32 AM CDT Oxygen Saturation 98% 08/16/2021 9:32 AM CDT Inhaled Oxygen Concentration - - Weight 72.6 kg (160 lb) 09/28/2021 12:32 PM SENIOR CORPORATE STRATEGY MANAGER Height 167.6 cm (5' 6) 09/28/2021 12:32 PM SENIOR CORPORATE STRATEGY MANAGER Body Mass Index 25.82 09/28/2021 12:32 PM SENIOR CORPORATE STRATEGY MANAGER Plan of Treatment Scheduled Procedures Name Priority Associated Diagnoses Date/Ti me COLONOSCOPY Encounter for screening colonoscopy Health Maintenance Due Date Last Done Comments Cervical Cancer Screening 1965 Depression Screening 1965 Hepatitis C Screening 1965 Hepatitis B Screening 1983 Zoster Vaccine (1 of 2) 2015 DTaP/Tdap/Td Vaccine (1 - Tdap) 02/02/2016 02/01/2016 Regular Well Visit/Exam 18-64 09/28/2022 09/28/2021 Covid-19 Vaccine (3 - season) 2025 01/30/2021, 01/02/2021 Influenza Vaccine (#1) 2025 5, 08/27/2014 Colon Cancer Screening-Colonoscopy 05/18/2031 05/18/2021 [...] Female Attending MD: Pietro Peguero M.D. Room: [facility] ENDOSCOPY ROOM 8 Note Status: Finalized Procedure: [...] passed under direct vision.The CF HQ [id number] endoscope was introducedthrough the anus and advanced to the terminal ileum. The colonoscopy was performed without difficulty. The patient tolerated the procedure well. The qualityof the bowel preparation was evaluated using the BBPS ([place] Bowel Preparation Scale) with scores of:Right Colon [...] During normal business hours - [facility] [place]: [phone] After hours, evening, nights, weekends and holidays- Please call the hospital resistance welding machine operator at and ask for the GI fellow environment artist. Attending Participation: I personally performed the entire procedure. Electronically signed by Pietro Peguero MD Pietro Peguero M.D. 05/18/2021 3:47:59 PM . Number of Addenda: 0 Note Initiated On: 05/18/2021 3:05 PM Recognized by the [employer] for promoting quality in endoscopy Pietro Peguero MD ENDOSCOPY PROCEDURES Final Result from Last 3 Months or Most Recently Relevant to Health Maintenance Insurance [facility] Care Teams Headstart Teacher Relationship Specialty Start Date End Date Tacos Ochoa MD PCP - General 06/24/20
--- OUTSIDE RECORDS SUMMARY | 2025-07-29 13:43 | XMS_ITS | Encounter Summary ---
Author Organization [facility] Address [address] [place] [address] Care Team Providers Care Qm Nurse Name Role Phone Bret Fraser MD Primary Care Provider [phone] Encounter Details Date Type Department Care Team (Late st Contact Info) Description 12/12/2002 Outpatient Historical [facility] M[facility] and Ground Floor [facility] [address] [place] [address] Palmer Argueta MD [address] [facility] [address] [place] [address] Social History Tobacco Use Types Packs/Day Years Used Date Smoking Tobacco: Never Assessed Comments Unknown Sex and Gender Information Value Date Recorded Sex Assigned at Not on file Legal Sex Female 5:01 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
--- OUTSIDE RECORDS SUMMARY | 2025-07-29 13:43 | XMS_ITS | Encounter Summary ---
Author Organization [facility] Address [address] [place] [address] Care Team Providers Care Medical Office Professional Instructor Name Role Phone Bret Fraser MD Primary Care Provider [phone] Encounter Details Date Type Department Care Team (Latest Contact Info) Description 03/24/2003 Outpatient Historical [facility] Sandeep Woo MD [address] [place] [address] ELDER PRIMIGRAVID-ANTEPART UM (Primary Dx) Social History Tobacco Use Types Packs/Day Years Used Date Smoking Tobacco: Never Assessed Comments Unknown Sex and Gender Information Value Date Recorded Sex Assigned at Not on file Legal Sex Female 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
[2025-07-29 13:53] LABS: BEDSIDEPREGUCG Negative (Negative)
[2025-07-29 13:54] LABS: Add Urine Microscopic? YES; Appearance Urine Cloudy (Clear); Glucose Urine UA Negative (Negative); Leukocyte Esterase Ur 2+ LEU/UL (Negative); Nitrate Urine Negative (Negative); Non Pathogenic Casts 0-2; Specific Grav Ur 1.026 (1.001-1.035)
[2025-07-29] MEDS: SODIUM CHLORIDE 0.9% IV 1,000 ML 999 ML IV CONT ×2 (13:58→15:30)
[2025-07-29 14:03] LABS: Troponin I < 0.012 ng/mL (0.000-0.034)
--- NOTE | 2025-07-29 14:07 | ED_ITS ---
HPI - Abdominal Pain General Chief Complaint: Abdominal Pain Stated Complaint: abd pain Time Seen by Provider: 07/29/25 13:07 Source: patient Mode of arrival: ambulatory Limitations: no limitations History of Present Illness HPI narrative: Patient is a 59-year-old female who presents the ED with report of upper abdominal pain. Patient reports she had [employer] and a donut for lunch and developed pain throughout her upper abdomen afterwards. States pain was fairly severe. She left work and began vomiting on her way home. Had a few more episodes of emesis at home. Prompted here for further evaluation. She states pain is slightly improved currently. She has had intermittent dull pain throughout her upper abdomen for the past few weeks, but never severe pain like today. Denies current nausea. Denies fevers, CP, SOB. Denies previous issues with her pancreas or gallbladder. Does have history of acid reflux and intermittently takes omeprazole. Related Data Home Medications ?Medication ?Instructions ?Recorded ?Confirmed ?Last Taken ?Type cholecalciferol (vitamin D3) 100 100 mcg PO DAILY 07/2407/21/25 Unknown History mcg (4,000 unit) capsule escitalopram oxalate 10 mg tablet mg 08/19/21 07/21/25 Unknown History denosumab 60 mg/mL subcutaneous 60 mg subcut [id number] 08/26/24 07/21/25 Unknown History syringe (Prolia) oxybutynin chloride 5 mg tablet 5 mg PO DAILY 08/26/24 07/21/25 Unknown History Allergies Allergy/AdvReac Type Severity Reaction Status Date / Time No Known Allergies Allergy Unknown Verified 07/29/25 15:48 Review of Systems 2 Review of Systems: All systems reviewed & are unremarkable except as noted in HPI. All systems reviewed & are unremarkable except as noted in HPI and below PMFSH Past Medical History Medical History Abnormal Pap smear of cervix 1993; 03/05/2015 ascus hpv negative Breast cancer (L) breast cancer--double mastectomy, chemo only Anxiety Surgical History Surgical History History of breast biopsy (L) breast History of lumpectomy of left breast History of mastectomy, total bilateral mastectomies w/intact reconstructions History of removal of cyst bartholin's gland cyst removal History of removal of Port-a-Cath History of endometrial biopsy (~11/09/16) History of esophagogastroduodenoscopy (~07/29/13) History of cryosurgery (~1993) Family History Family History Father Diabetes mellitus Hypertension Mother Hypothyroidism Dysplasia of cervix Grandparent Malignant neoplasm of liver maternal grandmother Malignant tumor of cervix maternal grandmother Other Family history of malignant neoplasm of cervix Family history of malignant neoplasm of male breast Social History Social History Smoking status: Never smoker Second hand tobacco smoke exposure: No Alcohol intake: never Substance use: never Substance use type: does not use Do You Feel Safe in your Home?: Yes Lack of Transportation: No Lack of Food: Never True Current Housing: I Have Housing Concerned About Future Housing: No Difficulty Paying Gas/Electric Bills: No Difficulty Paying for Meds: No Currently Unemployed: No Education: Master's Degree or Higher Difficulty w/ Childcare or Family Care: No Living arrangements: other Additional living arrangements comments: Occupation/Education: occupation 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 HEAD: Normocephalic, atraumatic. RESPIRATORY: Airway patent, respirations nonlabored. Clear to auscultation bilaterally, no rales, rhonchi, wheezing. CARDIOVASCULAR: Regular rate and rhythm without murmurs, rubs, or gallops. ABDOMINAL: Soft, mild tenderness to palpation in epigastric region, nondistended. Normoactive BS. MUSCULOSKELETAL: Moves all extremities. No gross deformities. SKIN: Warm, dry, normal color. NEURO: A&O X3. Speech clear. Cranial nerves II-XII grossly intact. Steady gait. No ataxic movements. PSYCHIATRIC: Appropriate mood and affect. Normal interaction. Course Vital Signs Vital signs: Vital Signs Temperature 97.9 F 07/29/25 12:59 Pulse Rate 76 07/29/25 12:59 Respiratory Rate 20 07/29/25 12:59 Blood Pressure 123/84 07/29/25 12:59 Pulse Oximetry 99 07/29/25 12:59 Oxygen Delivery Room Air 07/29/25 12:59 Temperature 98.1 F 07/29/25 16:31 Pulse Rate 76 07/29/25 16:31 Respiratory Rate 16 07/29/25 16:31 Blood Pressure 134/93 H 07/29/25 16:31 Pulse Oximetry 100 07/29/25 16:31 Oxygen Delivery Room Air 07/29/25 12:59 MDM - Abdominal Pain MDM Narrative Medical decision making narrative: Patient presented to ED with epigastric abdominal pain after eating today. Has had intermittent left severe pain for the past few weeks. Vital signs are stable upon arrival. Patient reports improvement of pain currently, did not want anything for pain at this time. Reports improvement of nausea currently. Fluids initiated. Cbc without leukocytosis or anemia. CMP with creatinine 1.21. No records to compare to. Normal LFTs. Lipase is moderately elevated to 1177. Patient denies previous history of pancreatitis or gallbladder issues. EKG is without ischemic changes. Troponin undetectable. UA with possible infection, 2+ leuk esterase, 21-50 RBC/WBC. 1+ urine bacteria seen. Sent for culture. Patient denies any urinary complaints. Will defer to culture results. CT scan of abdomen/pelvis was obtained: IMPRESSION: 1. Small amount pericholecystic fluid. Borderline gallbladder wall thickening. Consider acute cholecystitis. Consider a HIDA scan for further assessment. 2. Concentric thickening of the cuevas of the distal transverse and proximal descending colon. Differential includes incomplete bowel wall distention versus colitis. 3. Small amount of nonspecific fluid in the pelvis. 4. Fatty liver. No comment on inflammation of the pancreas. Right upper quadrant ultrasound was obtained and unremarkable, no evidence of acute cholecystitis. No cholelithiasis however I suspect biliary colic to be contributing to sx's/pancreatic inflammation today. Patient given 2L of fluid in the ED. Has remained stable. Has not required pain or nausea medication, no vomiting. On re-evaluation, she is feeling significantly better. Discussed lab and imaging findings extensively with patient, my concern for biliary colic. Feel patient is safe for discharge home at this time to continue fluid hydration at home, recommended clear liquids before progressing to low-fat diet. Will refer to General surgery for outpatient follow-up and possible elective cholecystectomy in the future. Will prescribe short course of pain and nausea medicine for home in case symptoms return. Patient given very strict return precautions. She is in agreement with plan, feels comfortable going home, voiced understanding of return precautions. Discharged in stable condition. Medical Records Attestation: I reviewed the patient's medical records. Lab Data Attestation: I reviewed the patient's lab results. 07/29/25 13:16 07/29/25 13:16 Labs: Lab Results 07/29/25 07/29/25 07/29/25 Range/Units 13:16 13:46 13:47 WBC 5.6 (4.5-10.0) K/mm3 RBC 4.58 (4.2-5.4) M/mm3 Hgb 14.1 (12.0-15.0) g/dL Hct 42.6 (37.0-47.0) % MCV 93.0 (80-100) fl MCH 30.8 (26-34) pg MCHC 33.1 (32-36) g/dl RDW 12.1 (11.5-14.5) % Plt Count 249 (150-375) k/mm3 MPV 9.5 (7.4-10.4) fl Immature Gran % (Auto) 0.2 (0-0.5) % Neut % (Auto) 39.4 L (45.5-73.1) % Lymph % (Auto) 29.7 (18.3-44.2) % [place] % (Auto) 9.8 H (2.6-8.5) % Eos % (Auto) 19.8 H (0-4.4) % Baso % (Auto) 1.1 (0.2-1.2) % Lymph # (Auto) 1.67 (0.9-3.2) K/mm3 [place] # (Auto) 0.6 (0.1-0.6) K/mm3 Eos # (Auto) 1.1 H (0-0.3) K/mm3 Baso # (Auto) 0.1 (0.0-0.1) K/mm3 Abs Immat Gran (auto) 0.01 (0.00-0.031) K/mm3 Absolute Neuts (auto) 2.2 (1.3-6.7) K/mm3 Absolute Nucleated RBC 0.000 (0.0-0.012) K/mm3 Nucleated RBC % 0.0 (0.0-0.2) % Sodium 137 (137-145) mmol/L Potassium 4.0 (3.4-5.0) mmol/L Chloride 100 (98-107) mmol/L Carbon Dioxide 28 (22-30) mmol/L Anion Gap 9 (4-12) mmol/L BUN 18 H (7-17) mg/dL Creatinine 1.21 H (0.7-1.0) mg/dL Estim Creat Clear Calc 46 ml/min Estimated GFR 46 L (59 - ) Glucose 111 H (65-110) mg/dL Calcium 9.2 (8.4-10.2) mg/dL Total Bilirubin 0.2 (0.2-1.3) mg/dL AST 39 H (14-36) U/L ALT 23 (6-35) U/L Alkaline Phosphatase 77 (38-126) U/L Troponin I < 0.012 (0.000-0.034) ng/mL Total Protein 8.1 (6.3-8.2) g/dL Albumin 4.7 (3.5-5.1) g/dL Lipase 1177 H (23-300) U/L Urine Color Yellow (Yellow) Urine Appearance Cloudy H (Clear) Urine pH 6.0 (5.0-9.0) Ur Specific [place] 1.026 (1.001-1.035) Urine Protein Trace (Negative) mg/dL Urine Glucose (UA) Negative (Negative) mg/dL Urine Ketones Trace H (Negative) mg/dL Ur Blood (Man) 1+ H (Negative) Urine Nitrate Negative (Negative) Urine Bilirubin Negative (Negative) Urine Urobilinogen 1.0 (<2.0) mg/dL Leukocyte Esterase Rfl 2+ H (Negative) MORIAH/UL Urine RBC 21-50 H (0-2) /hpf Urine WBC 21-50 H (0-3) /hpf Ur Squamous Epith Cells Few (Few) /hpf Urine Bacteria 1+ H /hpf Urine Casts 0-2 POC Urine HCG, Qual Negative (Negative) Imaging Data Attestation: I personally reviewed and interpreted this imaging study as follows: Radiologist's impression: ITS Impressions Abdomen/Pelvis CT 07/29/25 14:22 IMPRESSION: 1. Small amount pericholecystic fluid. Borderline gallbladder wall thickening. Consider acute cholecystitis. Consider a HIDA scan for further assessment. 2. Concentric thickening of the cuevas of the distal transverse and proximal descending colon. Differential includes incomplete bowel wall distention versus colitis. 3. Small amount of nonspecific fluid in the pelvis. 4. Fatty liver. Abdomen Ultrasound 07/29/25 15:32 Impression: No acute abnormality. ECG Data EKG #1: Attestation: I personally reviewed and interpreted this ECG as follows: ECG completion date: 07/29/25 ECG completion time: 13:52 normal rate (76), sinus rhythm and no ST changes Discharge Plan Discharge Clinical Impression: Pancreatitis Qualifiers: Chronicity: acute Pancreatitis type: unspecified pancreatitis type Acute pancreatitis complication: unspecified Qualified Code(s): K85.90 - Acute pancreatitis without necrosis or infection, unspecified Patient Disposition: Home Condition: Stable Instructions: Antibiotic Form, Pancreatitis (ED), Biliary Colic (ED), Low Fat Diet (ED), Clear Liquid Diet (ED) Additional Instructions: Recommend clear liquid diet over the next few days, followed by low-fat diet. Stay very well hydrated. Utilize [place] as needed for more severe pain. Zofran as needed for nausea. Recommend follow-up with General surgery for further evaluation. Return to the ED if you experience worsening or severe pain, unable to keep down food or drink, fevers, rectal bleeding, dark black stools, chest pain, difficulty breathing, or any other symptoms of concern. Patient Language: Upper Sorbian Prescriptions: New hydrocodone-acetaminophen 5-325 mg tablet 1 tablet PO Q6H PRN (Reason: pain) Qty: 10 0RF ondansetron 4 mg tablet,disintegrating 4 mg PO Q8H PRN (Reason: nausea and vomiting) Qty: 15 0RF No Action oxybutynin chloride 5 mg tablet 5 mg PO DAILY Prolia 60 mg/mL syringe 60 mg subcut [id number] escitalopram oxalate 10 mg tablet Vitamin D3 100 mcg (4,000 unit) Capsule 100 mcg PO DAILY estradiol 10 mcg tablet 10 mcg vaginal 2XW Qty: 24 3RF sulfamethoxazole-trimethoprim [Bactrim DS] 800-160 mg tablet 1 tablet PO Q12H 10 Days Qty: 20 0RF Follow-up/Referrals: Bria,MD Bret [Primary Care Provider, Unknown] Jens Wei DO [Physician, General Surgery] Referral Note: GENERAL SURGERY Time of Disposition: 16:15
--- OUTSIDE RECORDS SUMMARY | 2025-07-29 14:30 | XMS_ITS | Clinical Summary ---
Author Organization 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 Mail to: [facility] [address]. 1 mL 1 Active Active Problems Problem Noted Date Diagnosed Date HANS (generalized anxiety disorder) 06/28/2022 ADD (attention deficit disorder) 06/28/2022 Hematuria 05/31/2022 Malignant neoplasm of breast ([facility]/HCC [facility]/HCC) 0 04/17/2009 Overview (05/31/2022): 08/13/08 LEFT breast cancer IDC T1c Ni+ M0 ER 21% HI- HER2 4.4 BRCA 1/2 negative 08/27/08 LEFT LUMP and slnd 09/26/08-11/27/08 AC x 4 and Taxotere and Herceptin until November 2009 02/26/09 b/l mastectomy 04/03/09 TMX Last Assessment & Plan: 5 years out On TMX 4 years Taking vit D monthly - due now Green smoothies now. 08/13/08 LEFT breast cancer IDC T1c Ni+ M0 ER 21% HI- HER2 4.4 BRCA 1/2 negative 08/27/08 LEFT LUMP and slnd 09/26/08-11/27/08 AC x 4 and Taxotere and Herceptin until November 2009 02/26/09 b/l mastectomy 04/03/09 TMX Last Assessment & Plan: 5 years out On TMX 4 years Taking vit D monthly - due now Green smoothies now. Encounters Date Type Department Care Team Description 06/09/2025 MyChart Message Enc [facility] Medical [facility] [place] [address] [place], [place] [id number] Bret Fraser MD Physician form to fill out 06/04/2025 Scan [employer] HEALTH INFO SRVCS Scanned, [facility] 06/03/2025 Results Follow-Up [facility] [place] [address] [place], [place] [id number] Bret Fraser MD URINALYSIS AUTO DIP 06/02/2025 Telephone [facility] [place] [id number] [facility] [address] [place] [address] Bret Fraser MD Record Request 06/02/2025 Results Follow-Up [place] [address] [address] [facility] [address] [place] [address] Bert Fraser MD LIPID PANEL, COMPREHENSIVE METABOLIC PANEL, CBC W/DIFF AUTOMATED, Additional followed-up results: 3 05/30/2025 8:20 AM CDT Office Visit [place] [address] [address] [facility] [address] [place] [address] Bret Fraser MD Physical 05/30/2025 Orders Only [place] [address] [address] [facility] [address] [place] [address] Bret Fraser MD 05/30/2025 Travel from Last [...] than three times a week 05/30/2025 Attends [employer] Not on file 05/30 Active Member [...] time in the past 12 m [facility], were you homeless or living in a [place] health care facility (including now)? 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 Comment: This test was performed using the Siemens (Fieldwire) chemiluminescent method. Values obtained from different assay methods cannot be used interchangeably. CA 15-3 levels, regardless of value, should not be interpreted as absolute evidence of the presence or absence of disease. 05/30/2025 10:0 2 AM CDT 05/30/2025 10:04 AM CDT Narrative [facility] [place] - 05/31/2025 4:17 AM CDT FASTING:NO FASTING: NO Resulting Agency Comment Performing Organization Information: Site ID: PR Name: [facility] Address: [address] [place] [address] [place] [address] Director: Rizwan Michelle MD Bret Fraser MD LABORATORY Final Result [facility] [place] [facility] [address] [address] [address], [place] * TSH W/REFLEX (05/30/2025 10:02 AM CDT) TSH 2.15 0.40 - 4.50 mIU/L [facility] [place] 05/30/2025 10:0 2 AM CDT 05/30/2025 10:04 AM CDT Narrative [facility] [place] - 05/31/2025 4:17 AM CDT FASTING:NO FASTING: NO Resulting Agency Comment Performing Organization Information: Site ID: [place] Name: [facility] Address: [address] [place] [id number] Director: Rizwan Michelle Bret Fraser MD LABORATORY Final Result Performing Organization Address City/[facility] Co de Phone Number [facility] [place] [facility] [place], [place] [address] [place] [phone], [place] * HEMOGLOBIN, GLYCOSYLATED (05/30/2025 10:02 AM CDT) Pathologist [facility] HGB A1C 5.5 <5.7 % of total Hgb [facility] [place] Comment: For the purpose of screening for the presence of diabetes: <5.7% Consistent with the absence of diabetes 5.7-6.4% Consistent with increased risk for diabetes (prediabetes) > or =6.5% Consistent with diabetes This assay result is consistent with a decreased risk of diabetes. Currently, no consensus exists regarding use of hemoglobin A1c for diagnosis of diabetes in children. According to [place] Diabetes Association (ADA) guidelines, hemoglobin A1c <7.0% represents optimal control in non- diabetic patients. Different metrics may apply to specific patient populations. Standards of Medical Care in Diabetes(ADA). 05/30/2025 10:0 2 AM CDT 05/30/2025 10:04 AM CDT Narrative [facility] [place] [facility] - 05/31/2025 4:17 AM CDT FASTING:NO FASTING: NO Resulting Agency Comment Performing Organization Information: Site ID: SL Name: [facility] Address: [address] [place] [address] Director: Rizwan Michelle Bret Fraser MD LABORATORY Final Result [facility] [place] [address] [place] [address], * COMPREHENSIVE METABOLIC PANEL (05/30/2025 10:02 AM CDT) GLUCOSE 88 65 - 139 mg/dL [place] Comment: Non-fasting reference interval BUN 16 7 - 25 mg/dL [place] CREATININE S/P/B 0.96 0.50 - 1.03 mg/dL [place] GFR ESTIMATE 68 > OR = 60 mL/min/1. 73m2 [place] BUN CREATININE RATIO SEE NOTE: 6 - 22 (calc) [place] Comment: Not Reported: BUN and Creatinine are within reference range. SODIUM S/P/B 137 135 - 146 mmol/L [place] POTASSIUM S/P/B 4.3 3.5 - 5.3 mmol/L [place] CHLORIDE S/P/B 100 98 - 110 mmol/L [place] CO2 30 20 - 32 mmol/L [place] CALCIUM S/P/B 10.0 8.6 - 10.4 mg/dL [place] TOTAL PROTEIN S/P/B 8.0 6.1 - 8.1 g/dL [place] ALBUMIN S/P/B 4.9 3.6 - 5.1 g/dL [place] GLOBULIN 3.1 1.9 - 3.7 g/dL (calc) [place] ALBUMIN/GLOBULIN RATIO 1.6 1.0 - 2.5 (calc) [place] BILIRUBIN TOTAL S/P/B 0.6 0.2 - 1.2 mg/dL [facility] [place], [place] ALKALINE PHOSPHATASE S/P/B 53 37 - 153 U/L [place] AST 26 10 - 35 U/L [place] ALT 15 6 - 29 U/L [place] 05/30/2025 10:0 2 AM CDT 05/30/2025 10:04 AM CDT Narrative [facility] [place] - 05/31/2025 4:17 AM CDT FASTING:NO FASTING: NO Resulting Agency Comment Performing Organization Information: Site ID: SL Name: [facility] Address: [facility] [place] [address] Director: Rizwan Michelle Bret Fraser MD LABORATORY Final Result [facility] [place] [facility] [address] [address] * (ABNORMAL) LIPID PANEL (05/30/2025 10:02 AM CDT) CHOLESTEROL 236(H) <200 mg/dL [place] HDL 68 > OR = 50 mg/dL [place] TRIGLYCERIDES 86 <150 mg/dL [place] LDL (CALCULATED) 149(H) mg/dL (calc) [place] Comment: Reference range: <100 Desirable range <100 mg/dL for primary prevention; <70 mg/dL for patients with CHD or diabetic patients with > or = 2 CHD risk factors. LDL-C is now calculated using the Gaston calculation, which is a validated novel method providing better accuracy than the Friedewald equation in the estimation of LDL-C. Messi SS et al. KIA. 2013;310(19): 1250-8305 (http://education.[employer]/faq/QBA513) CHOL/HDL RATIO 3.5 <5.0 (calc) [place] NON HDL CHOLESTEROL 168(H) <130 mg/dL (calc) [place] Comment: For patients with diabetes plus 1 major ASCVD risk factor, treating to a non-HDL-C goal of <100 mg/dL (LDL-C of <70 mg/dL) is considered a therapeutic option. 05/30/2025 10:0 2 AM CDT 05/30/2025 10:04 AM CDT Narrative [facility] [place] - 05/31/2025 4:17 AM CDT FASTING:NO FASTING: NO Resulting Agency Comment Performing Organization Information: Site ID: SL Name: [facility] Address: [facility] [place] [address] Director: Rizwan Michelle Bret Fraser MD LABORATORY Final Result [facility] [place] [address] [place] [phone], * CBC W/DIFF AUTOMATED (05/30/2025 10:02 AM CDT) WBC 4.1 3.8 - 10.8 Thousand/u L [place] RBC 4.53 3.80 - 5.10 Million/uL [place] HGB 14.2 11.7 - 15.5 g/dL [place] HCT 43.4 35.0 - 45.0 % [place] MCV 95.8 80.0 - 100.0 fL [place] MCH 31.3 27.0 - 33.0 pg [place] MCHC 32.7 32.0 - 36.0 g/dL [place] Comment: For adults, a slight decrease in the calculated MCHC value (in the range of 30 to 32 g/dL) is most likely not clinically significant; however, it should be interpreted with caution in correlation with other red cell parameters and the patient's clinical condition. RDW 12.2 11.0 - 15.0 % [place] PLT 264 140 - 400 Thousand/u L [place] MPV 10.6 7.5 - 12.5 fL [place] ABS. NEUTROPHILS 2,198 1,500 - 7,800 cells/uL [facility] DIAGNOST[place] ABS. LYMPHOCYTES 1,447 850 - 3,900 cells/uL [facility] DIAGNOSTICSLA[place], [place] ABS. MONOCYTES 316 200 - 950 cells/uL [facility] DIAGNOSTICSLAUR[place], [place] ABS. EOSINOPHILS 90 15 - 500 cells/uL [place] ABS. BASOPHILS 49 0 - 200 cells/uL [facility] [place], [place] SEG NEUTROPHILS 53.6 % [facility]AGNOST[facility], [place] LYMPHOCYTES 35.3 % [facility] [place] MONOCYTES 7.7 % [place] EOSINOPHILS 2.2 % [facility] [place] BASOPHILS 1.2 % [place] 05/30/2025 10:0 2 AM CDT 05/30/2025 10:04 AM CDT Narrative [facility] [place] - 05/31/2025 4:17 AM CDT FASTING:NO FASTING: NO Resulting Agency Comment Performing Organization Information: Site ID: Name: [facility] Address: [address] [place] [phone] Director: Rizwan Michelle Bret Fraser MD LABORATORY Final Result [facility] [place] [address] [address], * (ABNORMAL) URINALYSIS AUTO DIP (05/30/2025) COLOR (U) YELLOW YELLOW [address], [place] TRANSPARENCY CLEAR CLEAR MG-[address], [place] GLUCOSE (U) NEGATIVE NEGATIVE MG/DL MG-[address], [place] BILIRUBIN (U) NEGATIVE NEGATIVE MG-[address], [place] KETONES MG/DL (U) NEGATIVE NEGATIVE MG/DL MG-[address], [place] SPECIFIC GRAVITY (U) 1.005 1.001 - 1.035 MG-[address], [place] BLOOD (U) TRACE (Non Hemolyzed, Intact)(A) NEGATIVE MG-[address], [place] U PH 6.0 5.0 - 9.0 MG-[address], [place] PROTEIN (U) NEGATIVE NEGATIVE mg/dL MG-[address], [place] UROBILINOGEN 0.2 0.2 - 1.0 EU/dL = mg/dL MG-[address], [facility] NITRITES NEGATIVE NEGATIVE MG/DL MG-[address], [facility] LEUKOCYTES (U) TRACE(A) NEGATIVE MG-[address], [facility] URINE SPECIMEN OBTAINED BY CLEAN CATCH PROCEDURE / Unknown 05/30/2025 Bret Fraser MD URINE ORDERABLES Final Result Performing Organization Address City/[facility] Co de Phone Number MG-[address], [facility] [address] [place] [address], [place] [phone] * PAP SMEAR WITH HPV (08/26/2024) 08/26/2024 [facility] Scanned SCANNING Final Resu lt * HEPATITIS C ANTIBODY (05/31/2022 11:01 AM CDT) HEPATITIS C AB NON-REACTI VE NON-REACT LARISSA 05/31/2022 8:16 PM CDT [facility] Comment: ANTIBODIES TO HCV NOT DETECTED. DOES NOT EXCLUDE THE POSSIBILITY OF EXPOSURE TO HCV. 05/31/2022 11:0 1 AM CDT Bret Fraser MD LABORATORY Final Result [facility] [address] [place] [address], [place] [phone] [phone] * COLONOSCOPY GENERIC (05/18/2021) 05/18/2021 Narrative 05/18/2021 Ordered by an unspecified provider. 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
--- OUTSIDE RECORDS SUMMARY | 2025-07-29 14:30 | XMS_ITS | Encounter Summary ---
Author Organization [facility] Address [address] [place] [address] Care Team Providers Care Mammography Technologist Name Role Phone Bret Fraser MD Primary Care Provider [phone] Encounter Details Date Type Department Care Team (Late st Contact Info) Description 04/17/2009 Outpatient Historical [facility], [address] Kady Jones MD [address] [place] [address] [place] [address] Malignant Neoplasm of Breast (Female), Unspecified Site (CMS/HCC) Social History Tobacco Use Types Packs/Day Years Used Date Smoking Tobacco: Never Assessed Comments No Sex and Gender Information Value Date Recorded Sex Assigned at Not on file 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
--- OUTSIDE RECORDS SUMMARY | 2025-07-29 14:30 | XMS_ITS | Encounter Summary ---
Author Organization [facility] Address [address] [place] [address] Care Team Providers Care Occupational Health Nurse Supervisor Name Role Phone Bret Fraser MD Primary Care Provider [phone] Encounter Details Date Type Department Care Team (Late st Contact Info) Description 03/28/2003 Outpatient Historical 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
--- OUTSIDE RECORDS SUMMARY | 2025-07-29 14:30 | XMS_ITS | Encounter Summary ---
Author Organization [facility] Address [address] [place] [address] Care Team Providers Care Manager Park Name Role Phone Bret Fraser MD Primary Care Provider Encounter Details Date Type Department Care Team (Latest Contact Info) Description 09/03/2024 [address] Library Networkhart Message Enc [address] [address] Bret Fraser MD [address] [place] [address] [phone] DIANELYS KILPATRICKKIARABASSAM PHYSICAL FORM Social History Tobacco [...] st Contact Info) Description 12/01/2025 8:40 AM CUSTOMER ORDER CLERK Office Visit [facility] Medical [facility] Multispecialty [address] [place] [address] [place] [address] [place] [address] documented as of this encounter Visit Diagnoses Not on filedocumented in this encounter Additional Health Concerns Assessment Noted Time PHQ-9 Depression Total Score: 0 05/31/20 24 8:30 AM CDT documented as of this encounter Care Teams Manager Park Relationship Specialty Start Date End Date Bret Fraser MD [address] [place] [address] PCP - General INTERNAL MEDICINE 05/31/22 documented as of this encounter
--- OUTSIDE RECORDS SUMMARY | 2025-07-29 14:30 | XMS_ITS | Encounter Summary ---
Author Organization [facility] Address [address] [place] [address] Care Team Providers Care Manager Hris Name Role Phone Bret Fraser MD Primary Care Provider [phone] Encounter Details Date Type Department Care Team (Late st Contact Info) Description 03/27/2009 Outpatient Historical [facility], [address] Kady Jones MD [address] [place] [address] [place] [address] Malignant Neoplasm of Breast (Female), Unspecified Site (CMS/HCC) Social History Tobacco Use Types Packs/Day Years Used Date Smoking Tobacco: Never Assessed Comments Unknown Sex and Gender Information Value Date Recorded Sex Assigned at Not on file 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 VALUES OBTAINED FROM DIFFERENT ASSAY METHODS CANNOT BE USED INTERCHANGEABLY. CA27.29 LEVELS, REGARDLESS OF VALUE, SHOULD NOT BE INTERPRETED ABSOLUTE EVIDENCE OF THE PRESENCE OR ABSENCE OF DISEASE. Lab test performed by: [employer] [address] [address] [facility] [place] [address] JOSEPH CH MDThis test was performed using the [employer]/Peri CA 27.29 Assay. 03/27/2009 8:57 PM CDT 03/27/2009 8:59 PM CDT Kady Jones MD CHEMISTRY ORDERABLES COM Fi nal Result INTERFACE SYSTEM Refer to clinic/hospital department [facility] CLIA# [id number] [address] [facility] [place] [address] * (ABNORMAL) COMPREHENSIVE METABOLIC PANEL (03/27/2009 8:57 PM CDT) CO2 27 22 - 30 mmol/L [facility] BILIRUBIN TOTAL 0.3 0.2 - 1.0 mg/dL [facility] POTASSIUM 4.2 3.5 - 4.9 mmol/L [facility] TOTAL PROTEIN 7.0 6.3 - 8.6 g/dL [facility] GLUCOSE 81 65 - 99 mg/dL [facility] AST 38(H) 12 - 32 U/L [facility] BUN 13 6 - 20 mg/dL [facility] CALCIUM 10.0 8.6 - 10.2 mg/dL [facility] ALBUMIN 4.4 3.4 - 4.8 g/dL [facility] CHLORIDE 103 96 - 108 mmol/L [facility] CREATININE 0.80 0.51 - 0.95 mg/dL [facility] ALT 38(H) 0 - 31 U/L [facility] SODIUM 138 135 - 145 mmol/L [facility] ALKALINE PHOSPHATASE 69 35 - 104 U/L [facility] GFR, >60 >=60 mL/min/1.7 sq meter [facility] GFR >60 >=60 mL/min/1.7 sq meter [facility] Comment: Modification of Diet in Renal Disease (MDRD) study formula. Estimated GFR rate interpretative information for both Americans and non- Americans is available on the [facility] Intranet at: [email or web address] Select: Lab Policies and Procedures Select: Reference Ranges - GFR 03/27/2009 8:57 PM CDT 03/27/2009 8:57 PM CDT Kady Jones MD CHEMISTRY ORDERABLES Edited INTERFACE SYSTEM Refer to clinic/hospital department [facility] CLIA# [id number] [address] [place] [address] documented in this encounter Visit Diagnoses Diagnosis Malignant neoplasm of breast (female), unspecified site documented in this encounter Care Teams Manager Hris Relationship Specialty Start Date End Date Bret Fraser MD [address] [place] [address] PCP - General Internal Medicine 05/28/24 documented as of this encounter
--- OUTSIDE RECORDS SUMMARY | 2025-07-29 14:30 | XMS_ITS | Encounter Summary ---
Author Organization [employer] Address [address] [place] [address] Care Team Providers Care Software Computer Specialist Name Role Phone Bret Fraser MD Primary Care Provider [phone] Encounter Details Date Type Department Care Team (Late st Contact Info) Description 02/12/2009 Outpatient Historical [facility], [address] Kady Jones MD [address] [place] [address] [place] [address] Malignant Neoplasm of Breast (Female), Unspecified Site (CMS/HCC) Social History Tobacco Use Types Packs/Day Years Used Date Smoking Tobacco: Never Assessed Comments Unknown Sex and Gender Information Value Date Recorded Sex Assigned at Not on file 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 VALUES OBTAINED FROM DIFFERENT ASSAY METHODS CANNOT BE USED INTERCHANGEABLY. CA27.29 LEVELS, REGARDLESS OF VALUE, SHOULD NOT BE INTERPRETED ABSOLUTE EVIDENCE OF THE PRESENCE OR ABSENCE OF DISEASE. Lab test performed by: [employer] [address] [place] [address] JOSEPH CH MDThis test was performed using the [employer]/Peri CA 27.29 Assay. Blood specimen (specimen) 02/12/2009 8:37 PM CDT 02/12/2009 8:47 PM CDT Kady Jones MD CHEMISTRY ORDERABLES COM Fi nal Result INTERFACE SYSTEM Refer to clinic/hospital department [facility] CLIA# [id number] [address] [place] [address] * (ABNORMAL) COMPREHENSIVE METABOLIC PANEL (02/12/2009 8:37 PM CDT) BUN 17 6 - 20 mg/dL [facility] CALCIUM 9.5 8.6 - 10.2 mg/dL [facility] CHLORIDE 103 96 - 108 mmol/L [facility] ALBUMIN 4.4 3.4 - 4.8 g/dL [facility] CREATININE 0.75 0.51 - 0.95 mg/dL [facility] SODIUM 138 135 - 145 mmol/L [facility] ALT 84(H) 0 - 31 U/L [facility] ALKALINE PHOSPHATASE 56 35 - 104 U/L [facility] BILIRUBIN TOTAL 0.2 0.2 - 1.0 mg/dL [facility] CO2 27 22 - 30 mmol/L [facility] TOTAL PROTEIN 7.0 6.3 - 8.6 g/dL [facility] POTASSIUM 4.5 3.5 - 4.9 mmol/L [facility] GLUCOSE 88 65 - 99 mg/dL [facility] AST 50(H) 12 - 32 U/L [facility] GFR, >60 >=60 mL/min/1.7 sq meter [facility] GFR >60 >=60 mL/min/1.7 sq meter [facility] Comment: Modification of Diet in Renal Disease (MDRD) study formula. Estimated GFR rate interpretative information for both Americans and non- Americans is available on the [facility] Intranet at: [email or web address] Select: Lab Policies and Procedures Select: Reference Ranges - GFR Blood specimen (specimen) 02/12/2009 8:37 PM CDT 02/12/2009 8:37 PM CDT Kady Jones MD CHEMISTRY ORDERABLES Edited INTERFACE SYSTEM Refer to clinic/hospital department [facility] CLIA# [id number] [address] [place] [address] documented in this encounter Visit Diagnoses Diagnosis Malignant neoplasm of breast (female), unspecified site documented in this encounter Care Teams Software Computer Specialist Relationship Specialty Start Date End Date Bret Fraser MD [address] [place] [address] PCP - General Internal Medicine 05/28/24 documented as of this encounter
--- OUTSIDE RECORDS SUMMARY | 2025-07-29 14:30 | XMS_ITS | Encounter Summary ---
Author Organization [facility] Address [address] [place] [address] Care Team Providers Care Pressure Dispatcher Name Role Phone Bret Fraser MD Primary Care Provider [phone] Encounter Details Date Type Department Care Team (Late st Contact Info) Description 12/25/2024 MyChart Message Enc [address] [address] Bret Fraser MD [address] [place] [address] bone density Social History Tobacco Use Types [...] st Contact Info) Description 12/01/2025 8:40 AM HEALTH INFORMATION PROVIDER [facility] [address] [place] [address] Bret Fraser MD [address] [address] documented as of this encounter Visit Diagnoses Not on filedocumented in this encounter Additional Health Concerns Assessment Noted Time PHQ-9 Depression Total Score: 0 05/31/20 24 8:30 AM CDT documented as of this encounter Care Teams Pressure Dispatcher Relationship Specialty Start Date End Date Bret Fraser MD [address] [address] PCP - General INTERNAL MEDICINE 05/31/22 documented as of this encounter
--- OUTSIDE RECORDS SUMMARY | 2025-07-29 14:30 | XMS_ITS | Encounter Summary ---
Author Organization [facility] Address 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
--- OUTSIDE RECORDS SUMMARY | 2025-07-29 14:30 | XMS_ITS | Encounter Summary ---
Author Organization [facility] Address [address] [place] [address] Care Team Providers Care Rail Car Unloader Name Role Phone Bret Fraser MD Primary Care Provider [phone] Encounter Details Date Type Department Care Team (Late st Contact Info) Description 03/31/2003 Outpatient Historical [facility] Maternal and Ground Floor [address] [facility] [address] [place] [address] Asad Vega MD NO ADDRESS ON FILE Social History Tobacco Use Types Packs/Day Years Used Date Smoking Tobacco: Never Assessed Comments Unknown Sex and Gender Information Value Date Recorded Sex Assigned at Not on file 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
--- OUTSIDE RECORDS SUMMARY | 2025-07-29 14:30 | XMS_ITS | Encounter Summary ---
Author Organization [facility] Address [address] [place] [address] Care Team Providers Care Sheet Metal Pattern Cutter Name Role Phone Bret Fraser MD Primary Care Provider [phone] Encounter Details Date Type Department Care Team (Latest Contact Info) Description 02/17/2009 Outpatient Historical [facility], [address] Rachel Calix MD [address] [place] [address] Malignant Neoplasm of Breast (Female), Unspecified Site (CMS/HCC) Social History Tobacco Use Types Packs/Day Years Used Date Smoking Tobacco: Never Assessed Comments Unknown Sex and Gender Information Value Date Recorded Sex Assigned at Not on file 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 CHLORIDE 100 96 - 108 mmol/L [facility] ALBUMIN 4.4 3.4 - 4.8 g/dL [facility] CREATININE 0.79 0.51 - 0.95 mg/dL [facility] SODIUM 136 135 - 145 mmol/L [facility] ALT 59(H) 0 - 31 U/L [facility] ALKALINE PHOSPHATASE 55 35 - 104 U/L [facility] BILIRUBIN TOTAL 0.3 0.2 - 1.0 mg/dL [facility] CO2 28 22 - 30 mmol/L [facility] TOTAL PROTEIN 7.1 6.3 - 8.6 g/dL [facility] POTASSIUM 4.1 3.5 - 4.9 mmol/L [facility] GLUCOSE 95 65 - 99 mg/dL [facility] AST 41(H) 12 - 32 U/L [facility] BUN 17 6 - 20 mg/dL [facility] GFR, >60 >=60 mL/min/1.[address] [facility] GFR >60 >=60 mL/min/1.[address] [facility] Comment: Modification of Diet in Renal Disease (MDRD) study formula. Estimated GFR rate interpretative information for both Americans and non- Americans is available on the [facility] Intranet at: [email or web address] Select: Lab Policies and Procedures Select: Reference Ranges - GFR Blood specimen (specimen) 02/17/2009 9:21 PM CDT 02/17/2009 9:21 PM CDT us Rachel Calix MD CHEMISTRY ORDERABLES Edited INTERFACE SYSTEM Refer to clinic/hospital department [facility] CLIA# [id number] [address] [place] [address] * (ABNORMAL) CBC WITH DIFFERENTIAL (02/17/2009 9:21 PM CDT) MCV 93.2 82.0 - 99.[address] [facility] PLATELETS 201 140 - 350 K/uL [facility] HEMOGLOBIN 12.9 11.8 - 14.8 g/dL [facility] RDW 12.5 11.5 - 14.5 % [facility] WBC 3.0(L) 4.0 - 9.8 K/uL [facility] MCH 31.4 27.2 - 32.[address] [facility] MPV 11.5 9.3 - 12.[address] [facility] HEMATOCRIT 38.3 35.5 - 44.0 % [facility] RDW-STDEV 42.0 37.1 - 48.[address] [facility] RBC 4.11 3.90 - 4.90 M/uL [facility] MCHC 33.7 31.5 - 35.5 % [facility] EOSINOPHILS 3 0 - 7 % [facility] EOSINOPHIL ABSOLUTE 0.09 0.00 - 0.70 K/uL [facility] LYMPHOCYTES 25 16 - 45 % [facility] LYMPHOCYTE ABSOLUTE 0.75 0.70 - 4.50 K/uL [facility] BASOPHILS 1 0 - 2 % [facility] BASOPHILS ABSOLUTE 0.03 0.00 - 0.20 K/uL [facility] MONOCYTES 15(H) 3 - 13 % [facility] MONOCYTE ABSOLUTE 0.43 0.10 - 1.30 K/uL [facility] NEUTROPHILS 56 45 - 70 % [facility] NEUTROPHIL ABSOLUTE 1.65(L) 1.90 - 7.00 K/uL [facility] Blood specimen (specimen) 02/17/2009 9:21 PM CDT 02/17/2009 9:21 PM CDT Narrative INTERFACE SYSTEM - 02/19/2009 2:06 PM CDT faxed to [phone] 02/19/09 14:06 ve us Rachel Calix MD HEMATOLOGY ORDERABLES Edited INTERFACE SYSTEM Refer to clinic/hospital department [facility] CLIA# [id number] [address] [place] [address] documented in this encounter Visit Diagnoses Diagnosis Malignant neoplasm of breast (female), unspecified site documented in this encounter Care Teams Sheet Metal Pattern Cutter Relationship Specialty Start Date End Date Bret Fraser MD [address] [place] [address] PCP - General Internal Medicine 05/28/24 documented as of this encounter
--- OUTSIDE RECORDS SUMMARY | 2025-07-29 14:31 | XMS_ITS | Clinical Summary ---
Author Organization [facility] Address [address] [place] [address] Care Team Providers Care Copy Center Operator Name Role Phone Tacos Ochoa MD Primary Care Provider [phone] [facility],non-[facility] Affiliates and Associated Physician Practices is amultiple site organization consisting of ambulatory clinics and hospital sitesin [place], [place], [place] and [place]. This disclosure is being madepursuant to the Care Everywhere program and may not contain all information available regarding this patient. Last updated 18.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
--- OUTSIDE RECORDS SUMMARY | 2025-07-29 14:31 | XMS_ITS | Encounter Summary ---
Author Organization [facility] Address [address] [place] [address] Care Team Providers Care Powderer Name Role Phone Bret Fraser MD Primary Care Provider [phone] Encounter Details Date Type Department Care Team (Late st Contact Info) Description 12/11/2023 MyChart Message Enc [address] [address] Bret Fraser MD [address] [place] [address] sinus infection Social History Tobacco Use Types [...] st Contact Info) Description 12/01/2025 8:40 AM TRANSMISSION ENGINEER Office Visit [facility] [address] [place] [address] Bret Fraser MD [address] [address] documented as of this encounter Visit Diagnoses Not on filedocumented in this encounter Additional Health Concerns Assessment Noted Time PHQ-9 Depression Total Score: 2 11/29/19 24 7:52 AM TRANSMISSION ENGINEER documented as of this encounter Care Teams Powderer Relationship Specialty Start Date End Date Bret Fraser MD [address] [address] PCP - General INTERNAL MEDICINE 05/31/22 documented as of this encounter
--- OUTSIDE RECORDS SUMMARY | 2025-07-29 14:31 | XMS_ITS | Encounter Summary ---
Author Organization [facility] Address [address] [place] [address] Care Team Providers Care Spice Fumigator Name Role Phone Bret Fraser MD Primary Care Provider [phone] Encounter Details Date Type Department Care Team (Latest Contact Info) Description 02/20/2003 Outpatient Historical [facility] PATIENT IN A BED Naida Wall MD [address] [place] [address] Palmer Argueta MD [address] [facility] [address] [place] [address] PREG COMPL NEC-ANTEPART (Primary Dx) Social History Tobacco Use Types Packs/Day Years Used Date Smoking Tobacco: Never Assessed Comments Unknown Sex and Gender Information Value Date Recorded Sex Assigned at Not on file 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
--- OUTSIDE RECORDS SUMMARY | 2025-07-29 14:31 | XMS_ITS | Encounter Summary ---
Author Organization [facility] Address 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
--- OUTSIDE RECORDS SUMMARY | 2025-07-29 14:31 | XMS_ITS | Encounter Summary ---
Author Organization [facility] Address [address] [place] [address] Care Team Providers Care Radio Interference Supervisor Name Role Phone Bret Fraser MD Primary Care Provider [phone] Encounter Details Date Type Department Care Team (Late st Contact Info) Description 02/27/2003 Outpatient Historical [facility] Maternal and Ground Floor [address] [facility] [address] [place] [address] Naida Wall MD [address] [place] [address] Social History Tobacco Use Types Packs/Day Years Used Date Smoking Tobacco: Never Assessed Comments Unknown Sex and Gender Information Value Date Recorded Sex Assigned at Not on file 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
--- OUTSIDE RECORDS SUMMARY | 2025-07-29 14:31 | XMS_ITS | Clinical Summary ---
Author Organization [facility] Address [address] [place] [address] Care Team Providers Care Rehabilitation Team Lead Name Role Phone Tcaos Ochoa MD Primary Care Provider [phone] Allergies Active Allergy Reactions Criticality Noted Date [...] (03/04/2021): Added automatically from request for surgery [id number] Breast cancer 04/17/2009 Overview (08/20/2021): 08/13/08 LEFT breast cancer IDC T1c Ni+ M0 ER 21% PA- HER2 4.4 BRCA 1/2 negative 08/27/08 LEFT [...] BREAST RECONSTRUCTION 02/20/2009 - 03/22/2009 [facility] Medical History Medical History Date Comments Anxiety [...] on file Legal Sex Female 2:51 AM CAREER SERVICES OFFICER Gender Identity Not on file Sexual Orientation Not on file Obstetrics History Last Filed Vital Signs Vital Sign Reading Time Taken Comments Blood Pressure 134/75 09/28/2021 12:32 PM CAREER SERVICES OFFICER Pulse 82 09/28/2021 12:32 PM CAREER SERVICES OFFICER Temperature 36.9 C (98.4 F) 08/16/2021 9:32 AM CDT Respiratory Rate 16 08/16/2021 9:32 AM CDT Oxygen Saturation 98% 08/16/2021 9:32 AM CDT Inhaled Oxygen Concentration - - Weight 72.6 kg (160 lb) 09/28/2021 12:32 PM CAREER SERVICES OFFICER Height 167.6 cm (5' 6) 09/28/2021 12:32 PM CAREER SERVICES OFFICER Body Mass Index 25.82 09/28/2021 12:32 PM CAREER SERVICES OFFICER Plan of Treatment Scheduled Procedures Name [...] Female Attending MD: Pietro Peguero M.D. Room: [facility] ENDOSCOPY ROOM 8 Note Status: Finalized Procedure: [...] passed under direct vision.The CF HQ [id number] endoscope was introducedthrough the anus and advanced to the terminal ileum. The colonoscopy was performed without difficulty. The patient tolerated the procedure well. The qualityof the bowel preparation was evaluated using the BBPS (Brady Bowel Preparation Scale) with scores of:Right Colon [...] During normal business hours - [facility] [place] Coordinator: [phone] After hours, evening, nights, weekends and holidays- Please call the hospital pot operator at and ask for the GI fellow credit control administrator. Attending Participation: I personally performed the entire procedure. Electronically signed by Pietro Peguero MD Pietro Peguero M.D. 05/18/2021 3:47:59 PM . Number of Addenda: 0 Note Initiated On: 05/18/2021 3:05 PM Recognized by the [employer] for promoting quality in endoscopy Pietro Peguero MD ENDOSCOPY PROCEDURES Final Result from Last 3 Months or Most Recently Relevant to Health Maintenance Insurance [facility] CHOICE PLUS [facility] CHOICE PLUS [facility] CHOICE PLUS [facility] CHOICE PLUS Care Teams Rehabilitation Team Lead Relationship Specialty Start Date End Date Tacos Ochoa MD PCP - General 06/24/20
--- OUTSIDE RECORDS SUMMARY | 2025-07-29 14:31 | XMS_ITS | Encounter Summary ---
Author Organization [facility] Address [address] [place] [address] Care Team Providers Care Wire Setter Name Role Phone Bret Fraser MD Primary Care Provider [phone] Encounter Details Date Type Department Care Team (Latest Contact Info) Description 12/12/2002 Outpatient Historical [facility] Sandeep Woo MD [address] [facility] [address] [place] [address] ELDER PRIMIGRAVID-ANTEPART UM (Primary Dx) Social History Tobacco Use Types Packs/Day Years Used Date Smoking Tobacco: Never Assessed Comments Unknown Sex and Gender Information Value Date Recorded Sex Assigned at Not on file Legal Sex Female 5:01 AM ACID PUMP OPERATOR Gender Identity Not on file Sexual Orientation Not on file documented as of this encounter Plan of Treatment Not on file documented as of this encounter Procedures Procedure Name Priority Date/Time Associated Diagnosis Comments POC GLUCOSE Routine 12/13/2005 7:05 AM ACID PUMP OPERATOR documented in this encounter Results * POC GLUCOSE (12/13/2005 7:05 AM ACID PUMP OPERATOR) GLUCOSE POC Invalid Result 65 - 109 INTERFACE SYSTEM Comment:incorrect fin#, pt c redited 12/13/2005 7:05 AM ACID PUMP OPERATOR us Sandeep Woo MD POINT OF CARE TESTING Final Re sult INTERFACE SYSTEM Refer to clinic/hospital department documented in this encounter Visit Diagnoses Diagnosis Elderly primigravida, antepartum- Primary documented in this encounter Care Teams Wire Setter Relationship Specialty Start Date End Date Bret Fraser MD [address] [place] [address] PCP - General Internal Medicine 05/28/24 documented as of this encounter
--- OUTSIDE RECORDS SUMMARY | 2025-07-29 14:31 | XMS_ITS | Encounter Summary ---
Author Organization [facility] - [facility] Address Formerly [facility] [place] [address] Care Team Providers Care Clinical Informatics Director Name Role Phone Bret Fraser MD Primary Care Provider [phone] Encounter Details Date Type Department Care Team (Latest Contact Info) Description 06/03/2025 Results Follow-Up [facility] Medical Group Multispecialty Care - [place] [address] [address] [address] [place] [address] Bret Fraser MD [address] [place] [address] [id number] URINALYSIS AUTO DIP Social History Tobacco Use [...] than three times a week 05/30/2025 Attends Yarsanism Services Not on file 05/30 Active Member [...] any time in the past 12 m [facility], were you homeless or living in [...] st Contact Info) Description 12/01/2025 8:40 AM CHALK EXTRUDING MACHINE OPERATOR Office Visit [facility] Medical [facility] Multispecialty Care - [address] [address] [address] [address] [place] [address] Bret Fraser MD [address] [place] [address] documented as of this encounter Visit Diagnoses Not on filedocumented in this encounter Additional Health Concerns Assessment Noted Time PHQ-9 Depression Total Score: 0 05/30/20 25 9:38 AM CDT documented as of this encounter Care Teams Clinical Informatics Director Relationship Specialty Start Date End Date Bret Fraser MD [address] [place] [address] PCP - General INTERNAL MEDICINE 05/31/22 documented as of this encounter
--- OUTSIDE RECORDS SUMMARY | 2025-07-29 14:31 | XMS_ITS | Encounter Summary ---
Author Organization [facility] Address [address] [place] [address] Care Team Providers Care Social Problems Specialist Name Role Phone Bret Fraser MD Primary Care Provider [phone] Encounter Details Date Type Department Care Team (Latest Contact Info) Description 03/24/2003 Outpatient [facility] Sandeep Woo MD [address] [place] [address] ELDER PRIMIGRAVID-ANTEPART UM (Primary Dx) Social History Tobacco Use Types Packs/Day Years Used Date Smoking Tobacco: Never Assessed Comments Unknown Sex and Gender Information Value Date Recorded Sex Assigned at Not on file Legal Sex Female 5:01 AM DREDGE MATE Gender Identity Not on file Sexual Orientation Not on file documented as of this encounter Plan of Treatment Not on file documented as of this encounter Visit Diagnoses Diagnosis Elderly primigravida, antepartum- Primary documented in this encounter Care Teams Social Problems Specialist Relationship Specialty Start Date End Date Bret Fraser MD [address] [place] [address] PCP - General Internal Medicine 05/28/24 documented as of this encounter
--- OUTSIDE RECORDS SUMMARY | 2025-07-29 14:31 | XMS_ITS | Encounter Summary ---
Author Organization [facility] Address [address] [place] [address] Care Team Providers Care Shirt Line Operator Name Role Phone Bret Fraser MD Primary Care Provider [phone] Encounter Details Date Type Department Care Team (Latest Contact Info) Description 05/08/2009 Outpatient Historical [facility] Dflt Department Kady Jones MD [address] [place] [address] [place] [address] Encounter for Antineoplastic Chemotherapy Social History Tobacco Use Types Packs/Day Years Used Date Smoking Tobacco: Never Assessed Comments No Sex and Gender Information Value Date Recorded Sex Assigned at Not on file Legal Sex Female 5:01 AM MAIL OPENER Gender Identity Not on file Sexual Orientation Not on file documented as of this encounter Plan of Treatment Not on file documented as of this encounter Visit Diagnoses Diagnosis Encounter for antineoplastic chemotherapy documented in this encounter Care Teams Shirt Line Operator Relationship Specialty Start Date End Date Bret Fraser MD [address] [place] [address] PCP - General Internal Medicine 05/28/24 documented as of this encounter
--- OUTSIDE RECORDS SUMMARY | 2025-07-29 14:31 | XMS_ITS | Encounter Summary ---
Author Organization [facility] Address [address] [place] [address] Care Team Providers Care Organizational Effectiveness Director Name Role Phone Bret Fraser MD Primary Care Provider [phone] Encounter Details Date Type Department Care Team (Late st Contact Info) Description 12/12/2002 Outpatient Historical [facility] Maternal and Ground Floor S [facility] [address] [place] [address] Palmer Argueta MD [address] [facility] [address] [place] [address] Social History Tobacco Use Types Packs/Day Years Used Date Smoking Tobacco: Never Assessed Comments Unknown Sex and Gender Information Value Date Recorded Sex Assigned at Not on file Legal Sex Female 5:01 AM DANCING MASTER Gender Identity Not on file Sexual Orientation Not on file documented as of this encounter Plan of Treatment Not on file documented as of this encounter Visit Diagnoses Not on filedocumented in this encounter Care Teams Organizational Effectiveness Director Relationship Specialty Start Date End Date Bret Fraser MD [address] [place] [address] PCP - General Internal Medicine 05/28/24 documented as of this encounter
--- OUTSIDE RECORDS SUMMARY | 2025-07-29 14:31 | XMS_ITS | Encounter Summary ---
Author Organization [facility] Address [address] [place] [address] Care Team Providers Care Song Plugger Name Role Phone Bret Fraser MD Primary Care Provider [phone] Encounter Details Date Type Department Care Team (Latest Contact Info) Description 02/20/2003 Outpatient [facility] Sandeep Woo MD [address] [place] [address] ELDER PRIMIGRAVID-ANTEPART UM (Primary Dx) Social History Tobacco Use Types Packs/Day Years Used Date Smoking Tobacco: Never Assessed Comments Unknown Sex and Gender Information Value Date Recorded Sex Assigned at Not on file Legal Sex Female 5:01 AM CAVALRY OFFICER Gender Identity Not on file Sexual Orientation Not on file documented as of this encounter Plan of Treatment Not on file documented as of this encounter Visit Diagnoses Diagnosis Elderly primigravida, antepartum- Primary documented in this encounter Care Teams Song Plugger Relationship Specialty Start Date End Date Bret Fraser MD [address] [place] [address] PCP - General Internal Medicine 05/28/24 documented as of this encounter
--- OUTSIDE RECORDS SUMMARY | 2025-07-29 14:31 | XMS_ITS | Encounter Summary ---
Author Organization [facility] Address [address] [place] [address] Care Team Providers Care Seconds Handler Name Role Phone Bret Fraser MD Primary Care Provider [phone] Encounter Details Date Type Department Care Team (Late st Contact Info) Description 01/09/2003 Outpatient Historical [facility] Maternal and Ground Floor S [facility] [address] [place] [address] Palmer Argueta MD [address] [facility] [address] [place] [address] Social History Tobacco Use Types Packs/Day Years Used Date Smoking Tobacco: Never Assessed Comments Unknown Sex and Gender Information Value Date Recorded Sex Assigned at Not on file Legal Sex Female 5:01 AM ADVERTISING SOLICITOR Gender Identity Not on file Sexual Orientation Not on file documented as of this encounter Plan of Treatment Not on file documented as of this encounter Visit Diagnoses Not on filedocumented in this encounter Care Teams Seconds Handler Relationship Specialty Start Date End Date Bret Fraser MD [address] [place] [address] PCP - General Internal Medicine 05/28/24 documented as of this encounter
--- OUTSIDE RECORDS SUMMARY | 2025-07-29 14:31 | XMS_ITS | Encounter Summary ---
Author Organization [facility] Address [address] [place] [address] Care Team Providers Care Healthcare Administration Internship Name Role Phone Bret Fraser MD Primary Care Provider [phone] Encounter Details Date Type Department Care Team (Late st Contact Info) Description 05/29/2009 Outpatient Historical [facility] [address] Kady Jones MD [address] [place] [address] [place] [address] Malignant Neoplasm of Breast (Female), Unspecified Site (CMS/HCC) Social History Tobacco Use Types Packs/Day Years Used Date Smoking Tobacco: Never Alcohol Use Standard Drinks/Week Comments Yes 0 (1 standard drink = 0.6 oz pur e alcohol) rare Comments No Sex and Gender Information Value Date Recorded Sex Assigned at Not on file Legal Sex Female 5:01 AM SKIN PASS OPERATOR Gender Identity Not on file Sexual Orientation Not on file documented as of this encounter Plan of Treatment Not on file documented as of this encounter Visit Diagnoses Diagnosis Malignant neoplasm of breast (female), unspecified site documented in this encounter Care Teams Healthcare Administration Internship Relationship Specialty Start Date End Date Bret Fraser MD [address] [place] [address] PCP - General Internal Medicine 05/28/24 documented as of this encounter
--- OUTSIDE RECORDS SUMMARY | 2025-07-29 14:31 | XMS_ITS | Encounter Summary ---
Author Organization [facility] Address [address] [place] [address] Care Team Providers Care Fire Lieutenant Marine Name Role Phone Bret Fraser MD Primary Care Provider Encounter Details Date Type Department Care Team (Latest Contact Info) Description 01/01/2024 Fifteen Reasonst Message Enc [facility] Medical Group Multispecialty Care - [place] [address] [address] [address] [place] [address] Bret Fraser MD [address] [facility] [address] [place], [place] [phone] me-right flank pain Social History Tobacco Use [...] st Contact Info) Description 12/01/2025 8:40 AM SWEATBAND DECORATING MACHINE OPERATOR Office Visit [facility] Medical [facility] Multispecialty Care - [address] [address] [address] [address] [place] [address] Bret Fraser MD [address] [place] [address] documented as of this encounter Visit Diagnoses Not on filedocumented in this encounter Additional Health Concerns Assessment Noted Time PHQ-9 Depression Total Score: 2 11/29/19 24 7:52 AM SWEATBAND DECORATING MACHINE OPERATOR documented as of this encounter Care Teams Fire Lieutenant Marine Relationship Specialty Start Date End Date Bret Fraser MD [address] [place] [address] PCP - General INTERNAL MEDICINE 05/31/22 documented as of this encounter
--- OUTSIDE RECORDS SUMMARY | 2025-07-29 14:31 | XMS_ITS | Clinical Summary ---
Author Organization [facility] Address [address] [place] [address] Care Team Providers Care Inside Horticultural Specialty Grower Name Role Phone Unavailable Primary Care Provider Unavailabl e Social History Tobacco Use Types Packs/Day Years Used Date Smoking Tobacco: Never Assessed Comments Unknown Sex and Gender Information Value Date Recorded Sex Assigned at Not on file Legal Sex Female 12:48 PM ER TECH Gender Identity Not on file Sexual Orientation [...]
--- OUTSIDE RECORDS SUMMARY | 2025-07-29 14:31 | XMS_ITS | Encounter Summary ---
Author Organization [facility] Address [address] [place] [address] Care Team Providers Care Early Childhood Lead Teacher Name Role Phone Bret Fraser MD Primary Care Provider [phone] Encounter Details Date Type Department Care Team (Latest Contact Info) Description 06/09/2009 Outpatient Historical [facility] Dflt Department Kady Jones MD [address] [place] [address] [place] [address] Encounter for Antineoplastic Chemotherapy Social History Tobacco Use Types Packs/Day Years Used Date Smoking Tobacco: Never Alcohol Use Standard Drinks/Week Comments Yes 0 (1 standard drink = 0.6 oz pur e alcohol) rare Comments No Sex and Gender Information Value Date Recorded Sex Assigned at Not on file Legal Sex Female 5:01 AM BUFFING LINE SET UP WORKER Gender Identity Not on file Sexual Orientation Not on file documented as of this encounter Plan of Treatment Not on file documented as of this encounter Visit Diagnoses Diagnosis Encounter for antineoplastic chemotherapy documented in this encounter Care Teams Early Childhood Lead Teacher Relationship Specialty Start Date End Date Bret Fraser MD [address] [place] [address] PCP - General Internal Medicine 05/28/24 documented as of this encounter
--- OUTSIDE RECORDS SUMMARY | 2025-07-29 14:31 | XMS_ITS | Encounter Summary ---
Author Organization [facility] Address [address] [place] [address] Care Team Providers Care Director Of Flight Operations Name Role Phone Bret Fraser MD Primary Care Provider [phone] Encounter Details Date Type Department Care Team (Late st Contact Info) Description 10/11/2023 MyChart Message Enc [address] [address] Bret Fraser MD [address] [place] [address] Cruise Social History Tobacco Use Types Packs/Day [...] st Contact Info) Description 12/01/2025 8:40 AM INDUSTRIAL ROOFER HELPER Office Visit [facility] Medical [facility] Multispecialty [address] [place] [address] Bret Fraser MD [address] [address] documented as of this encounter Visit Diagnoses Not on filedocumented in this encounter Care Teams Director Of Flight Operations Relationship Specialty Start Date End Date Bret Fraser MD [address] [address] PCP - General INTERNAL MEDICINE 05/31/22 documented as of this encounter
--- OUTSIDE RECORDS SUMMARY | 2025-07-29 14:31 | XMS_ITS | Encounter Summary ---
Author Organization [facility] Address [address] [place] [address] Care Team Providers Care Market Asset Protection Manager Name Role Phone Bret Fraser MD Primary Care Provider [phone] Encounter Details Date Type Department Care Team (Late st Contact Info) Description 02/20/2003 Outpatient Historical [facility] Maternal and Ground Floor S [facility] [address] [place] [address] Naida Wall MD [address] [place] [address] Social History Tobacco Use Types Packs/Day Years Used Date Smoking Tobacco: Never Assessed Comments Unknown Sex and Gender Information Value Date Recorded Sex Assigned at Not on file Legal Sex Female 5:01 AM POTABLE WATER TREATMENT OPERATOR Gender Identity Not on file Sexual Orientation Not on file documented as of this encounter Plan of Treatment Not on file documented as of this encounter Visit Diagnoses Not on filedocumented in this encounter Care Teams Market Asset Protection Manager Relationship Specialty Start Date End Date Bret Fraser MD [address] [place] [address] PCP - General Internal Medicine 05/28/24 documented as of this encounter
--- OUTSIDE RECORDS SUMMARY | 2025-07-29 14:31 | XMS_ITS | Encounter Summary ---
Author Organization [facility] Address [facility] [place] [address] Care Team Providers Care Probation Officer Name Role Phone Bret Fraser MD Primary Care Provider [phone] Encounter Details Date Type Department Care Team (Latest Contact Info) Description 06/02/2025 Results Follow-Up [facility] Medical Group Multispecialty Care - [place] [address] [address] [address] [place] [address] [place] [address] [place] [address] [phone] LIPID PANEL, COMPREHENSIVE METABOLIC PANEL, CBC W/DIFF [...] than three times a week 05/30/2025 Attends Scientologist Services Not on file 05/30 Active Member [...] time in the past 12 m [facility], were you homeless or living in a [facility] (including now)? No 05/30/2025 Comments No Sex and Gender Information Value Date Recorded Sex Assigned at Not on file Legal Sex Female 7:36 PM CDT Gender Identity Not on file Sexual Orientation Not on file documented as of this encounter Plan of Treatment Upcoming Encounters Date Type Department Care Team (Late st Contact Info) Description 12/01/2025 8:40 AM RENTAL CAR DELIVERER Office Visit [facility] Multispecialty Care [address] [address] [address] [place] [address] Bret Fraser MD [address] [place] [address] documented as of this encounter Visit Diagnoses Not on filedocumented in this encounter Additional Health Concerns Assessment Noted Time PHQ-9 Depression Total Score: 0 05/30/20 25 9:38 AM CDT documented as of this encounter Care Teams Probation Officer Relationship Specialty Start Date End Date Bret Fraser MD [address] [place] [address] PCP - General INTERNAL MEDICINE 05/31/22 documented as of this encounter
--- OUTSIDE RECORDS SUMMARY | 2025-07-29 14:31 | XMS_ITS | Clinical Summary ---
Author Organization [facility] Address [address] [place] [address] Care Team Providers Care Corsets Salesperson Name Role Phone Bret Fraser MD Primary Care Provider [phone] Allergies Active Allergy Reactions Criticality Noted Date [...] [address] [place] [address] Other: VENECIA Morales Problem Noted Date Diagnosed Date History of left breast cancer 04/17/2009 Overview (06/04/2025): 08/13/08 LEFT breast cancer IDC T1c Ni+ M0 ER 21% [place]- HER2 4.4 BRCA 1/2 negative 08/27/08 LEFT [...] year Assessment & Plan (12/12/2011 2:13 PM MANUFACTURING PLANNER): 3 1/2 years out On TMX Left neck nodes - tiny - gone now HAs chronic - doesn't want scan ROV 6 months then yearly Assessment & Plan (06/13/2011 11:09 AM CDT): Will be 3 yrs out in Jul Has had spotting; still on TMX 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 [employer] [facility] 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 - wanted xanax - gave 60 Saturday June 18, 2011 On AI until 2013 ROV 6 months Assessment & Plan (03/14/2011 4:07 PM CDT): 2 1/2 yr out Ovarian cyst - u/s next week 2 weeks ago abd pain; on Nexium, crampy after meals b/l abd U/s RUQ today in [place] On TMX - will stop now and give AI LMP February 2010; hot flashes VIt D 44 in December - recheck Didn't get brain MRI Discussed AI - FEMARA script B/l solitary inguinal LNs; less then 1cm - await pelivc u/s PET if anything is abnormal ROV 3 momths Assessment & Plan (09/09/2010 4:22 PM MANUFACTURING PLANNER): 2 yrs out On TMX Port out [...] removal Assessment & Plan (12/04/2009 9:43 AM MANUFACTURING PLANNER): Last Herceptin HAs - left sided; goes up skull; relieved with chiropractor; has gone on for a while On TMX for 7 months ROV 3 months Assessment & Plan (10/20/2009 10:54 AM MANUFACTURING PLANNER): On Herceptin until Nov - has 3 more treatments TMX going ok. 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 under LEFT curtain worker; no nodules or abnormalities ROV 3 weeks herceptin; 6 weeks MD Assessment & Plan (09/30/2009 2:11 PM MANUFACTURING PLANNER): 8-9 days of pain under arms; has been carrying son who is in cast Nothing on exam Keep regular appt Assessment & Plan (09/04/2009 2:32 PM MANUFACTURING PLANNER): Chest cold; on Abx TMX with hot [...] Abstract 06/04/2025 10:00 AM CDT Initial consult [facility] [address] [place] [address] Latanya Hoskins MD [place], [place], [...] on file Legal Sex Female 5:01 AM MANUFACTURING PLANNER Gender Identity Not on file Sexual [...] 02/01/2016 ZOSTER VACCINE Completed 04/22/2022, 02/07/2022 Insurance [facility] Altierre Wu[employer] [id number] Care Teams Corsets Salesperson Relationship Specialty Start Date End Date Bret Fraser MD [address] [place] [address] PCP - General Internal Medicine 05/28/24
[2025-07-29 16:31] VITALS: BP 134/93; PULSE 76; RESP 16; TEMP 36.7; O2SAT 100
== END 2025-07-29 16:33 | disposition home or self-care (01) ==
PROVIDERS: Emergency Provider Physician Assistant; PCP Internal Medicine
DX: K85.90 Acute pancreatitis without necrosis or infection, unspecified (principal); K21.9 Gastro-esophageal reflux disease without esophagitis; F41.9 Anxiety disorder, unspecified; Z85.3 Personal history of malignant neoplasm of breast; Z92.21 Personal history of antineoplastic chemotherapy; Z90.13 Acquired absence of bilateral breasts and nipples; K76.0 Fatty (change of) liver, not elsewhere classified
CPT/HCPCS: 36415; 74177; 76705; 80053; 81001; 81025; 83690; 84484; 85025; 87086; 93005; 96360; 96361; 99284; J7030; Q9967

== ENCOUNTER 2025-08-30 08:19 | Outpatient (CLI) | payer OTHER, SELFPAY ==
--- OUTSIDE RECORDS SUMMARY | 2007-08-20 07:45 | XMS_ITS | Continuity of Care Document ---
Author Organization [facility] Address [address] [place] [address] [place] [address] Phone Care Team Providers Care Restaurant Host/Hostess Name Role Phone Sabino Barba Unavailable Unavailable Procedures Procedure Date Eye Exam, New Patient Advance Directives Directive Yes / No Effective Date File Name No Information Encounters Encounter Description Practice Location Reason(s) For Visit Diagnoses Date Provider Providers Copied on Encounter [facility], [address] [place] [address] [address], [place], [place], [id number], [place] tel:[phone] [facility] No Information Jameson Gallo. [address], [place], [facility], [place]. tel:[phone] Referring Provider: Tacos Ochoa MD, [address], [facility]. tel:[phone] Family History Family Member Type Diagnosis Age At Onset No Information Payers Payer name Insurance type Covered republican ID Gisel vazquez(s) [facility] CI [id number] Social History Type Description Quantity Date Captured Comments Sex Female Smoking Status No Information Chief Complaint And Reason For Visit No Information Reason For Referral Reason For Referral No Information History Of Present Illness Encounter Date Complaint History Of Prese nt Illness No Information Functional Status Date Functional Assessmen t No Information Instructions Date Instruction Additional Infor mation No Information Assessments Type Assessment Date No Information Patient Care Teams Name Effective Dates (start - stop) Status Members No Information
--- NOTE | ~2025-08-30 | MR_ITS ---
EXAMINATION: MR MRCP wo/w con/w 3D wo ind DATE: 08/30/2025 09:50 INDICATION: Acute pancreatitis without necrosis or infection TECHNIQUE: Magnetic resonance imaging (MRI) of the abdomen was performed without and with 14 mL Multihance intravenous contrast. Sequences included coronal T2- weighted SS-FSE, coronal T2-weighted FS SS-FSE, coronal T2-weighted FS FIESTA, axial T2-weighted FS FIESTA, axial T2-weighted FIESTA, sagittal T2-weighted SS- FSE, axial T1-weighted dual-echo FSPGR, axial T2-weighted SS-FSE, axial T1- weighted LAVA, axial T2-weighted STIR FSE. Thick-slab T2-weighted FRFSE-XL images were obtained for magnetic resonance cholangiopancreatography (MRCP). Rotating maximum intensity projection 3-D reconstructions of the volumetric data were created by the technologist. Postcontrast sequences included a time course of axial T1-weighted LAVA. COMPARISON: CT dated 07/29/2025 FINDINGS: ABDOMEN MRI: Heart size is normal. No pericardial or pleural effusion. Bilateral breast implants. Liver, gallbladder, spleen, pancreas, bilateral adrenal glands and kidneys are normal. Visualized portions of bowels are unremarkable with no abnormal wall thickening or obstruction. No pathologically enlarged abdominal or upper pelvic lymphadenopathy. Severe spondylosis at L5-S1 with otherwise mild spondylosis and more cephalad lumbar and lower thoracic spine. ABDOMEN MRCP: No intrahepatic biliary ductal dilation. The common hepatic and common bile ducts are normal measuring up to 4-5 mm in maximal diameter. No evident cholelithiasis/choledocholithiasis, impinging masses, strictures or other mucosal irregularities central biliary tree or extra hepatic bile ducts. IMPRESSION: 1. Unremarkable MRCP with no cholelithiasis/choledocholithiasis or biliary ductal dilation. Reviewed, dictated and finalized at location A. RAL AGENT IMPRESSION: 1. Unremarkable MRCP with no cholelithiasis/choledocholithiasis or biliary duct al dilation.
--- OUTSIDE RECORDS SUMMARY | 2025-08-30 08:24 | XMS_ITS | Encounter Summary ---
Author Organization [facility] Address [address] [place] [address] Care Team Providers Care Software Engineer Advisor Name Role Phone Bret Fraser MD Primary Care Provider [phone] Encounter Details Date Type Department Care Team (Late st Contact Info) Description 12/25/2024 MyChart Message Enc [facility] Multispecialty Care - [place] [address] [address] [place] [address] [place] [address] [place] [address] [address] [place], [place] [id number] bone density Social History Tobacco Use Types [...] Care Team (Late st Contact Info) Description 11/12/2025 11:20 AM STEEL RULE DIE MAKER Office Visit [facility] [address] [address] Bret Fraser MD [address] [address] Chaparrita Saleem, GENE 3 [facility] [address] [place] [address] 12/01/2025 8:40 AM STEEL RULE DIE MAKER Office Visit [facility] Multispecialty Care - [place] [address] [address] [place] [address] Bret Fraser MD [facility] [address] [address] documented as of this encounter Visit Diagnoses Not on filedocumented in this encounter Additional Health Concerns Assessment Noted Time PHQ-9 Depression Total Score: 0 05/31/20 24 8:30 AM CDT documented as of this encounter Care Teams Software Engineer Advisor Relationship Specialty Start Date End Date Bret Fraser MD [address] [place] [address] PCP - General INTERNAL MEDICINE 05/31/22 documented as of this encounter
--- OUTSIDE RECORDS SUMMARY | 2025-08-30 08:24 | XMS_ITS | Encounter Summary ---
Author Organization [facility] Address [address] [place] [address] Care Team Providers Care Material Assistant Name Role Phone Bret Fraser MD Primary Care Provider [phone] Encounter Details Date Type Department Care Team (Latest Contact Info) Description 09/03/2024 Paybookhart Message Enc [facility] Multispecialty Care - [place] [address] [address] [address] [place] [address] [place] [address] [place] [address] [address] [place], [place] [id number] DIANELYS TYLER PHYSICAL FORM Social History Tobacco Use Types [...] Encounters Date Type Department Care Team (Late Contact Info) Description 11/12/2025 11:20 AM SITE COORDINATOR Office Visit [facility] [place] [phone] Bret Fraser MD [address] [address] Chaparrita Saleem, GENE 3 [facility] [address] [place] [address] 12/01/2025 8:40 AM SITE COORDINATOR Office Visit [facility] Multispecialty Care - [place] [address] [address] [place] [address] Bret Fraser MD [facility] [address] documented as of this encounter Visit Diagnoses Not on filedocumented in this encounter Additional Health Concerns Assessment Noted Time PHQ-9 Depression Total Score: 0 05/31/20 24 8:30 AM CDT documented as of this encounter Care Teams Material Assistant Relationship Specialty Start Date End Date Bret Fraser MD [address] [place] [address] PCP - General INTERNAL MEDICINE 05/31/22 documented as of this encounter
--- OUTSIDE RECORDS SUMMARY | 2025-08-30 08:25 | XMS_ITS | Encounter Summary ---
Author Organization [facility] Address [address] [place] [address] Care Team Providers Care Boilermaker Pipe Fitter Name Role Phone Bret Fraser MD Primary Care Provider [phone] Encounter Details Date Type Department Care Team (Late st Contact Info) Description 03/28/2003 Outpatient Historical [facility] Maternal and Ground Floor S [facility] [address] [place] [address] Naida Wall MD [address] [place] [address] Social History Tobacco Use Types Packs/Day Years Used Date Smoking Tobacco: Never Assessed Comments Unknown Sex and Gender Information Value Date Recorded Sex Assigned at Not on file Legal Sex Female 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
--- OUTSIDE RECORDS SUMMARY | 2025-08-30 08:25 | XMS_ITS | Encounter Summary ---
Author Organization [facility] Address [address] [place] [address] Care Team Providers Care Litigation Counsel Name Role Phone Bret Fraser MD Primary Care Provider [phone] Encounter Details Date Type Department Care Team (Late st Contact Info) Description 01/13/2003 Outpatient Historical [facility] Sandeep Woo MD [address] [place] [phone] Social History Tobacco Use Types Packs/Day Years Used Date Smoking Tobacco: Never Assessed Comments Unknown Sex and Gender Information Value Date Recorded Sex Assigned at Not on file Legal Sex Female 5:01 AM FLAT FOLDER Gender Identity Not on file Sexual Orientation Not on file documented as of this encounter Plan of Treatment Not on file documented as of this encounter Visit Diagnoses Not on filedocumented in this encounter Care Teams Litigation Counsel Relationship Specialty Start Date End Date Bret Fraser MD [address] [place] [address] PCP - General Internal Medicine 05/28/24 documented as of this encounter
--- OUTSIDE RECORDS SUMMARY | 2025-08-30 08:25 | XMS_ITS | Encounter Summary ---
Author Organization [facility] Address [address] [place] [address] Care Team Providers Care Gore Stitcher Name Role Phone Bret Fraser MD Primary Care Provider [phone] Encounter Details Date Type Department Care Team (Late st Contact Info) Description 05/29/2009 Outpatient Historical [facility], [address] Kady Jones MD [address] [place] [address] [place] [address] Malignant Neoplasm of Breast (Female), Unspecified Site (CMS/HCC) Social History Tobacco Use Types Packs/Day Years Used Date Smoking Tobacco: Never Alcohol Use Standard Drinks/Week Comments Yes 0 (1 standard drink = 0.6 oz pur e alcohol) rare Comments No Sex and Gender Information Value Date Recorded Sex Assigned at Not on file Legal Sex Female 5:01 AM REHABILITATION WORKER Gender Identity Not on file Sexual Orientation Not on file documented as of this encounter Plan of Treatment Not on file documented as of this encounter Visit Diagnoses Diagnosis Malignant neoplasm of breast (female), unspecified site documented in this encounter Care Teams Gore Stitcher Relationship Specialty Start Date End Date Bret Fraser MD [address] [place] [address] PCP - General Internal Medicine 05/28/24 documented as of this encounter
--- OUTSIDE RECORDS SUMMARY | 2025-08-30 08:25 | XMS_ITS | Encounter Summary ---
Author Organization [facility] Address [address] [place] [address] Care Team Providers Care Database Management Specialist Name Role Phone Bret Fraser MD Primary Care Provider [phone] Encounter Details Date Type Department Care Team (Late st Contact Info) Description 12/11/2023 MyChart Message Enc [facility] Multispecialty Care - [place] [address] [address] [place] [address] [place] [address] [place] [address] [address] [place], [place] [phone] sinus infection Social History Tobacco Use Types [...] st Contact Info) Description 11/12/2025 11:20 AM FOURDRINIER WIRE WEAVER Office Visit [facility] [address] [address] Bret Fraser MD [address] [address] Chaparrita Saleem, GENE 3 [facility] [address] [place] [address] 12/01/2025 8:40 AM FOURDRINIER WIRE WEAVER Office Visit [facility] Multispecialty Care - [place] [address] [address] [place] [address] Bret Fraser MD [facility], [address] [address] documented as of this encounter Visit Diagnoses Not on filedocumented in this encounter Additional Health Concerns Assessment Noted Time PHQ-9 Depression Total Score: 2 11/29/19 24 7:52 AM FOURDRINIER WIRE WEAVER documented as of this encounter Care Teams Database Management Specialist Relationship Specialty Start Date End Date Bret Fraser MD [address] [place] [address] PCP - General INTERNAL MEDICINE 05/31/22 documented as of this encounter
--- OUTSIDE RECORDS SUMMARY | 2025-08-30 08:25 | XMS_ITS | Encounter Summary ---
Author Organization [employer] Address [address] [place] [address] Care Team Providers Care Evp Sales Name Role Phone Bret Fraser MD Primary Care Provider [phone] Encounter Details Date Type Department Care Team (Latest Contact Info) Description 04/25/2003 Outpatient Historical [facility] Sandeep Woo MD [address] [place] [address] ELDER PRIMIGRAVID-ANTEPART UM (Primary Dx) Social History Tobacco Use Types Packs/Day Years Used Date Smoking Tobacco: Never Assessed Comments Unknown Sex and Gender Information Value Date Recorded Sex Assigned at Not on file Legal Sex Female 5:01 AM ETHNOARCHAEOLOGIST Gender Identity Not on file Sexual Orientation Not on file documented as of this encounter Plan of Treatment Not on file documented as of this encounter Visit Diagnoses Diagnosis Elderly primigravida, antepartum- Primary documented in this encounter Care Teams Evp Sales Relationship Specialty Start Date End Date Bret Fraser MD [address] [place] [address] PCP - General Internal Medicine 05/28/24 documented as of this encounter
--- OUTSIDE RECORDS SUMMARY | 2025-08-30 08:25 | XMS_ITS | Clinical Summary ---
Author Organization [facility] Address [address] [place] [address] Care Team Providers Care Document Preparer Microfilming Name Role Phone Bret Fraser MD Primary Care Provider [phone] Allergies Active Allergy Reactions Criticality Noted Date [...] [address] [place] [address] Other: VENECIA Morales Problem Noted Date Diagnosed [...] year Assessment & Plan (12/12/2011 2:13 PM SURGICAL TECH): 3 1/2 years out On TMX Left neck nodes - tiny - gone now HAs chronic - doesn't want scan ROV 6 months then yearly Assessment & Plan (06/13/2011 11:09 AM CDT): Will be 3 yrs out in Jul Has had spotting; still on TMX 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 - wanted 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 - gave 60 Saturday June 18, 2011 On AI until 2013 ROV 6 months Assessment & Plan (03/14/2011 4:07 PM CDT): 2 1/2 yr out Ovarian cyst - u/s next week 2 weeks ago abd pain; on Nexium, crampy after meals b/l abd U/s RUQ today in [place] On TMX - will stop now and give AI LMP February 2010; hot flashes VIt D 44 in December - recheck Didn't get brain MRI Discussed AI - FEMARA script B/l solitary inguinal LNs; less then 1cm - await pelivc u/s PET if anything is abnormal ROV 3 momths Assessment & Plan (09/09/2010 4:22 PM SURGICAL TECH): 2 yrs out On TMX Port out [...] removal Assessment & Plan (12/04/2009 9:43 AM SURGICAL TECH): Last Herceptin HAs - left sided; goes up skull; relieved with chiropractor; has gone on for a while On TMX for 7 months ROV 3 months Assessment & Plan (10/20/2009 10:54 AM SURGICAL TECH): On Herceptin until Nov - has 3 more treatments TMX going ok. 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 under LEFT machine molder; no nodules or abnormalities ROV 3 weeks herceptin; 6 weeks MD Assessment & Plan (09/30/2009 2:11 PM SURGICAL TECH): 8-9 days of pain under arms; has been carrying son who is in cast Nothing on exam Keep regular appt Assessment & Plan (09/04/2009 2:32 PM SURGICAL TECH): Chest cold; on Abx TMX with hot [...] Encounters Date Type Department Care Team Description 08/20/2025 External Device Data STL ABSTRACTION Provider, Abstract 08/19/2025 External Device Data ST[facility] ABSTRACTION Provider, Abstract 06/11/2025 External Device Data ST[facility] ABSTRACTION Provider, Abstract 06/10/2025 External Device Data STL ABSTRACTION Provider, Abstract 06/10/2025 External Device Data STL ABSTRACTION Provider, Abstract 06/04/2025 10:00 AM CDT Initial consult [facility] [address] [place] [address] Latanya Hoskins MD Naate, Nueki, MD History of left breast cancer (Primary Dx) from Last 3 Months Family History Medical [...] on file Legal Sex Female 5:01 AM SURGICAL TECH Gender Identity Not on file Sexual [...] 02/01/2016 ZOSTER VACCINE Completed 04/22/2022, 02/07/2022 Insurance [facility] [employer] [facility] [employer] [id number] Care Teams Document Preparer Microfilming Relationship Specialty Start Date End Date Bret Fraser MD [address] [place] [address] PCP - General Internal Medicine 05/28/24
--- OUTSIDE RECORDS SUMMARY | 2025-08-30 08:25 | XMS_ITS | Encounter Summary ---
Author Organization [facility] Address [address] [place] [address] Care Team Providers Care Fence Maker Name Role Phone Bret Fraser MD Primary Care Provider [phone] Encounter Details Date Type Department Care Team (Late st Contact Info) Description 12/12/2002 Outpatient Historical [facility] Maternal and Ground Floor S [facility] [address] [place] [address] Palmer Argueta MD [address] [facility] [address] [place] [address] Social History Tobacco Use Types Packs/Day Years Used Date Smoking Tobacco: Never Assessed Comments Unknown Sex and Gender Information Value Date Recorded Sex Assigned at Not on file Legal Sex Female 5:01 AM WOMEN'S APPAREL SALESPERSON Gender Identity Not on file Sexual Orientation Not on file documented as of this encounter Plan of Treatment Not on file documented as of this encounter Visit Diagnoses Not on filedocumented in this encounter Care Teams Fence Maker Relationship Specialty Start Date End Date Bret Fraser MD [address] [place] [address] PCP - General Internal Medicine 05/28/24 documented as of this encounter
--- OUTSIDE RECORDS SUMMARY | 2025-08-30 08:25 | XMS_ITS | Clinical Summary ---
Author Organization [facility] Address [address] [place] [address] Care Team Providers Care Machine Precision Etcher Name Role Phone Bret Fraser MD Primary Care Provider [phone] Allergies Active Allergy Reactions Criticality Noted Date [...] mouth daily. 90 capsule 1 5 Active Additional Information Patient not taking.Reported on 07/31/2025 escitalopram (LEXAPRO) 10 MG tabletIndication s:HANS (generalized anxiety disorder) Take 1 tablet (10 mg total) by mouth every morning. 90 tablet 1 5 Active denosumab (PROLIA) 60 MG/ML injectionIndicat ions:Osteoporosi s, unspecified osteoporosis type, unspecified pathological fracture presence Inject 1 mL (60 mg total) into the skin every 6 (six) months. Mail to: [address] [facility], [facility] [address]. 1 mL 1 5 Active Active Problems Problem Noted Date Diagnosed Date HANS (generalized anxiety disorder) 06/28/2022 ADD (attention deficit disorder) 06/28/2022 Hematuria 05/31/2022 Malignant neoplasm of breast 04/17/2009 Overview (05/31/2022): 08/13/08 LEFT breast cancer IDC T1c Ni+ M0 ER 21% WV- HER2 4.4 BRCA 1/2 negative 08/27/08 LEFT LUMP and slnd 09/26/08-11/27/08 AC x 4 and Taxotere and Herceptin until November 2009 02/26/09 b/l mastectomy 04/03/09 TMX Last Assessment & Plan: 5 years out On TMX 4 years Taking vit D monthly - due now Green smoothies now. 08/13/08 LEFT breast cancer IDC T1c Ni+ M0 ER 21% WV- HER2 4.4 BRCA 1/2 negative 08/27/08 LEFT LUMP and slnd 09/26/08-11/27/08 AC x 4 and Taxotere and Herceptin until November 2009 02/26/09 b/l mastectomy 04/03/09 TMX Last Assessment & Plan: 5 years out On TMX 4 years Taking vit D monthly - due now Green smoothies now. Encounters Date Type Department Care Team Description 08/05/2025 Results Follow-Up [facility] Multispecialty [facility] [place] [address] [facility] [address] [place], [place] [id number] Bret Fraser MD CBC W/DIFF AUTOMATED, LIPASE, COMPREHENSIVE METABOLIC PANEL, Additional followed-up results: 2 08/04/2025 3:20 PM CDT [facility] Only [facility] [place] [address] [place], [place] [id number] Bret Fraser MD 08/04/2025 - 08/04/2025 11:59 PM CDT Hospital Encounter [facility] [place] [address] Discharge Disposition: Home or Self Care (Routine Discharge) 08/04/2025 [facility] Only [facility] [place] [address] [place] [address] Jeni Baca MA 08/04/2025 Travel 07/31/2025 4:20 PM CDT [facility] [address] [place] [address] Bret Fraser MD ER F/U (Declined flu shot today, can't remember if she got it already or not ); Pancreatitis 07/31/2025 Scan [facility] Scanned, [facility] 07/31/2025 Travel 07/30/2025 MyChart Message [facility] [place] [address] [place] [address] Bret Fraser MD Pancreatitis 07/29/2025 Scan [facility] SRVCS Scanned, [facility] 06/09/2025 MyChart Message Enc [facility] [address] [place] [address] Bret Fraser MD Physician form to fill out 06/04/2025 Scan [facility] SRVCS Scanned, [facility] 06/03/2025 Results [facility] [address] [place] [address] Bret Fraser MD URINALYSIS AUTO DIP 06/02/2025 Telephone [facility] [place] [address] [place] [address] Bret Fraser MD Record Request 06/02/2025 Results [facility] [place] [address] [place] [address] Bret Fraser MD LIPID PANEL, COMPREHENSIVE METABOLIC PANEL, CBC W/DIFF AUTOMATED, Additional followed-up results: 3 05/30/2025 8:20 AM CDT Office Visit [facility] - [place] [address] [place] [address] Bret Fraser MD Physical 05/30/2025 Orders Only [facility] - [place] [address] [place] [address] Bret Fraser MD 05/30/2025 Travel from Last [...] or ex-partner? No 05/30/2025 Social Connection and Isolation Panel Answer Date Recorded In a typical week, how many times do you talk on the phone with family, friends, or neighbors? More than three times a week 05/30/2025 How often do you get togethe r with friends or relatives? More than three times a week 05/30/2025 Attends Scientology Services Not on file 05/30 Active Member [...] any time in the past 12 m [facility], were you homeless or living in a usp (including now)? No 05/30/2025 Comments No Sex and Gender Information Value Date Recorded Sex Assigned at Not on file Legal Sex Female 7:36 PM CDT Gender Identity Not on file Sexual Orientation Not on file Last Filed Vital Signs Vital Sign Reading Time Taken Comments Blood Pressure 137/82 07/31/2025 4:17 PM CDT Pulse 71 07/31/2025 4:17 PM CDT Temperature 36.2 C (97.2 F) 07/31/2025 4:17 PM CDT Respiratory Rate 18 07/31/2025 4:17 PM CDT Oxygen Saturation 97% 07/31/2025 4:17 PM CDT Inhaled Oxygen Concentration - - Weight 71.4 kg (157 lb 6.4 oz) 07/31/2025 4:17 P M CDT Height 167.6 cm (5' 6) 07/31/2025 4:17 PM CDT Body Mass Index 25.41 07/31/2025 4:17 PM CDT Plan of Treatment Upcoming Encounters Date Type Department Care Team (Late st Contact Info) Description 11/12/2025 11:20 AM CIVIL STRUCTURAL DESIGNER Office Visit [facility] [address] [address] Bret Fraser MD [facility] [address] Chapar[address]a Saleem, [place] [address] [facility] [address] [place] [address] 12/01/2025 8:40 AM CIVIL STRUCTURAL DESIGNER Office Visit [facility] Multispecialty Care - [place] [address] [facility] [address] [place] [address] Bret Fraser MD [address] [facility] [address] [place] [address] Health Maintenance Due Date Last Done Comments Cervical Cancer Screening Pap Smear (Age 30 to 64) Every 3 Years 1965 COVID-19 Vaccine ( season) 2025 05/05/2025, 03/15/2022, 08/27/2021, Additional history exists Influenza Adult (#1) 2025 08/30/2024, 08/10/2022, 10/06/2021, Additional history exists Annual Physical 05/30/2026 05/30/2025, 06/2024, 05/29/2023, Additional history exists Cervical Cancer Screening Pap with HPV Testing (Age 30 to 64) Every 5 Years 08/26/2029 08/26/2024, 02/11/2020 Cervical Cancer Screening with HPV 08/26/2029 Colorectal Cancer Screening Colonoscopy (10 Years) 05/18/2031 05/18/2021 DTaP, Tdap and Td Vaccines (2 - Td or Tdap) 10/31/2032 10/31/2022, 02/01/2016 Zoster Vaccines Completed 04/22/2022, 02/07/2022 Hepatitis C Completed 05/31/2022 PHQ-2 (Physician [place]) Completed 05/30/2025 Pneumococcal Vaccine: 50+ Years Completed 05/30/2025 Hepatitis A Vaccines Aged Out No long er eligible based on patient's age to complete this topic Meningococcal B Vaccine Aged Out No l onger eligible based on patient's age to complete this topic Meningococcal Vaccine Aged Out No marty trisha eligible based on patient's age to complete this topic RSV Immunizations Under 20 Months Aged Out No longer eligible based on patient's age to complete this topic Procedures Procedure Name Priority Date/Time Associated Diagnosis Comments COLLECTION VENOUS BLOOD VENIPUNCTURE Routine 08/04/2025 3:28 PM CDT Drug therapy C-REACTIVE PROTEIN Routine 08/04/2025 3: 17 PM CDT Acute pancreatitis, unspecified complication status, unspecified pancreatitis type (HHS/HCC) COMPREHENSIVE METABOLIC PANEL Routine 08/04/2025 3:17 PM CDT Acute pancreatitis, unspecified complication status, unspecified pancreatitis type (HHS/HCC) AMYLASE Routine 08/04/2025 3:17 PM CDT Acute pancreatitis, unspecified complication status, unspecified pancreatitis type (HHS/HCC) LIPASE Routine 08/04/2025 3:17 PM CDT Acute pancreatitis, unspecified complication status, unspecified pancreatitis type (HHS/HCC) CBC W/DIFF AUTOMATED Routine 08/04/2025 3:17 PM CDT Acute pancreatitis, unspecified complication status, unspecified pancreatitis type (HHS/HCC) HEMOGLOBIN, GLYCOSYLATED Routine 05/30/2025 10:02 AM CDT [...] Recently Relevant to Health Maintenance Results * (ABNORMAL) COMPREHENSIVE METABOLIC PANEL (08/04/2025 3:17 PM CDT) Only the most recent of2 resultswithin the time period is included. SODIUM S/P/B 135(L) 136 - 145 MMOL/L 08/05/2025 10:34 AM CDT MG-[facility] POTASSIUM S/P/B 4.5 3.5 - 5.1 MMOL/L 08/05/2025 10:34 AM CDT -[facility] CHLORIDE S/P/B 98 98 - 107 MMOL/L 08/05/2025 10:34 AM CDT -[facility] CO2 31.0 21 - 32 MMOL/L 08/05/2025 10:34 AM CDT [facility] GLUCOSE 80 70 - 99 MG/DL 08/05/2025 10:34 AM CDT [facility] BUN 11 7 - 18 MG/DL 08/05/2025 10:34 AM CDT [facility] CREATININE S/P/B 0.96 0.55 - 1.02 MG/DL 08/05/2025 10:34 AM CDT [facility] CALCIUM S/P/B 9.3 8.4 - 10.5 MG/DL 08/05/2025 10:34 AM CDT -[facility] BILIRUBIN TOTAL S/P/B 0.4 0.2 - 1.0 MG/DL 08/05/2025 10:34 AM CDT [facility] ALKALINE PHOSPHATASE S/P/B 63 46 - 118 U/L 08/05/2025 10:34 AM CDT [facility] AST 25 15 - 37 U/L 08/05/2025 10:34 AM CDT [facility] ALT 28 14 - 59 U/L 08/05/2025 10:34 AM CDT [facility] TOTAL PROTEIN S/P/B 7.1 6.4 - 8.2 G/DL 08/05/2025 10:34 AM CDT [facility] ALBUMIN S/P/B 4.2 3.4 - 5.0 G/DL 08/05/2025 10:34 AM T [facility] ANION GAP 6.0 5 - 15 MMOL/L 08/05/2025 10:34 AM T [facility] Comment:REFERENCE RANGE NOT ESTABLISHED OSMOLALITY (CALC) 278 MOSM/KG 025 10:34 AM T [facility] Comment:REFERENCE RANGE NOT ESTABLISHED GFR ESTIMATE 68(L) >90 ML/MIN/1. 73 M2 08/05/2025 10:34 AM T [facility] GFR NOTES GFR REFERENCE S: 08/05/2025 10:34 AM [facility] Comment: THE ESTIMATED GFR IS CALCULATED USING THE 2020 CKD-EPI EQUATION. THE FOLLOWING CATEGORIES FOR GRADING RENAL FUNCTION ARE RECOMMENDED BY THE INTERNATIONAL SOCIETY OF NEPHROLOGY (KDIGO 2012 CLINICAL PRACTICE GUIDELINE). G1,NORMAL OR HIGH: >89 ml/min/1.73 m2 G2,MILDLY DECREASED: 60-89 ml/min/1.73 m2 G3A,MILDLY TO MODERATELY DECREASED: 45-59 ml/min/1.73 m2 G3B,MODERATELY TO SEVERELY DECREASED: 30-44 ml/min/1.73 m2 G4,SEVERELY DECREASED: 15-29 ml/min/1.73 m2 G5,KIDNEY FAILURE: <15 ml/min/1.73 m2 08/04/2025 3:17 PM CDT us Bret Fraser MD LABORATORY Final Result Performing Organization Address City/[facility]/ZIP Co de Phone Number [facility] [address] [place] [address], [place] [phone] * C-REACTIVE PROTEIN (08/04/2025 3:17 PM CDT) C-REACTIVE PROTEIN 0.10 <0.30 mg/dL 08/05/2025 10:34 AM CDT [facility] 08/04/2025 3:17 PM CDT us Bret Fraser MD LABORATORY Final Result Performing Organization Address [facility] [[email or web address]] Co de Phone Number [facility]NORTHER[facility] HOSPITALKerry PALA [address] [place] [address], [place] [phone] * CBC W/DIFF AUTOMATED (08/04/2025 3:17 PM CDT) Only the most recent of2 resultswithin the time period is included. WBC 4.49 4.00 - 10.80 x10'3/uL 08/04/2025 8:00 PM CDT [facility] RBC 4.21 4.10 - 5.40 x10'6/uL 08/04/2025 8:00 PM CDT [facility] HGB 12.9 12.0 - 16.0 G/DL 08/04/2025 8:00 PM CDT [facility] HCT 38.7 36.0 - 47.0 % 08/04/2025 8:00 PM CDT [facility] MCV 91.9 78.0 - 100.0 FL 08/04/2025 8:00 PM CDT [facility] MCH 30.6 27.0 - 31.0 PG 08/04/2025 8:00 PM CDT [facility] MCHC 33.3 33.0 - 36.0 G/DL 08/04/2025 8:00 PM CDT -[facility] RDW 11.5 11.5 - 14.5 % 08/04/2025 8:00 PM CDT -[facility] PLT 239 150 - 350 x10'3/uL 08/04/2025 8:00 PM CDT -[facility] MPV 10.3 7.4 - 10.4 FL 08/04/2025 8:00 PM CDT -[facility] DIFFERENTIAL TYPE AUTOMATED DIFFERENTIAL 08/04/2025 8:00 PM CDT -[facility] NEUTROPHILS % 49.2 % 08/04/2025 8:00 PM CDT [facility] LYMPHOCYTES % 35.9 % 08/04/2025 8:00 PM CDT -[facility] MONOCYTES % 7.8 % 08/04/2025 8:00 PM CDT -[facility] EOSINOPHILS % 5.8 % 08/04/2025 8:00 PM CDT MG-[facility] BASOPHILS % 1.1 % 08/04/2025 8:00 PM CDT [facility] IMMATURE GRANS % 0.2 % 08/04/2025 8:00 PM CDT -[facility] ABS. NEUTROPHILS 2.21 1.60 - 8.30 x10'3/uL 08/04/2025 8:00 PM CDT MG-[facility] ABS. LYMPHOCYTES 1.61 0.80 - 4.70 x10'3/uL 08/04/2025 8:00 PM CDT [facility] ABS. MONOCYTES 0.35 0.00 - 1.50 x10'3/uL 08/04/2025 8:00 PM CDT [facility] ABS. EOSINOPHILS 0.26 0.00 - 0.40 x10'3/uL 08/04/2025 8:00 PM [facility]. BASOPHILS 0.05 0.00 - 0.20 x10'3/uL 08/04/2025 8:00 PM CDT [facility] ABS. IMMATURE GRANULOCYTES 0.01 0.00 - 0.03 x10'3/uL 08/04/2025 8:00 PM CDT [facility] 08/04/2025 3:17 PM CDT us Bret Fraser MD LABORATORY Final Result [facility] [address] [place] [address], [place] [phone] * AMYLASE (08/04/2025 3:17 PM CDT) AMYLASE S/P/B 76 25 - 115 UNITS/L 08/05/2025 5:44 PM CDT [facility] 08/04/2025 3:17 PM CDT us Bret Fraser MD LABORATORY Final Result Performing Organization Address City/[facility] [[email or web address]] Co de Phone Number [facility] [address] [place] [address], [place] [phone] [id number] * LIPASE (08/04/2025 3:17 PM CDT) LIPASE 44 16 - 77 UNITS/L 08/05/2025 10:08 AM CDT [facility] Comment:NEW REFERENCE RANGE 08/04/2025 3:17 PM CDT us Bret Fraser MD LABORATORY Final Result Performing Organization Address City/[facility] [[email or web address]] Co de Phone Number [facility] [address] [place] [address], [place] [phone] * CA 15 3, SERUM (05/30/2025 10:02 AM CDT) CA 15 3 S/P/B 10 <32 U/mL [facility] [employer] [facility] Comment: This test was performed using the Siemens (Nuggeta) chemiluminescent method. Values obtained from different assay methods cannot be used interchangeably. CA 15-3 levels, regardless of value, should not be interpreted as absolute evidence of the presence or absence of disease. 05/30/2025 10:0 2 AM CDT 05/30/2025 10:04 AM CDT Narrative [facility] [place] - 05/31/2025 4:17 AM CDT FASTING:NO FASTING: NO Resulting Agency Comment Performing Organization Information: Site ID: [id number] [facility] Address: [address] [place] [phone] Director: Rizwan Michelle MD Bret Fraser MD LABORATORY Final Result Performing Organization Address City/[facility]/ZIP Co de Phone Number [facility] [employer] [address] [address], [place] * TSH W/REFLEX (05/30/2025 10:02 AM CDT) TSH 2.15 0.40 - 4.50 mIU/L [facility] [place] 05/30/2025 10:0 2 AM CDT 05/30/2025 10:04 AM CDT Narrative [facility] [place] - 05/31/2025 4:17 AM CDT FASTING:NO FASTING: NO Resulting Agency Comment Performing Organization Information: Site ID: [id number] [facility] Address: [address] [place] [address] Director: Rizwan Michelle Bret Fraser MD LABORATORY Final Result [facility] [employer] [place], [place] [address] [place] [address], [place] * HEMOGLOBIN, GLYCOSYLATED (05/30/2025 10:02 AM CDT) HGB A1C 5.5 <5.7 % of total Hgb [facility] [place] Comment: For the purpose of screening for the presence of diabetes: <5.7% Consistent with the absence of diabetes 5.7-6.4% Consistent with increased risk for diabetes (prediabetes) > or =6.5% Consistent with diabetes This assay result is consistent with a decreased risk of diabetes. Currently, no consensus exists regarding use of hemoglobin A1c for diagnosis of diabetes in children. According to [place] Diabetes Association (ADA) guidelines, hemoglobin A1c <7.0% represents optimal control in non- diabetic patients. Different metrics may apply to specific patient populations. Standards of Medical Care in Diabetes(ADA). 05/30/2025 10:0 2 AM CDT 05/30/2025 10:04 AM CDT Narrative [facility] [place] - 05/31/2025 4:17 AM CDT FASTING:NO FASTING: NO Resulting Agency Comment Performing Organization Information: Site ID: Name: [facility] Address: [address] [place] [address] Director: Rizwan Michelle Bret Fraser MD LABORATORY Final Result [facility] [place] [facility] [employer] [address], * (ABNORMAL) LIPID PANEL (05/30/2025 10:02 AM CDT) CHOLESTEROL 236(H) <200 mg/dL [place] HDL 68 > OR = 50 mg/dL [place] TRIGLYCERIDES 86 <150 mg/dL [place] LDL (CALCULATED) 149(H) mg/dL (calc) [place] Comment: Reference range: <100 Desirable range <100 mg/dL for primary prevention; <70 mg/dL for patients with CHD or diabetic patients with > or = 2 CHD risk factors. LDL-C is now calculated using the Gaston calculation, which is a validated novel method providing better accuracy than the Friedewald equation in the estimation of LDL-C. Messi VAZQUEZ et al. KIA. 2013;310(19): 7615-6002 (http://education.[employer]/faq/HNV609) CHOL/HDL RATIO 3.5 <5.0 (calc) [place] NON HDL CHOLESTEROL 168(H) <130 mg/dL (calc) [place] Comment: For patients with diabetes plus 1 major ASCVD risk factor, treating to a non-HDL-C goal of <100 mg/dL (LDL-C of <70 mg/dL) is considered a therapeutic option. 05/30/2025 10:0 2 AM CDT 05/30/2025 10:04 AM CDT Narrative [facility] [place] - 05/31/2025 4:17 AM CDT FASTING:NO FASTING: NO Resulting Agency Comment Performing Organization Information: Site ID: [id number] Name: [facility] Address: [facility] [place] [address] Director: Rizwan Michelle Bret Fraser MD LABORATORY Final Result [facility] [place] [address] [address], * (ABNORMAL) URINALYSIS AUTO DIP (05/30/2025) COLOR (U) YELLOW YELLOW [address], [place] TRANSPARENCY CLEAR CLEAR [address], [place] GLUCOSE (U) NEGATIVE NEGATIVE MG/DL [facility], [place] BILIRUBIN (U) NEGATIVE NEGATIVE [address], [place] KETONES MG/DL (U) NEGATIVE NEGATIVE MG/DL [address], [place] SPECIFIC GRAVITY (U) 1.005 1.001 - 1.035 [address], [place] BLOOD (U) TRACE (Non Hemolyzed, Intact)(A) NEGATIVE [address], [place] U PH 6.0 5.0 - 9.0 [address], [place] PROTEIN (U) NEGATIVE NEGATIVE mg/dL [address], [place] UROBILINOGEN 0.2 0.2 - 1.0 EU/dL = mg/dL [facility], [facility] NITRITES NEGATIVE NEGATIVE MG/DL [facility], [facility] LEUKOCYTES (U) TRACE(A) NEGATIVE MG-[address], [place] URINE SPECIMEN OBTAINED BY CLEAN CATCH PROCEDURE / Unknown 05/30/2025 Bret Fraser MD URINE ORDERABLES Final Result [facility], [place] [address] [place] [address], * PAP SMEAR WITH HPV (08/26/2024) 08/26/2024 us [facility] Scanned SCANNING Final Resu lt * HEPATITIS C ANTIBODY (05/31/2022 11:01 AM CDT) HEPATITIS C AB NON-REACTI VE NON-REACT LARISSA 05/31/2022 8:16 PM CDT [facility] Comment: ANTIBODIES TO HCV NOT DETECTED. DOES NOT EXCLUDE THE POSSIBILITY OF EXPOSURE TO HCV. 05/31/2022 11:0 1 AM CDT Bret Fraser MD LABORATORY Final Result [facility] [address] [place] [address], [place] [phone] * COLONOSCOPY GENERIC (05/18/2021) 05/18/2021 Narrative 05/18/2021 Ordered by an unspecified provider. us Documents Scanned SCANNING Final Result from Last 3 Months or Most Recently Relevant to Health Maintenance Insurance [facility] Care Teams Machine Precision Etcher Relationship Specialty Start Date End Date Bret Fraser MD [address] [facility] [address] [place] [address] PCP - General INTERNAL MEDICINE 05/31/22
--- OUTSIDE RECORDS SUMMARY | 2025-08-30 08:25 | XMS_ITS | Encounter Summary ---
Author Organization [facility] Address [address] [place] [address] Care Team Providers Care Box Chipper Name Role Phone Bret Fraser MD Primary Care Provider [phone] Encounter Details Date Type Department Care Team (Late st Contact Info) Description 01/09/2003 Outpatient Historical [facility] Maternal and Ground Floor [facility] [address] [place] [address] Palmer Argueta MD [address] [facility] [address] [place] [address] Social History Tobacco Use Types Packs/Day Years Used Date Smoking Tobacco: Never Assessed Comments Unknown Sex and Gender Information Value Date Recorded Sex Assigned at Not on file Legal Sex Female 5:01 AM [employer]RA[employer] Gender Identity Not on file Sexual Orientation Not on file documented as of this encounter Plan of Treatment Not on file documented as of this encounter Visit Diagnoses Not on filedocumented in this encounter Care Teams Box Chipper Relationship Specialty Start Date End Date Bret Fraser MD [address] [place] [address] PCP - General Internal Medicine 05/28/24 documented as of this encounter
--- OUTSIDE RECORDS SUMMARY | 2025-08-30 08:25 | XMS_ITS | Clinical Summary ---
Author Organization [facility] al Address [address] [place] [address] Care Team Providers Care Pipe Finisher Name Role Phone Tacos Ochoa MD Primary Care Provider [phone] Allergies Active Allergy Reactions Criticality Noted Date [...] (03/04/2021): Added automatically from request for surgery [id number] Breast cancer 04/17/2009 Overview (08/20/2021): 08/13/08 LEFT breast cancer IDC T1c Ni+ M0 ER 21% [facility]- HER2 4.4 BRCA 1/2 negative 08/27/08 LEFT [...] BREAST RECONSTRUCTION 02/20/2009 - 03/22/2009 dr. 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 Gender Identity Not on file Sexual Orientation Not on file Last Filed Vital Signs Vital Sign Reading Time Taken Comments Blood Pressure 134/75 09/28/2021 12:32 PM ASSOCIATE SALES MANAGER Pulse 82 09/28/2021 12:32 PM ASSOCIATE SALES MANAGER Temperature 36.9 C (98.4 F) 08/16/2021 9:32 AM CDT Respiratory Rate 16 08/16/2021 9:32 AM CDT Oxygen Saturation 98% 08/16/2021 9:32 AM CDT Inhaled Oxygen Concentration - - Weight 72.6 kg (160 lb) 09/28/2021 12:32 PM ASSOCIATE SALES MANAGER Height 167.6 cm (5' 6) 09/28/2021 12:32 PM ASSOCIATE SALES MANAGER Body Mass Index 25.82 09/28/2021 12:32 PM ASSOCIATE SALES MANAGER Plan of Treatment Scheduled Procedures Name Priority Associated Diagnoses Date/Ti me COLONOSCOPY Encounter for screening colonoscopy Insurance [facility] CHOICE PLUS [facility] CHOICE PLUS [facility] CHOICE PLUS [facility] CHOICE PLUS Care Teams Pipe Finisher Relationship Specialty Start Date End Date Tacos Ochoa MD PCP - General 06/24/20
--- OUTSIDE RECORDS SUMMARY | 2025-08-30 08:25 | XMS_ITS | Encounter Summary ---
Author Organization [facility] Address [address] [place] [address] Care Team Providers Care Foreign Diplomat Name Role Phone Bret Fraser MD Primary Care Provider [phone] Encounter Details Date Type Department Care Team (Latest Contact Info) Description 02/20/2003 Outpatient Historical [facility] PATIENT IN A BED Naida Wall MD [address] [place] [address] Palmer Argueta MD [address] [facility] [address] [place] [address] PREG COMPL NEC-ANTEPART (Primary Dx) Social History Tobacco Use Types Packs/Day Years Used Date Smoking Tobacco: Never Assessed Comments Unknown Sex and Gender Information Value Date Recorded Sex Assigned at Not on file Legal Sex Female 5:01 AM FOREST 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
--- OUTSIDE RECORDS SUMMARY | 2025-08-30 08:25 | XMS_ITS | Encounter Summary ---
Author Organization [facility] Address [address] [place] [address] Care Team Providers Care Pediatric Physiatrist Name Role Phone Bret Fraser MD Primary Care Provider Encounter Details Date Type Department Care Team (Late st Contact Info) Description 02/20/2003 Outpatient Historical [facility] Maternal and Ground Floor S [facility] [address] [place] [address] Naida Wall MD [address] [place] [address] Social History Tobacco Use Types Packs/Day Years Used Date Smoking Tobacco: Never Assessed Comments Unknown Sex and Gender Information Value Date Recorded Sex Assigned at Not on file Legal Sex Female 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
--- OUTSIDE RECORDS SUMMARY | 2025-08-30 08:25 | XMS_ITS | Encounter Summary ---
Author Organization [employer] Address [address] [place] [address] Care Team Providers Care Medical Clerk Name Role Phone Bret Fraser MD Primary Care Provider [phone] Encounter Details Date Type Department Care Team (Late st Contact Info) Description 02/12/2009 Outpatient Historical [facility], [address] Kady Jones MD [address] [place] [address] [place] [address] Malignant Neoplasm of Breast (Female), Unspecified Site (CMS/HCC) Social History Tobacco Use Types Packs/Day Years Used Date Smoking Tobacco: Never Assessed Comments Unknown Sex and Gender Information Value Date Recorded Sex Assigned at Not on file Legal Sex Female 5:01 AM RN WOMEN SERVICES Gender Identity Not on file Sexual Orientation [...] PM CDT) CA 27-29 16 <38 U/mL [facility] Comment: THIS TEST WAS PERFORMED USING THE SIEMENS (PERI) CHEMILUMINESCENT METHOD. VALUES OBTAINED FROM DIFFERENT ASSAY METHODS CANNOT BE USED INTERCHANGEABLY. CA27.29 LEVELS, REGARDLESS OF VALUE, SHOULD NOT BE INTERPRETED ABSOLUTE EVIDENCE OF THE PRESENCE OR ABSENCE OF DISEASE. Lab test performed by: [employer] [facility] [address] [place] [address] JOSEPH CH MDThis test was performed using the [employer]/Peri CA 27.29 Assay. Blood specimen (specimen) 02/12/2009 8:37 PM CDT 02/12/2009 8:47 PM CDT Kady Jones MD CHEMISTRY ORDERABLES COM Fi nal Result INTERFACE SYSTEM Refer to clinic/hospital department [facility] CLIA# [id number] [address] [place] [address] * (ABNORMAL) COMPREHENSIVE METABOLIC PANEL (02/12/2009 8:37 PM CDT) BUN 17 6 - 20 mg/dL [facility] CALCIUM 9.5 8.6 - 10.2 mg/dL [facility] CHLORIDE 103 96 - 108 mmol/L [facility] ALBUMIN 4.4 3.4 - 4.8 g/dL [facility] CREATININE 0.75 0.51 - 0.95 mg/dL [facility] SODIUM 138 135 - 145 mmol/L [facility] ALT 84(H) 0 - 31 U/L [facility] ALKALINE PHOSPHATASE 56 35 - 104 U/L [facility] BILIRUBIN TOTAL 0.2 0.2 - 1.0 mg/dL [facility] CO2 27 22 - 30 mmol/L [facility] TOTAL PROTEIN 7.0 6.3 - 8.6 g/dL [facility] POTASSIUM 4.5 3.5 - 4.9 mmol/L [facility] GLUCOSE 88 65 - 99 mg/dL [facility] AST 50(H) 12 - 32 U/L [facility] GFR, >60 >=60 mL/min/1.7 sq meter [facility] GFR >60 >=60 mL/min/1.7 sq meter [facility] Comment: Modification of Diet in Renal Disease (MDRD) study formula. Estimated GFR rate interpretative information for both Americans and non- Americans is available on the [facility] Intranet at: [email or web address] Select: Lab Policies and Procedures Select: Reference Ranges - GFR Blood specimen (specimen) 02/12/2009 8:37 PM CDT 02/12/2009 8:37 PM CDT Kady Jones MD CHEMISTRY ORDERABLES Edited INTERFACE SYSTEM Refer to clinic/hospital department [facility] CLIA# [id number] [address] [place] [address] documented in this encounter Visit Diagnoses Diagnosis Malignant neoplasm of breast (female), unspecified site documented in this encounter Care Teams Medical Clerk Relationship Specialty Start Date End Date Bret Fraser MD [address] [place] [address] PCP - General Internal Medicine 05/28/24 documented as of this encounter
--- OUTSIDE RECORDS SUMMARY | 2025-08-30 08:25 | XMS_ITS | Clinical Summary ---
Author Organization [facility] Address [address] [address] Care Team Providers Care Vending Enterprises Supervisor Name Role Phone Tacos Ochoa MD Primary Care Provider [phone] Source Comments [facility] Affiliates and Associated Physician Practices is amultiple site organization consisting of ambulatory clinics and hospital sitesin [place], [place], [place] and [place]. This disclosure is being madepursuant to the Care Everywhere program and may not contain all information available regarding this patient. 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 Gender Identity Not on file [...] SCREENING 1965 LIPID TESTING 1965 MAMMOGRAM 1965 HIV SCREENING 1980 HEPATITIS C SCREENING 09/03/1983 DTAP/TDAP/TD VACCINES (1 - Tdap) 1984 HEPATITIS B VACCINE (1 of 3 - 19+ 3-dose series) 1984 PNEUMOCOCCAL VACCINE 50+ (1 of 1 - PCV) 2015 ZOSTER VACCINE (1 of 2) 2015 DEPRESSION SCREENING 10/23/2024 COVID-19 VACCINE (3 - 2024-2 6 season) 2025 01/30/2021, 01/02/2021 INFLUENZA VACCINE (#1) 2025 5, 08/27/2014 HIB VACCINE Aged Out No longer eligi [...] patient's age to complete this topic Insurance Care Teams Vending Enterprises Supervisor Relationship Specialty Start Date End Date Tacos Ochoa MD [address] [address] PCP - General 01/03/22
--- OUTSIDE RECORDS SUMMARY | 2025-08-30 08:25 | XMS_ITS | Encounter Summary ---
Author Organization [facility] Address [address] [place] [address] Care Team Providers Care Guide Winder Name Role Phone Bret Fraser MD Primary Care Provider [phone] Encounter Details Date Type Department Care Team (Late st Contact Info) Description 10/11/2023 MyChart Message Enc [facility] Multispecialty Care - [place] [address] [address] [place] [address] [place] [address] [place] [address] [phone] Cruise Social History Tobacco Use Types Packs/Day [...] st Contact Info) Description 11/12/2025 11:20 AM TRANSPORT TRUCK DRIVER Office Visit [facility] [address] Bret Fraser MD [facility] [address] [address] Chaparrita Saleem, GENE [address] [facility] [address] [place] [address] 12/01/2025 8:40 AM TRANSPORT TRUCK DRIVER Office Visit [facility] Multispecialty Care - [place] [address] [address] [place] [address] Bret Fraser MD [facility] [address] [address] documented as of this encounter Visit Diagnoses Not on filedocumented in this encounter Care Teams Guide Winder Relationship Specialty Start Date End Date Bret Fraser MD [address] [place] [address] PCP - General INTERNAL MEDICINE 05/31/22 documented as of this encounter
--- OUTSIDE RECORDS SUMMARY | 2025-08-30 08:25 | XMS_ITS | Encounter Summary ---
Author Organization [employer] Address [address] [place] [address] Care Team Providers Care Assembler Utility Buildings Name Role Phone Bret Fraser MD Primary Care Provider [phone] Encounter Details Date Type Department Care Team (Late st Contact Info) Description 03/27/2009 Outpatient Historical [facility], [address] Kady Jones MD [address] [place] [address] [place] [address] Malignant Neoplasm of Breast (Female), Unspecified Site (CMS/HCC) Social History Tobacco Use Types Packs/Day Years Used Date Smoking Tobacco: Never Assessed Comments Unknown Sex and Gender Information Value Date Recorded Sex Assigned at Not on file Legal Sex Female 5:01 AM COOKER SULFITE Gender Identity Not on file Sexual Orientation [...] PM CDT) CA 27-29 15 <38 U/mL [facility] Comment: THIS TEST WAS PERFORMED USING THE SIEMENS (PERI) CHEMILUMINESCENT METHOD. VALUES OBTAINED FROM DIFFERENT ASSAY METHODS CANNOT BE USED INTERCHANGEABLY. CA27.29 LEVELS, REGARDLESS OF VALUE, SHOULD NOT BE INTERPRETED ABSOLUTE EVIDENCE OF THE PRESENCE OR ABSENCE OF DISEASE. Lab test performed by: [employer] [facility] [address] [facility] [place] [address] JOSEPH CH MDThis test was performed using the [employer]/Peri CA 27.29 Assay. 03/27/2009 8:57 PM CDT 03/27/2009 8:59 PM CDT Kady Jones MD CHEMISTRY ORDERABLES COM Fi nal Result INTERFACE SYSTEM Refer to clinic/hospital department [facility] CLIA# [id number] [address] [facility] [place] [address] * (ABNORMAL) COMPREHENSIVE METABOLIC PANEL (03/27/2009 8:57 PM CDT) CO2 27 22 - 30 mmol/L [facility] BILIRUBIN TOTAL 0.3 0.2 - 1.0 mg/dL [facility] POTASSIUM 4.2 3.5 - 4.9 mmol/L [facility] TOTAL PROTEIN 7.0 6.3 - 8.6 g/dL [facility] GLUCOSE 81 65 - 99 mg/dL [facility] AST 38(H) 12 - 32 U/L [facility] BUN 13 6 - 20 mg/dL [facility] CALCIUM 10.0 8.6 - 10.2 mg/dL [facility] ALBUMIN 4.4 3.4 - 4.8 g/dL [facility] CHLORIDE 103 96 - 108 mmol/L [facility] CREATININE 0.80 0.51 - 0.95 mg/dL [facility] ALT 38(H) 0 - 31 U/L [facility] SODIUM 138 135 - 145 mmol/L [facility] ALKALINE PHOSPHATASE 69 35 - 104 U/L [facility] GFR, >60 >=60 mL/min/1.7 sq meter [facility] GFR >60 >=60 mL/min/1.7 sq meter [facility] Comment: Modification of Diet in Renal Disease (MDRD) study formula. Estimated GFR rate interpretative information for both Americans and non- Americans is available on the [facility] Intranet at: [email or web address] Select: Lab Policies and Procedures Select: Reference Ranges - GFR 03/27/2009 8:57 PM CDT 03/27/2009 8:57 PM CDT Kady Jones MD CHEMISTRY ORDERABLES Edited INTERFACE SYSTEM Refer to clinic/hospital department [facility] CLIA# [id number] [address] [place] [address] documented in this encounter Visit Diagnoses Diagnosis Malignant neoplasm of breast (female), unspecified site documented in this encounter Care Teams Assembler Utility Buildings Relationship Specialty Start Date End Date Bret Fraser MD [address] [place] [address] PCP - General Internal Medicine 05/28/24 documented as of this encounter
--- OUTSIDE RECORDS SUMMARY | 2025-08-30 08:25 | XMS_ITS | Encounter Summary ---
Author Organization [facility] Address [address] [place] [address] Care Team Providers Care Orthotist Or Prosthetist Name Role Phone Bret Fraser MD Primary Care Provider [phone] Encounter Details Date Type Department Care Team (Latest Contact Info) Description 01/01/2024 Sparxentt Message Enc [facility] Multispecialty Care - [place] [address] [address] [place] [address] Bret Fraser MD [address] [facility] [address] [place], [place] [phone] me-right flank pain Social History Tobacco Use [...] st Contact Info) Description 11/12/2025 11:20 AM CHILD SUPPORT CASE OFFICER Office Visit [facility] [place] [address] [place] [address] Bret Fraser MD [address] [address] Chaparrita Saleem, GENE 3 [facility] [address] [place] [address] 12/01/2025 8:40 AM CHILD SUPPORT CASE OFFICER Office Visit [facility] Multispecialty [facility] - [address] [place] [address] Bret Fraser MD [address] [address] documented as of this encounter Visit Diagnoses Not on filedocumented in this encounter Additional Health Concerns Assessment Noted Time PHQ-9 Depression Total Score: 2 11/29/19 24 7:52 AM CHILD SUPPORT CASE OFFICER documented as of this encounter Care Teams Orthotist Or Prosthetist Relationship Specialty Start Date End Date Bret Fraser MD [address] [place] [address] PCP - General INTERNAL MEDICINE 05/31/22 documented as of this encounter
--- OUTSIDE RECORDS SUMMARY | 2025-08-30 08:25 | XMS_ITS | Encounter Summary ---
Author Organization [facility] Address [address] [place] [address] Care Team Providers Care [address] Mechanical Engineer Name Role Phone Bret Fraser MD Primary Care Provider [phone] Encounter Details Date Type Department Care Team (Latest Contact Info) Description 02/17/2009 Outpatient Historical [facility], [address] [place] Rachel Calix MD [address] [place] [address] Malignant Neoplasm of Breast (Female), Unspecified Site (CMS/HCC) Social History Tobacco Use Types Packs/Day Years Used Date Smoking Tobacco: Never Assessed Comments Unknown Sex and Gender Information Value Date Recorded Sex Assigned at Not on file 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 Sex Female 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 Gender Identity Not on file Sexual [...] CDT) CALCIUM 9.6 8.6 - 10.2 mg/dL [facility] CHLORIDE 100 96 - 108 mmol/L [facility] ALBUMIN 4.4 3.4 - 4.8 g/dL [facility] CREATININE 0.79 0.51 - 0.95 mg/dL [facility] SODIUM 136 135 - 145 mmol/L [facility] ALT 59(H) 0 - 31 U/L [facility] ALKALINE PHOSPHATASE 55 35 - 104 U/L [facility] BILIRUBIN TOTAL 0.3 0.2 - 1.0 mg/dL [facility] CO2 28 22 - 30 mmol/L [facility] TOTAL PROTEIN 7.1 6.3 - 8.6 g/dL [facility] POTASSIUM 4.1 3.5 - 4.9 mmol/L [facility] GLUCOSE 95 65 - 99 mg/dL [facility] AST 41(H) 12 - 32 U/L [facility] BUN 17 6 - 20 mg/dL [facility] [...] the [facility] Intranet at: [email or web address] Select: Lab Policies and Procedures Select: Reference Ranges - GFR Blood specimen (specimen) 02/17/2009 9:21 PM CDT 02/17/2009 9:21 PM CDT us Rachel Calix MD CHEMISTRY ORDERABLES Edited INTERFACE SYSTEM Refer to clinic/hospital department [facility] CLIA# [id number] [address] [place] [address] * (ABNORMAL) CBC WITH DIFFERENTIAL (02/17/2009 9:21 PM CDT) MCV 93.2 82.0 - 99.0 fL [facility] PLATELETS 201 140 - 350 K/uL [facility] HEMOGLOBIN 12.9 11.8 - 14.8 g/dL [facility] RDW 12.5 11.5 - 14.5 % [facility] WBC 3.0(L) 4.0 - 9.8 K/uL [facility] MCH 31.4 27.2 - 32.6 pg [facility] MPV 11.5 9.3 - 12.4 fL [facility] HEMATOCRIT 38.3 35.5 - 44.0 % [facility] RDW-STDEV 42.0 37.1 - 48.7 fL [facility] RBC 4.11 3.90 - 4.90 M/uL [facility] MCHC 33.7 31.5 - 35.5 % [facility] EOSINOPHILS 3 0 - 7 % [facility] EOSINOPHIL ABSOLUTE 0.09 0.00 - 0.70 K/uL [facility] LYMPHOCYTES 25 16 - 45 % [facility] LYMPHOCYTE ABSOLUTE 0.75 0.70 - 4.50 K/uL [facility] BASOPHILS 1 0 - 2 % [facility] BASOPHILS ABSOLUTE 0.03 0.00 - 0.20 K/uL [facility] MONOCYTES 15(H) 3 - 13 % [facility] MONOCYTE ABSOLUTE 0.43 0.10 - 1.30 K/uL [facility] NEUTROPHILS 56 45 - 70 % [facility] NEUTROPHIL ABSOLUTE 1.65(L) 1.90 - 7.00 K/uL [facility] Blood specimen (specimen) 02/17/2009 9:21 PM CDT 02/17/2009 9:21 PM CDT Narrative INTERFACE SYSTEM - 02/19/2009 2:06 PM CDT faxed to [phone] 02/19/09 14:06 ve us Rachel Calix MD HEMATOLOGY ORDERABLES Edited INTERFACE SYSTEM Refer to clinic/hospital department [facility] CLIA# [id number] [address] [place] [address] documented in this encounter Visit Diagnoses Diagnosis Malignant neoplasm of breast (female), unspecified site documented in this encounter Care Teams Rd Mechanical Engineer Relationship Specialty Start Date End Date Bret Fraser MD [address] [place] [address] PCP - General Internal Medicine 05/28/24 documented as of this encounter
--- OUTSIDE RECORDS SUMMARY | 2025-08-30 08:25 | XMS_ITS | Encounter Summary ---
Author Organization [facility] Address [address] [place] [address] Care Team Providers Care Transformation Specialist Name Role Phone Bret Fraser MD Primary Care Provider Encounter Details Date Type Department Care Team (Late st Contact Info) Description 02/27/2003 Outpatient Historical [facility] Maternal and Ground Floor S [facility] [address] [place] [address] Naida Wall MD [address] [place] [address] Social History Tobacco Use Types Packs/Day Years Used Date Smoking Tobacco: Never Assessed Comments Unknown Sex and Gender Information Value Date Recorded Sex Assigned at Not on file Legal Sex Female 5:01 AM MANAGER STEEL Gender Identity Not on file Sexual Orientation Not on file documented as of this encounter Plan of Treatment Not on file documented as of this encounter Visit Diagnoses Not on filedocumented in this encounter Care Teams Transformation Specialist Relationship Specialty Start Date End Date Bret Fraser MD [address] [place] [address] PCP - General Internal Medicine 05/28/24 documented as of this encounter
--- OUTSIDE RECORDS SUMMARY | 2025-08-30 08:25 | XMS_ITS | Encounter Summary ---
Author Organization [facility] Address [address] [place] [address] Care Team Providers Care Credit Risk Analytics Manager Name Role Phone Bret Fraser MD Primary Care Provider [phone] Encounter Details Date Type Department Care Team (Latest Contact Info) Description 05/08/2009 Outpatient Historical [facility] Dflt Department Kady Jones MD [address] [place] [address] [place] [address] Encounter for Antineoplastic Chemotherapy Social History Tobacco Use Types Packs/Day Years Used Date Smoking Tobacco: Never Assessed Comments No Sex and Gender Information Value Date Recorded Sex Assigned at Not on file 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
--- OUTSIDE RECORDS SUMMARY | 2025-08-30 08:25 | XMS_ITS | Encounter Summary ---
Author Organization [facility] Address 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
--- OUTSIDE RECORDS SUMMARY | 2025-08-30 08:25 | XMS_ITS | Encounter Summary ---
Author Organization [facility] Address [address] [place] [address] Care Team Providers Care Special Education Educational Assistant Name Role Phone Bret Fraser MD Primary Care Provider [phone] Encounter Details Date Type Department Care Team (Latest Contact Info) Description 06/09/2009 Outpatient Historical [facility] Dflt Department Kady Jones MD [address] [place] [address] [place] [address] Encounter for Antineoplastic Chemotherapy Social History Tobacco Use Types Packs/Day Years Used Date Smoking Tobacco: Never Alcohol Use Standard Drinks/Week Comments Yes 0 (1 standard drink = 0.6 oz pur e alcohol) rare Comments No Sex and Gender Information Value Date Recorded Sex Assigned at Not on file 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
--- OUTSIDE RECORDS SUMMARY | 2025-08-30 08:25 | XMS_ITS | Encounter Summary ---
Author Organization [facility] Address [address] [place] [address] Care Team Providers Care It Software Engineer Name Role Phone Bret Fraser MD Primary Care Provider [phone] Encounter Details Date Type Department Care Team (Latest Contact Info) Description 12/12/2002 Outpatient Historical [facility] Sandeep Woo MD [address] [place] [address] ELDER PRIMIGRAVID-ANTEPART UM (Primary Dx) Social History Tobacco Use Types Packs/Day Years Used Date Smoking Tobacco: Never Assessed Comments Unknown Sex and Gender Information Value Date Recorded Sex Assigned at Not on file Legal Sex Female 5:01 AM MANAGER VAN Gender Identity Not on file Sexual Orientation Not on file documented as of this encounter Plan of Treatment Not on file documented as of this encounter Procedures Procedure Name Priority Date/Time Associated Diagnosis Comments POC GLUCOSE Routine 12/13/2005 7:05 AM MANAGER VAN documented in this encounter Results * POC GLUCOSE (12/13/2005 7:05 AM MANAGER VAN) GLUCOSE POC Invalid Result 65 - 109 INTERFACE SYSTEM Comment:incorrect fin#, pt c redited 12/13/2005 7:05 AM MANAGER VAN us Sandeep Woo MD POINT OF CARE TESTING Final Re sult INTERFACE SYSTEM Refer to clinic/hospital department documented in this encounter Visit Diagnoses Diagnosis Elderly primigravida, antepartum- Primary documented in this encounter Care Teams It Software Engineer Relationship Specialty Start Date End Date Bret Fraser MD [address] [place] [address] PCP - General Internal Medicine 05/28/24 documented as of this encounter
--- OUTSIDE RECORDS SUMMARY | 2025-08-30 08:25 | XMS_ITS | Encounter Summary ---
Author Organization [facility] Address [address] [place] [address] Care Team Providers Care Oracle Sql Developer Name Role Phone Bret Fraser MD Primary Care Provider [phone] Encounter Details Date Type Department Care Team (Late st Contact Info) Description 04/17/2009 Outpatient Historical [facility] [address] Kady Jones MD [address] [place] [address] [place] [address] Malignant Neoplasm of Breast (Female), Unspecified Site (CMS/HCC) Social History Tobacco Use Types Packs/Day Years Used Date Smoking Tobacco: Never Assessed Comments No Sex and Gender Information Value Date Recorded Sex Assigned at Not on file 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
--- OUTSIDE RECORDS SUMMARY | 2025-08-30 08:25 | XMS_ITS | Encounter Summary ---
Author Organization [facility] Address [address] [place] [address] Care Team Providers Care Car Repair Supervisor Name Role Phone Bret Fraser MD Primary Care Provider [phone] Encounter Details Date Type Department Care Team (Late st Contact Info) Description 03/31/2003 Outpatient Historical [facility] [address] [facility] [address] [place] [address] Asad Vega MD NO ADDRESS ON FILE Social History Tobacco Use Types Packs/Day Years Used Date Smoking Tobacco: Never Assessed Comments Unknown Sex and Gender Information Value Date Recorded Sex Assigned at Not on file Legal Sex Female 5:01 AM ROCK 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
--- OUTSIDE RECORDS SUMMARY | 2025-08-30 08:25 | XMS_ITS | Clinical Summary ---
Author Organization [facility] Address [address] [place] [address] Care Team Providers Care Soa Integration Architect Name Role Phone Unavailable Primary Care Provider Unavailabl e Social History Tobacco Use Types Packs/Day Years Used Date Smoking Tobacco: Never Assessed Comments Unknown Sex and Gender Information Value Date Recorded Sex Assigned at Not on file Legal Sex Female 12:48 PM RN SURGICAL Gender Identity Not on file Sexual Orientation [...]
--- OUTSIDE RECORDS SUMMARY | 2025-08-30 08:25 | XMS_ITS | Encounter Summary ---
Author Organization [facility] Address [address] [place] [address] Care Team Providers Care Product Distribution Specialist Name Role Phone Bret Fraser MD Primary Care Provider [phone] Encounter Details Date Type Department Care Team (Latest Contact Info) Description 08/05/2025 Results Follow-Up 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 [address] [id number] Bret Fraser MD [address] [place] [address] Chaparrita Saleem NP [address] [facility] [address] [place] [address] 12/01/2025 8:40 AM SENIOR RESEARCH MANAGER Office Visit [facility] [place] [address] [address] [place] [address] Bret Fraser MD [address] [place] [address] documented as of this encounter Visit Diagnoses Not on filedocumented in this encounter Additional Health Concerns Assessment Noted Time PHQ-9 Depression Total Score: 0 05/30/20 25 9:38 AM CDT documented as of this encounter Care Teams Product Distribution Specialist Relationship Specialty Start Date End Date Bret Fraser MD [address] [place] [address] PCP - General INTERNAL MEDICINE 05/31/22 documented as of this encounter
--- OUTSIDE RECORDS SUMMARY | 2025-08-30 08:25 | XMS_ITS | Encounter Summary ---
Author Organization [facility] Address 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
== END 2025-08-30 08:20 | disposition home or self-care (01) ==
PROVIDERS: PCP Internal Medicine; Visit Provider Surgery
DX: K85.90 Acute pancreatitis without necrosis or infection, unspecified (principal)
CPT/HCPCS: 74183; 76376; A9577